=== PATIENT | male | born 1960 | race Caucasian/White ===

== ENCOUNTER 2023-07-20 21:28 | Observation (INO) | payer OTHER, SELFPAY ==
[2023-07-20 21:35] VITALS: BP 140/88; PULSE 78; RESP 16; TEMP 36.8; O2SAT 96; BMI 32.8
--- NOTE | 2023-07-20 21:43 | XR_ITS ---
The [address] [address] Patient Name: RADHA TARIQ MRN: [id number] date: 1960 Sex: M Assigned Patient Location: ER Current Patient Location: ER Accession/Order Number: [id number] Exam Date: 07/20/2023 22:35 Report Date: 07/20/2023 23:02 At the request of: RYAN ACUÑA Procedure: XR hip RT min 2V EXAM: XR hip RT min 2V HISTORY: fall COMPARISON: None. TECHNIQUE: 2 view study FINDINGS: Overall bony architecture is normal. The right hip joint space is satisfactorily maintained. Soft tissues are unremarkable. XR/XR hip RT min 2V IMPRESSION: No evidence for acute fracture or dislocation. Electronically authenticated by: Fozia REED Date: 07/20/2023 23:02
[2023-07-20] MEDS: ADACEL DIPH,PERTUSS(ACELL),TET VAC/PF 0.5 ML ADULT SYRINGE IM (21:55)
[2023-07-20] MEDS: LIDOCAINE HCL 1% 100 MG/10 ML MDV INJ (21:58)
--- NOTE | 2023-07-20 22:43 | CT_ITS ---
The [address] [address] Patient Name: RADHA TARIQ MRN: [id number] date: 1960 Sex: M Assigned Patient Location: ER Current Patient Location: ER Accession/Order Number: [id number] Exam Date: 07/20/2023 23:35 Report Date: 07/21/2023 00:05 At the request of: RYAN ACUÑA Procedure: CT hip RT wo con EXAM: CT hip RT wo con HISTORY: Right hip pain secondary to fall injury. COMPARISON: Right hip x-rays 07/20/2023 TECHNIQUE: Multiple axial views CT right hip without IV contrast. Coronal and sagittal reformats. FINDINGS: Acute comminuted nondisplaced fracture lines at the right anterior acetabulum with a dominant fracture line extending through the right acetabular table and superiorly into the right lower iliac bone. The fracture lines extends to lateral portion of the right superior pubic ramus. Acute nondisplaced right inferior pubic ramus fracture. Surrounding right hip upper thigh intramuscular swelling/edema. Minimal right hip effusion. No dislocation at the right hip joint. No fracture line through the right femoral neck/neck or trochanter. CT/CT hip RT wo con IMPRESSION: Multiple acute right hip bone fractures, as described above. Please see above. Electronically authenticated by: ALONZO MARTIN Date: 07/21/2023 00:05
[2023-07-20] MEDS: MORPHINE SULFATE 4 MG/ML VIAL IV (22:57)
--- NOTE | 2023-07-21 00:09 | ECG_ITS ---
The [facility] Test Date: 2023-07-21 Pat Name: RADHA TARIQ Department: Room: - Gender: Male Reference And Instruction Librarian: : 1960 Requested By: Order Number: [id number] Reading MD: TIA MONTES Measurements Intervals Reserve Rate: 91 P: 9 MA: 132 QRS: -3 QRSD: 104 T: 30 QT: 362 QTc: 411 Interpretive Statements 1100 Sinus rhythm 9110 normal ECG No previous ECG available for comparison Electronically Signed On 07-21-2023 7:05:28 EDT by TIA MONTES
--- NOTE | 2023-07-21 00:17 | ED.FALL1 ---
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 He hit his right forehead area sustaining a laceration the landed on his right hip and that's his main area of pain. No LOC and he doesn't have a headache or neck pain. No chest pain or shortness of breath. He points to the right hip to indicate area of pain. The left hip does not hurt and neither does either knee or ankle. No abdominal pain. This happened just before coming into the emergency department and he wasn't really able to get himself back up. He needed assistance and was brought in and he cannot bear weight on the right leg. Related Data Home Medications Medication Instructions Recorded Confirmed No Known Home Medications 07/20/23 07/20/23 Allergies Allergy/AdvReac Type Severity Reaction Status Date / Time No Known Drug Allergies Allergy Verified 07/20/23 21:40 Review of Systems ROS Narrative A ten point review of systems is negative except as noted above. PFSH PFS Social History Smoking status: Never smoker Exam Narrative Exam Narrative: Nurses note and vital signs reviewed and patient is not hypoxic. General: The patient appears well and in no apparent distress. Skin: Warm, dry, no pallor noted. There is no rash noted. Head: Normocephalic, C-shaped laceration of the right eyebrow without active bleeding. Total length is 2 cm. Eye: Normal conjunctiva, no drainage Ears, Nose, Mouth, and Throat: oral mucosa is moist. Nares patent. cervical spine nontender Cardiovascular: Regular Rate and Rhythm Respiratory: Patient is in no distress, no accessory muscle use, lungs are clear to auscultation, no wheezing, rales or rhonchi Back: non-tender GI: soft and nontender Musculoskeletal: left hip and knee have full range of motion. Small abrasion present on the left lower leg anteriorly. right hip is tender and he is unable to lift that leg off of the bed because of pain. Neurological: A&O x4, normal speech Psychiatric: Cooperative Constitutional Vital Signs, click to edit/add: Last Vital Signs Temp 98.3 F 07/20/23 21:35 Pulse 78 07/20/23 21:35 Resp 16 07/20/23 21:35 BP 140/88 07/20/23 21:35 Pulse Ox 96 07/20/23 21:35 O2 Del Method Room Air 07/20/23 21:35 Course Vital Signs Vital signs: Vital Signs Temperature 98.3 F 07/20/23 21:35 Pulse Rate 78 07/20/23 21:35 Respiratory Rate 16 07/20/23 21:35 Blood Pressure 140/88 07/20/23 21:35 Pulse Oximetry 96 07/20/23 21:35 Oxygen Delivery Method Room Air 07/20/23 21:35 Temperature 98.3 F 07/20/23 21:35 Pulse Rate 78 07/20/23 21:35 Respiratory Rate 16 07/20/23 21:35 Blood Pressure 140/88 07/20/23 21:35 Pulse Oximetry 96 07/20/23 21:35 Oxygen Delivery Method Room Air 07/20/23 21:35 MDM - Fall MDM Narrative Medical decision making narrative: nondisplaced right acetabular and pelvic fractures are identified. Findings are discussed with the patient and his . Orthopedics consulted and he is being admitted. Differential Diagnosis Differential diagnosis: Likely other (hip fracture, hip contusion, pelvic fracture) Imaging Data right hip x-ray, right hip CT: Radiologist's impression: Procedure: CT hip RT wo con EXAM: CT hip RT wo con HISTORY: Right hip pain secondary to fall injury. COMPARISON: Right hip x-rays 07/20/2023 TECHNIQUE: Multiple axial views CT right hip without IV contrast. Coronal and sagittal reformats. FINDINGS: Acute comminuted nondisplaced fracture lines at the right anterior acetabulum with a dominant fracture line extending through the right acetabular table and superiorly into the right lower iliac bone. The fracture lines extends to lateral portion of the right superior pubic ramus. Acute nondisplaced right inferior pubic ramus fracture. Surrounding right hip upper thigh intramuscular swelling/edema. Minimal right hip effusion. No dislocation at the right hip joint. No fracture line through the right femoral neck/neck or trochanter. IMPRESSION: Multiple acute right hip bone fractures, as described above. Please see above. Electronically authenticated by: ALONZO MARTIN Date: 07/21/2023 00:05 Procedure: XR hip RT min 2V EXAM: XR hip RT min 2V HISTORY: fall COMPARISON: None. TECHNIQUE: 2 view study FINDINGS: Overall bony architecture is normal. The right hip joint space is satisfactorily maintained. Soft tissues are unremarkable. IMPRESSION: No evidence for acute fracture or dislocation. Electronically authenticated by: Fozia REED Date: 07/20/2023 Discharge Plan Discharge Chief Complaint: Fall Clinical Impression: Closed pelvic fracture, Acetabulum fracture, right Patient Disposition: Admitted As Inpatient Time of Disposition Decision: 00:21 Condition: Good Prescriptions / Home Meds: No Action No Known Home Medications Stand Alone Forms: Portal Instructions Referrals: MILLY ROCHA DO [Primary Care Provider] - 1 week Procedures ED Procedure Instructions Procedures Procedures: The following procedure was performed by me. Right forehead laceration repair. Local infiltration was carried out with one percent lidocaine without epinephrine resulting in complete skin anesthesia. The area was prepped with Betadine ?3 and draped sterilely. It was explored for foreign bodies and then closed with three 5-0 Ethilon sutures resulting in good skin reapproximation and no complications. He tolerated the procedure well.
[2023-07-21 00:31] LABS: Basophils Percent Auto 0.1 % (0.2-2.0); Eosinophils Absolute Auto 0.1 10^3/uL (0.0-0.7); Eosinophils Percent Auto 0.7 % (0.9-7.0); Hematocrit 40.4 % (42.0-54.0); Hemoglobin 13.4 g/dL (14.0-18.0); Immature Granulocytes Abs Auto 0.04 10^3/uL (0.00-0.03); Immature Granulocytes Pct Auto 0.4 % (0.0-0.5); Lymphocytes Absolute Auto 1.3 10^3/uL (1.2-3.8); Lymphocytes Percent Auto 13.2 % (20.5-60.0); Mean Corpuscular HGB Conc 33.2 g/dL (29.9-35.2); Mean Corpuscular Hemoglobin 32.1 pg (25.9-34.0); Mean Corpuscular Volume 96.9 fL (80.0-94.0); Mean Platelet Volume 10.3 fL (9.5-13.5); Monocytes Absolute Auto 0.8 10^3/uL (0.3-0.8); Monocytes Percent Auto 7.4 % (1.7-12.0); Neutrophils Absolute Auto 7.9 10^3/uL (1.4-6.5); Neutrophils Percent Auto 78.2 % (43.0-75.0); Platelet Count 157 10^3/uL (150-450); Red Blood Count 4.17 10^6/uL (4.70-6.10); Red Cell Distribution Width 12.4 % (11.0-15.0); White Blood Count 10.1 10^3/uL (4.0-11.0)
[2023-07-21] MEDS: MORPHINE SULFATE 4 MG/ML VIAL IV (00:46)
[2023-07-21 00:50] LABS: Anion Gap 9.4; Calcium 7.9 mg/dL (8.5-10.1); Carbon Dioxide 27.3 mmol/L (21.0-32.0); Chloride 106 mmol/L (98-107); Estimated GFR (African America >60 (>=60); Estimated GFR (Non-African Ame >60 (>=60); Glucose 121 mg/dL (74-106); Potassium 3.7 mmol/L (3.5-5.1); Sodium 139 mmol/L (136-145)
[2023-07-21 01:11] VITALS: BP 135/73; PULSE 91; RESP 16; TEMP 36.8; O2SAT 96
[2023-07-21 02:00] VITALS: BP 138/84; PULSE 95; RESP 16; TEMP 37.1; O2SAT 93; BMI 33.7
--- NOTE | 2023-07-21 02:48 | P.PN_ITS ---
Progress Note: Subjective Subjective Interval history: CC: Rt LE pain HPI: This is usually healthy 63-year-old male who presents with above complaints. Patient fell from the ladder while working in his household. Patient stating that since a fall he not been able to bear weight on his right lower extremity. Trauma work-up in the emergency room has been negative besides right ramipril be and right acetabulum fractures. Dr. Salinas has been consulted by ED and going to see patient in the morning. Medical admission recommended. Exam Narrative Exam Narrative: ROS: 1.General: no fever, chills, not in distress 2.HEENT: no MCMULLEN, no blurry vision, no swallow problems, no nasal congestion, no sore throat 3.Pulmonary: no cough, SOB, wheezes 4.CVS: no CP, no palpitations, no SANTA, no SOB, no intermittent claudication 5.GI: no nausea, vomiting or diarrhea, no abdominal pain, no constipation, no hematemesis or hematochezia 6.: no renal colic, no hematuria, urinary frequency or urgency 7.Extremities: no edema 8.Neurological: no dizziness, vertigo, double or blurry vision, no no focal weakness, no paresthesia, no swallow or speech problems 9.Musculosceletal: See above n 10.Dermatological: no skin rashes, no lesions, no pruritus 11.Hematological: no bleeding, no hx/o clots 12.Endocrinological: no heat/cold intolerance, no hx/o diabetes 13.Psychiatric: no suicidal or homicidal thoughts Physical Exam: Not in distress, pleasant, lucid, cooperative, Head - atraumatic, eyes - pupils equal, round, reactive to light, extra ocular movement intact, MMM Neck - supple, thyroid not enlarged, LN not palpated Lungs - clear to auscultation, no dullness on percussion CVS - heart sounds S1, S2, no additional murmurs gallop, regular rate and rhythm Gastrointestinal?abdomen is soft, non-tender, non-distended, no organomegaly, positive bowel sounds Extremities no clubbing, cyanosis or edema Neurological?cranial nerve II?XII grossly intact, no meningeal signs, no cerebellar signs, no sensory deficit Musculoskeletal - joints, no effusions, ROM limited in the right hip due to pain Dermatological - the skin dry, warm, no rashes Psychiatric?patient is AAO X3, patient has normal affect Constitutional Vital Signs, click to edit/add: Last Vital Signs Temp 98.8 F 07/21/23 02:00 Pulse 95 H 07/21/23 02:00 Resp 16 07/21/23 02:00 BP 138/84 07/21/23 02:00 Pulse Ox 93 L 07/21/23 02:00 O2 Del Method Room Air 07/21/23 02:00 Progress Note: Objective Labs Labs: Short CBC 07/21/23 Range/Units 00:25 WBC 10.1 (4.0-11.0) 10^3/uL Hgb 13.4 L (14.0-18.0) g/dL Hct 40.4 L (42.0-54.0) % Plt Count 157 (150-450) 10^3/uL BMP 07/21/23 00:25 Sodium 139 Potassium 3.7 Chloride 106 Carbon Dioxide 27.3 BUN 14.0 Creatinine 1.00 Glucose 121 H Calcium 7.9 L Progress Note: A&P Assessment and Plan (1) Acetabulum fracture, right: Assessment and Plan: Patient presented after the fall with pain in the right side. Imaging studies revealed right acetabulum and right pelvic fracture. I am going to keep patient nonweightbearing for now. Pain regiment ordered. Adjust as needed. Follow-up with Dr. Herrera for further recommendations. (2) Closed pelvic fracture: Assessment and Plan: See above Plan As the provider for the telehealth service, I attest that I introduced myself to the patient, provided my credentials, disclosed by location and determined that based on a review of the patient's chart and discussion with members of the patient's treatment team, telemedicine via real-time, 2 way, and interactive audio and video platform is an appropriate and effective means of providing the service. ?The patient and I mutually agree this visit is appropriate for telemedicine. ?The virtual encounter was taken place from? [facility] [place]. ?The encounter took approximately 35 minutes. ?The nurse was present during the e ntire time and I was able to move the stethoscope in appropriate directions. ?The patient was evaluated at the Hospital ? Portions of this note may be dictated using [employer] voice recognition software. Variances in spelling and vocabulary are possible and unintentional. Not all errors may be caught and/or corrected. Please notify the author if any discrepancies are noted and/or if the meaning of any statement is unclear.? ? Patient verbally consented for treatment via video visit with patient currently located at the [facility] and provider located in [place]. Telemedicine Attestation Telemedicine Attestation I conducted this encounter from [[place]] via secure live, [id number] video conference with the patient, located at [facility] with [pelvic fracture]. Prior to the interview, the risks and benefits of telemedicine were discussed with the patient and verbal consent was obtained.
[2023-07-21 05:18] LABS: Basophils Percent Auto 0.4 % (0.2-2.0); Eosinophils Absolute Auto 0.1 10^3/uL (0.0-0.7); Eosinophils Percent Auto 1.2 % (0.9-7.0); Hematocrit 39.2 % (42.0-54.0); Hemoglobin 12.9 g/dL (14.0-18.0); Immature Granulocytes Abs Auto 0.03 10^3/uL (0.00-0.03); Immature Granulocytes Pct Auto 0.4 % (0.0-0.5); Lymphocytes Absolute Auto 2.1 10^3/uL (1.2-3.8); Lymphocytes Percent Auto 24.7 % (20.5-60.0); Mean Corpuscular HGB Conc 32.9 g/dL (29.9-35.2); Mean Corpuscular Hemoglobin 31.9 pg (25.9-34.0); Mean Platelet Volume 10.4 fL (9.5-13.5); Monocytes Absolute Auto 0.9 10^3/uL (0.3-0.8); Monocytes Percent Auto 10.5 % (1.7-12.0); Neutrophils Absolute Auto 5.3 10^3/uL (1.4-6.5); Neutrophils Percent Auto 62.8 % (43.0-75.0); Platelet Count 142 10^3/uL (150-450); Red Blood Count 4.04 10^6/uL (4.70-6.10); Red Cell Distribution Width 12.4 % (11.0-15.0); White Blood Count 8.4 10^3/uL (4.0-11.0)
[2023-07-21 05:30] LABS: BUN Creatinine Ratio 14.4; Calcium 7.6 mg/dL (8.5-10.1); Carbon Dioxide 28.6 mmol/L (21.0-32.0); Chloride 105 mmol/L (98-107); Estimated GFR (African America >60 (>=60); Estimated GFR (Non-African Ame >60 (>=60); Glucose 116 mg/dL (74-106); Potassium 3.6 mmol/L (3.5-5.1); Sodium 138 mmol/L (136-145)
[2023-07-21 06:00] VITALS: BP 126/75; PULSE 72; RESP 18; TEMP 36.3; O2SAT 92
--- NOTE | 2023-07-21 06:55 | PM.ORCN ---
History of Present Illness HPI Consult date: 07/21/23 Consult reason: fracture Chief complaint: Fall FX ACETABUL RT UM CLOSED PELVIC FX Narrative: Patient was on the fourth rung from the bottom on a ladder yesterday when he fell off onto his right hip with pain and inability to bear weight. Also sustained a laceration to the scalp. In the emergency room a CT was obtained which showed a right acetabular fracture. Patient has been admitted for further treatment. He denies pain elsewhere. Denies paresthesias in his RLE. Review of Systems ROS Status of ROS 10 or more systems reviewed and unremarkable except as noted in history and below [facility] Surgical History (Updated 07/21/23 @ 02:40 by Hitesh Lee) History of appendectomy ?Z90.49 - Acquired absence of other specified parts of digestive tract (ICD-10) History of bilateral knee arthroplasty ?Z96.653 - Presence of artificial knee joint, bilateral (ICD-10) Family History (Updated 07/21/23 @ 02:42 by Hitesh Lee) Grandmother Family history of cancer Family history of stroke Father Family history of diabetes mellitus Family history of hypertension Mother Family history of diabetes mellitus Family history of hypertension Social History (Updated 07/21/23 @ 02:47 by Hitesh Lee) Within the past year, how often did you have a drink containing alcohol: 2-3 times a week Within the past year, how many standard drinks containing alcohol did you have on a typical day: 1 or 2 Within the past year, how often did you have six or more drinks on one occasion: less than monthly Total score: 1 Score interpretation: A score of 4 or more indicates drinking is likely to affect patient's safety. Smoking status: Never smoker Second hand tobacco smoke exposure: No Non-prescribed substance use: denies use Previous occupational history: [employer], armored truck driver Known occupational exposures/hazards: Yes Known occupational exposures/hazards details: chemical exposure Highest level of school completed/degree received: high school graduate Do you want help with school or training: No Are you now , , , , never or living with a partner: In a typical week, how many times do you talk on the telephone with family, friends, or neighbors: 3 or more times per week How often do you get together with friends or relatives: once per week How often do you attend yazdanism or worship services: 4 or more times per year Do you belong to any clubs or organizations such as yazdanism groups unions, fraternal or athletic groups, or school groups: yes Total score: 4 Score interpretation: A score of greater than or equal to 2 indicates the lowest level of social isolation. Little interest or pleasure in doing things: not at all Feeling down, depressed, or hopeless: not at all Feel stressed/tense/nervous/anxious/difficulty sleeping: to some extent Due to disability, difficulty making decisions: No Do you think of yourself as: straight/heterosexual Gender Identity: male Meds Home Medications and Allergies Home Medications Medication Instructions Recorded Confirmed Type No Known Home Medications 07/20/23 07/20/23 History Allergies Allergy/AdvReac Type Severity Reaction Status Date / Time hay fever Allergy Mild Uncoded 07/21/23 02:48 Exam Narrative Exam Narrative: On exam he is in no obvious distress. RLE skin is intact. Pain with log roll of hip. No knee or ankle tenderness. Palp. PT pulse, good cap. refill. Wiggles toes. No LLE or BLE pain with ROM. Constitutional Vital Signs, click to edit/add: Last Vital Signs Temp 97.4 F L 07/21/23 06:00 Pulse 72 07/21/23 06:00 Resp 18 07/21/23 06:00 BP 126/75 07/21/23 06:00 Pulse Ox 92 L 07/21/23 06:00 O2 Del Method Room Air 07/21/23 06:00 Results Labs Labs: Abnormal lab results 07/21/23 07/21/23 Range/Units 00:25 04:50 RBC 4.17 L 4.04 L (4.70-6.10) 10^6/uL Hgb 13.4 L 12.9 L (14.0-18.0) g/dL Hct 40.4 L 39.2 L (42.0-54.0) % MCV 96.9 H 97.0 H (80.0-94.0) fL Plt Count 142 L (150-450) 10^3/uL Neut % (Auto) 78.2 H (43.0-75.0) % Lymph % (Auto) 13.2 L (20.5-60.0) % Eos % (Auto) 0.7 L (0.9-7.0) % Baso % (Auto) 0.1 L (0.2-2.0) % Neut # (Auto) 7.9 H (1.4-6.5) 10^3/uL [place] # (Auto) 0.9 H (0.3-0.8) 10^3/uL Abs Immat Gran (auto) 0.04 H (0.00-0.03) 10^3/uL Glucose 121 H 116 H (74-106) mg/dL Calcium 7.9 L 7.6 L (8.5-10.1) mg/dL H & H 07/21/23 07/21/23 Range/Units 00:25 04:50 Hgb 13.4 L 12.9 L (14.0-18.0) g/dL Hct 40.4 L 39.2 L (42.0-54.0) % All other labs normal. Diagnostic results Hip CT: other (CT right hip shows nondisplaced acetabular fracture) Assessment and Plan Assessment and Plan (1) Acetabulum fracture, right: (2) Closed pelvic fracture: Plan For his right acetabular fracture he will be non weight bearing for 10 - 12 weeks.. PT for gait, transfer training Pain control D/C home when doing well with therapy Follow up in office on 07/27 to repeat x-rays
--- NOTE | 2023-07-21 08:48 | P.HP_ITS ---
Patient seen and examined. Aggtomasa with findings below. Fall with fractures and ortho states nonsurgical. Will remain NWB and start PT. Pain tolerable. If does well with PT likely home in am. Final diagnosis: 1. Acetabular fracture 2. Pubic rami fracture 3. Hyperglycemia. H&P: HPI History of Present Illness Chief complaint: Fall FX ACETABUL RT UM CLOSED PELVIC FX Narrative: Date/Time of exam: 07/21/23814 This is a 63-year-old male patient with a benign past medical history As noted below, who presented to the ED In the early a.m. hours after suffering a mechanical fall at home. 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 He denies any prodromal symptoms leading to his fall confirming that it was a simple mechanical fall. He did suffer a laceration to the right eyebrow but denies any post fall dizziness or vision changes. Work-up in the ED revealed a comminuted, non-displaced right acetabular fracture of the iliac and superior pubic ramus per CT imaging. His R eyebrow lac was sutured in the ED. He is being admitted to the hospitalist service in observation with orthopedic surgery on consult. At the time of my exam this morning the patient is is in no acute distress. He does note significant pain whenever he tries to lift his right leg or coughs. He has already been seen in consult by Dr. Salinas, orthopedic surgeon, who indicated this is a nonsurgical fracture and the patient must remain nonweightbearing for 10-12 weeks. The patient denies any chest pain, shortness of breath, dizziness, palpitations, N/V/D, or any other acute complaints. His pain is adequately controlled with current modalities. Review of Systems ROS Status of ROS 10 or more systems reviewed and unremarkable except as noted in history and below PFSH PFS Surgical History History of appendectomy ?Z90.49 - Acquired absence of other specified parts of digestive tract (ICD- 10) History of bilateral knee arthroplasty ?Z96.653 - Presence of artificial knee joint, bilateral (ICD-10) Family History Grandmother Family history of cancer Family history of stroke Father Family history of diabetes mellitus Family history of hypertension Mother Family history of diabetes mellitus Family history of hypertension Social History Within the past year, how often did you have a drink containing alcohol: 2-3 times a week Within the past year, how many standard drinks containing alcohol did you have on a typical day: 1 or 2 Within the past year, how often did you have six or more drinks on one occasion: less than monthly Total score: 1 Score interpretation: A score of 4 or more indicates drinking is likely to affect patient's safety. Smoking status: Never smoker Second hand tobacco smoke exposure: No Non-prescribed substance use: denies use Previous occupational history: [employer], truck driver rubbish collector Known occupational exposures/hazards: Yes Known occupational exposures/hazards details: chemical exposure Highest level of school completed/degree received: high school graduate Do you want help with school or training: No Are you now , , , , never or living with a partner: In a typical week, how many times do you talk on the telephone with family, friends, or neighbors: 3 or more times per week How often do you get together with friends or relatives: once per week How often do you attend worship or holiness services: 4 or more times per year Do you belong to any clubs or organizations such as worship groups unions, fraternal or athletic groups, or school groups: yes Total score: 4 Score interpretation: A score of greater than or equal to 2 indicates the lowest level of social isolation. Little interest or pleasure in doing things: not at all Feeling down, depressed, or hopeless: not at all Feel stressed/tense/nervous/anxious/difficulty sleeping: to some extent Due to disability, difficulty making decisions: No Do you think of yourself as: straight/heterosexual Gender Identity: male Meds Home Medications and Allergies Home Medications Medication Instructions Recorded Confirmed Type No Known Home Medications 07/20/23 07/20/23 History Allergies Allergy/AdvReac Type Severity Reaction Status Date / Time hay fever Allergy Mild Uncoded 07/21/23 02:48 Exam Constitutional Vital Signs, click to edit/add: Last Vital Signs Temp 97.4 F L 07/21/23 06:00 Pulse 72 07/21/23 06:00 Resp 18 07/21/23 06:00 BP 126/75 07/21/23 06:00 Pulse Ox 92 L 07/21/23 06:00 O2 Del Method Room Air 07/21/23 06:00 Common normals: no apparent distress, oriented x3, alert and well nourished General appearance: cooperative Orientation/consciousness: Yes awake [facility] Common normals: normocephalic, hearing grossly normal bilaterally, external ears normal, external nose normal and moist oral mucous membranes Head and scalp: normocephalic and laceration (R lateral eyebrown, sutures in place) Face and sinus: normal facial exam Nose: external nose normal External ear: external ears normal Eye Common normals: PERRL, EOMs intact bilaterally, conjunctivae normal and no scleral icterus General eye: normal appearance of both eyes Alignment: alignment normal Eyelid: eyelids normal Conjunctiva: conjunctiva(e) normal Pupil: PERRL Neck & C-Spine Common normals: full ROM, supple and no JVD Chest Common normals: inspection of chest normal Chest: symmetrical chest wall rise Respiratory Common normals: normal respiratory effort, no retractions, no use of accessory muscles and clear to auscultation bilaterally Effort & inspection: able to speak in complete sentences Auscultation: clear to auscultation bilaterally Cardio Common normals: no JVD, regular rate, regular rhythm, S1 normal heart sound, S2 normal heart sound, no gallops, no clicks, no murmurs, no rub and peripheral pulses 2+ throughout Rate: regular rate Rhythm: regular rhythm Heart sounds: S1 normal and S2 normal Peripheral pulses: pulses 2+ throughout GI Common normals: Normal to inspection, nondistended, normoactive bowel sounds present, soft to palpation, non-tender, no hepatosplenomegaly, no masses and no bruits Palpation: soft and no hepatosplenomegaly Bladder/kidney exam: bladder normal to palpation Back & Pelvis Common normals: thoracic and lumbar spine normal to inspection Extremity Common normals: normal capillary refill and no pedal edema General: normal exam except as noted; no clubbing and no cyanosis Right lower extremity: hip joint (Pain w/ minimal movement/rotation) and upper leg (Swelling) Neuro Torres Coma Scale: GCS not evaluated Common normals: oriented x3, CN's II-XII intact bilaterally, moves all extremities, no focal motor deficits and no sensory deficits noted Sensorium/orientation: awake and alert Speech: speech normal Motor exam: strength 5/5 throughout Psych Common normals: mental status grossly normal, thought process normal, affect normal and activity/motor behavior normal Thought process: normal thought process Results Labs Labs: Short CBC 07/21/23 07/21/23 Range/Units 00:25 04:50 WBC 10.1 8.4 (4.0-11.0) 10^3/uL Hgb 13.4 L 12.9 L (14.0-18.0) g/dL Hct 40.4 L 39.2 L (42.0-54.0) % Plt Count 157 142 L (150-450) 10^3/uL BMP 07/21/23 07/21/23 00:25 04:50 Sodium 139 138 Potassium 3.7 3.6 Chloride 106 105 Carbon Dioxide 27.3 28.6 BUN 14.0 14.0 Creatinine 1.00 0.97 Glucose 121 H 116 H Calcium 7.9 L 7.6 L Pulse Oximetry Attestation: I have reviewed the pertinent pulse oximetry results. ECG Attestation: ?I have reviewed the pertinent ECG results. Prior ECG tracings: not available for review Interpretation: Interpretive Statements 1100 Sinus rhythm 9110 normal ECG No previous ECG available for comparison Imaging R Hip XR: Attestation: I have reviewed the pertinent imaging results. Radiologist's impression: IMPRESSION: No evidence for acute fracture or dislocation. R Hip CT: Attestation: I have reviewed the pertinent imaging results. Radiologist's impression: IMPRESSION: Multiple acute right hip bone fractures, as described above. Please see above. Assessment and Plan Assessment and Plan (1) Acetabulum fracture, right: Assessment and Plan: ACUTE * Adm Observation * C/S Dr Salinas, Orthopedic Surgeon - we appreciate his assistance with this pt's care * Pain management and weight bearing/PT instructions deferred to the orthopedic service * NWB instructions x 10-12 wks * PT Eval & treat * PRN stool softener to prevent constipation while on narcotic pain medications (2) Hyperglycemia: Assessment and Plan: ACUTE * Mild hyperglycemia on ED and AM labs * Likely reactive to acute fx * Check A1C in AM to assess for undiagnosed pre-diabetes/diabetes baseline * Likely defer to PCP for follow up, but may initiate glycemic control medications prior to d/c pending result * CBC, CMP in AM
[2023-07-21] MEDS: ACETAMINOPHEN 325 MG TABLET 650 MG PO ×3 (08:53→21:29)
--- NOTE | 2023-07-21 12:36 | CM.NOTE ---
Rounds made with Dr. Rivers, awaiting PT and OT to evaluate pt for discharge needs.
[2023-07-21 13:29] VITALS: BP 123/77; PULSE 75; RESP 20; TEMP 37.2
--- NOTE | 2023-07-21 13:49 | SWNOTE1 ---
GARCIA met with pt to discuss dc needs. Pt lives at home with his , he is a [employer]. He had a fall and his fracture non-surgical. Pt is NWB 10-12 weeks. Pt did work with physical therapy and did well, they recommended home health. Pt is agreeable with HH. Pt did use a walker with therapy, he stated he can borrow one from his sister. SW reviewed HH list from medicare.gov, but stated he does not have a preference on HH companies. SW to figure out which company takes his insruance.
--- NOTE | 2023-07-21 14:00 | SWNOTE1 ---
GARCIA called [facility], they do not accept, GARCIA called [facility] and they do not accept. GARCIA reached out to [facility] and they do accept and will need face sheet to run insurance. GARCIA sent to [facility] .
--- NOTE | 2023-07-21 15:44 | SWNOTE1 ---
[facility] is able to accept. SW provided pt with name and phone number of company.
[2023-07-21 19:09] VITALS: RESP 20
[2023-07-21 19:13] VITALS: BP 134/71; PULSE 78; RESP 20; TEMP 36.8; O2SAT 92
[2023-07-22 04:06] VITALS: BP 159/73; PULSE 88; RESP 18; TEMP 36.9; O2SAT 96
[2023-07-22] MEDS: ACETAMINOPHEN 325 MG TABLET 650 MG PO ×2 (04:07→10:12)
[2023-07-22 05:41] LABS: Estimated Average Glucose 114 mg/dL; Glycohemoglobin A1C 5.6 % (4.5-6.2)
[2023-07-22 08:00] VITALS: RESP 16
--- NOTE | 2023-07-22 10:39 | PT.DAILY ---
Physical Therapy Daily Note PT Daily Note/Assess Start: 07/22/23 10:35 Freq: Status: Active Protocol: Document 07/22/23 10:35 GRICELDA (Rec: 07/22/23 10:39 GRICELDA [id number]) Physical Therapy Daily Note/Assessment Time In/Time Out Time In 10:05 Time Out 10:20 Pain In Pain Level 2 Pain Out Pain Level 2 Subjective Subjective Pt supine upon arrival. Agrees to PT. Pain in R hip is 2/10 currently. Planned dc to home with [facility] today - pending Ortho approval. Therapeutic Exercise Time Therapeutic Exercise Minutes (minutes) 8 Therapeutic Exercise Units 1 Therapeutic Exercise Treatment Therapeutic Exercise Treatment Standing ther ex complete at RW with bilat UE support while maintaining NWB R LE - R LE hip flexion, marches, HS curls and AP 10x. L HR 10x. Seated ex in BS chair AP, marches, add squeezes and LAQ 10x ea. Therapeutic Activity Time Therapeutic Activity Minutes (minutes) 5 Therapeutic Activity Units 0 Therapeutic Activity Treatment Bed Mobility Ability Standby Assistance Chair Transfer Ability Standby Assistance Therapeutic Activity Comments Supine>sit SBA with pt using UEs to advance R LE to sit EOB . Sits EOB unsupported 2 min while nursing gives medication . Pt sit>stand from EOB to RW SBA. Pt amb in room 2 laps for 100' total with RW while maintaining NWB R LE. UEs fatigued with this. Remains in BS chair upon completion with call light in reach and needs met. Total Physical Therapy Time Total Therapy Minutes 13 Total Physical Therapy Units 1 Summary Daily Note Summary Good tolerance with session today. No assistance needed for transfers/gait. Able to maintain NWB throughout entire session. Pain does not increase with activity today.
--- NOTE | 2023-07-22 11:08 | P.DS_ITS ---
Patient seen and examined. Agree with assessment below. DS: Providers Provider Date of admission: 07/21/23 01:35 Primary care physician: MILLY ROCHA DO Admitting clinician: Paz Nina Attending physician on admission: Jasmeet Rivers Consults: 07/21/23 09:15 Physical Therapy Eval and Treat Routine Reason for consultation: R acetabular fx, NWB Has provider been notified: No Attending physician on discharge: Jasmeet Rivers Discharging clinician: Paz Nina Anticipated date of discharge: 07/22/23 DS: Diagnosis Discharge Diagnosis (1) Acetabulum fracture, right: (2) Closed pelvic fracture: (3) Hyperglycemia: DS: Summary Hospital Course Hospital Course: Reason for admission: See ER note and H&P for details. 63 y/o male to ER after a fall. Fell off a ladder and landed on right hip. Severe pain and not able to stand or bear weight. To ER and CT showed pubic rami fracture and fracture of acetabulum. Admitted for treatment. Hospital course: Ortho consulted and not surgical. Recommended NWB for 10-12 weeks. Started PT and did well. Pain tolerable with medication. Moving well and able to remain NWB. Patient reported having both a walker and crutches at home. Discharged home in stable condition. Will f/u with ortho as scheduled. Use pain medication PRN. Status at Discharge Functional status at discharge: uses cane/walker Overall status at discharge: patient is not back to baseline Time Spent with Patient Time attestation: Total time spent providing and/or coordinating discharge services: Time spent: greater than 30 minutes Specific discharge activities: Physical exam, discussion of discharge plan, questions answered. Exam Constitutional Vital Signs, click to edit/add: Last Vital Signs Temp 98.4 F 07/22/23 04:06 Pulse 88 07/22/23 04:06 Resp 16 07/22/23 08:00 BP 159/73 H 07/22/23 04:06 Pulse Ox 96 07/22/23 04:06 O2 Del Method Room Air 07/22/23 04:06 O2 Flow Rate 94 07/21/23 13:29 Common normals: no apparent distress, oriented x3 and alert General appearance: cooperative Orientation/consciousness: Yes awake [facility] Common normals: normocephalic and head/scalp atraumatic Head and scalp: normocephalic and atraumatic Eye Common normals: PERRL, EOMs intact bilaterally, conjunctivae normal and no scleral icterus Conjunctiva: conjunctiva(e) normal Pupil: PERRL Neck & C-Spine Common normals: no JVD Respiratory Common normals: normal respiratory effort, no use of accessory muscles and clear to auscultation bilaterally Effort & inspection: able to speak in complete sentences and symmetric chest movement Auscultation: clear to auscultation bilaterally Cardio Common normals: no JVD, regular rate, regular rhythm, S1 normal heart sound, S2 normal heart sound, no gallops, no clicks, no murmurs, no rub and peripheral pulses 2+ throughout Rate: regular rate Rhythm: regular rhythm Heart sounds: S1 normal and S2 normal Peripheral pulses: pulses 2+ throughout GI Common normals: Normal to inspection, nondistended, normoactive bowel sounds present, soft to palpation and non-tender Palpation: soft Bladder/kidney exam: bladder normal to palpation Extremity Common normals: normal to inspection, normal capillary refill and no pedal edema General: no clubbing and no cyanosis Right lower extremity: hip joint Right hip: palpation (Tender) and ROM (Decreased ROM 2/2 pain) Neuro Common normals: oriented x3, CN's II-XII intact bilaterally, moves all extremities, no focal motor deficits and no sensory deficits noted Sensorium/orientation: awake and alert Speech: speech normal Psych Common normals: mental status grossly normal and activity/motor behavior normal Appearance: grossly normal DS: Data Data Completed and Pending Completed studies during hospitalization: R Hip XR: IMPRESSION: No evidence for acute fracture or dislocation. Hip CT: IMPRESSION: Multiple acute right hip bone fractures, as described above. Please see above. Labs on day of discharge: Labs from last 24 hours 07/22/23 05:13 Estimat Average Glucose 114 Hemoglobin A1c 5.6 Discharge Plan Discharge Disposition: Home Health Service Condition: Good Discharge Medications: New acetaminophen 325 mg Tablet 650 mg PO Q6H PRN (Reason: pain) Qty: 60 0RF hydrocodone-acetaminophen 5-325 mg Tablet 1 tab PO Q6H PRN (Reason: Pain) Qty: 20 0RF sennosides-docusate sodium [Senna Plus] 8.6-50 mg Tablet 1 tab PO BID PRN (Reason: Constipation) Qty: 60 0RF Rx Instructions: May take up to 2 tabs twice daily Patient Instructions: Acetaminophen (By mouth), Hydrocodone/Acetaminophen (By mouth), Senna (By mouth) (Senna, Senna-lax), Pelvic Fracture (ED) Activity Restrictions/Additional Instructions: - Maintain R leg non-weightbearing until instructed otherwise by Dr Perez - Follow up w/ Dr Perez on 07/27/23 at 11 AM - Home health services for PT/OT and intermediate monitoring of pain manageme nt and safety at home [employer] Instructions: Discharge with [facility], phone number is [phone] Forms: Portal Instructions Follow Up Appointments: Dr Perez 07/27/23 @ 11:00 am Discharge Date/Time: 07/22/23 13:08
--- NOTE | 2023-07-22 12:45 | CM.NOTE ---
Rounds made with Dr. Rivers this am, ok to discharge to home. Pt verbalizes that he does have walker and crutches at home and verbalizes being comfortable with using either and his NWB status.
--- NOTE | 2023-07-22 14:10 | SWNOTE1 ---
Pt is discharged today and will discharge with [facility], SW sent discharge orders to home health.
--- NOTE | 2023-07-23 16:12 | CM.DCFOLLOWU ---
Person spoke with: patient How are you feeling? well, pain controlled How is your pain? controlled Did you understand your discharge instructions? yes Do you have any questions about your discharge instructions? no Were you given any prescriptions at discharge? yes Were you able to get your prescriptions filled? yes Do you understand how to take your medications as ordered? yes Do you have any questions about your follow up appointment and do you plan to keep your follow up appointment? no questions, follow up with Dr. Perez on 07/27 Is there anything else that you would like to discuss? not at this time Questions/Comments/Concerns/Other:
== END 2023-07-22 13:08 | disposition home health service (06) ==
LOC: ER 07-21 00:22 → MS 07-21 02:44
PROVIDERS: Admitting Provider Internal Medicine; Emergency Provider Emergency Medicine; PCP Family Medicine; Visit Provider Nurse Practitioner
DX: S32.401A Unspecified fracture of right acetabulum, initial encounter for closed fracture (principal); S32.501A Unspecified fracture of right pubis, initial encounter for closed fracture; R73.9 Hyperglycemia, unspecified; S01.81XA Laceration without foreign body of other part of head, initial encounter; Z23 Encounter for immunization; W11.XXXA Fall on and from ladder, initial encounter; Z90.49 Acquired absence of other specified parts of digestive tract; Z96.653 Presence of artificial knee joint, bilateral
CPT/HCPCS: 12011; 36415; 73502; 73700; 80048; 83036; 85025; 90471; 90715; 93005; 96374; 96376; 97110; 97116; 97161; 97530; 99285; G0378; Q3014

== ENCOUNTER 2023-07-27 10:55 | Outpatient (OUT) | payer OTHER, SELFPAY ==
--- NOTE | 2023-07-27 11:01 | XR_ITS ---
[address] [address] Patient Name: RADHA TARIQ MRN: [id number] date: 1960 Sex: M Assigned Patient Location: [facility] Current Patient Location: Accession/Order Number: [id number] Exam Date: 07/27/2023 11:05 Report Date: 07/28/2023 07:58 At the request of: MARTIN VILLATORO Procedure: XR hip RT 2V w/ pelvis PROCEDURE: XR hip RT 2V w/ pelvis COMPARISON: 07/20/2023 HISTORY: Right hip pain M25.551 FINDINGS: BONES:Right acetabular fractures seen by CT exam are poorly seen on plain x-ray . No new fracture or dislocation. Mild bilateral hip osteoarthropathy. Moderate degenerative changes of the visualized lumbar spine SOFT TISSUES:Negative. No visible soft tissue swelling. EFFUSION:None visible. OTHER: Negative. XR/XR hip RT 2V w/ pelvis IMPRESSION: No definite abnormality observed by X-ray Electronically authenticated by: RADHA CADET Date: 07/28/2023 07:58
== END 2023-07-27 10:56 | disposition home or self-care (01) ==
LOC: RAD 10:55
PROVIDERS: PCP Family Medicine; Visit Provider Orthopaedic Surgery
DX: M25.551 Pain in right hip (principal)
CPT/HCPCS: 73502

== ENCOUNTER 2023-08-03 09:09 | Outpatient (OUT) | payer OTHER, SELFPAY ==
--- NOTE | 2023-08-03 09:13 | XR_ITS ---
The [address] [address] Patient Name: RADHA TARIQ MRN: [id number] date: 1960 Sex: M Assigned Patient Location: [facility] Current Patient Location: [facility] Accession/Order Number: [id number] Exam Date: 08/03/2023 09:45 Report Date: 08/03/2023 13:15 At the request of: MARTIN VILLATORO Procedure: XR hip RT 2V w/ pelvis PROCEDURE: XR hip RT 2V w/ pelvis HISTORY: Closed Displaced Fracture Right Acetabulum S32.401A COMPARISON: XR hip right 07/27/2023 FINDINGS: BONES:Small fracture line extending from anterior acetabulum into right superior pubic ramus. No additional fractures of the anterior acetabulum seen on prior CT study are not visible. SOFT TISSUES:No visible soft tissue swelling. EFFUSION:None visible. OTHER: Negative. XR/XR hip RT 2V w/ pelvis IMPRESSION: 1. Hip radiographs will provide limited follow-up ability of the previously seen nondisplaced right acetabulum fractures. A single fracture line extending into the lateral aspect of the right superior pubic ramus is visible and appears unchanged. Electronically authenticated by: MARTIN TIPTON Date: 08/03/2023 13:15
== END 2023-08-03 09:10 | disposition home or self-care (01) ==
LOC: RAD 09:09
PROVIDERS: PCP Family Medicine; Visit Provider Orthopaedic Surgery
DX: S32.401A Unspecified fracture of right acetabulum, initial encounter for closed fracture (principal)
CPT/HCPCS: 73502

== ENCOUNTER 2023-08-31 08:35 | Outpatient (OUT) | payer OTHER, SELFPAY ==
--- NOTE | 2023-08-31 08:36 | XR_ITS ---
The [address] [address] Patient Name: RADHA TARIQ MRN: [id number] date: 1960 Sex: M Assigned Patient Location: [facility] Current Patient Location: [facility] Accession/Order Number: [id number] Exam Date: 08/31/2023 08:40 Report Date: 08/31/2023 10:35 At the request of: MARTIN VILLATORO Procedure: XR hip RT 2V w/ pelvis PROCEDURE: XR hip RT 2V w/ pelvis HISTORY: Other Specified Fracture Of Right Acetabulum S32.491D ; follow-up acetabular fracture COMPARISON: XR hip right 08/03/2023, CT hip right 07/27/2023a FINDINGS: BONES:Suspected nondisplaced fracture line extending cephalad from the medial aspect of the right acetabulum and also within the superior pubic ramus near the symphysis pubis. SOFT TISSUES:No visible soft tissue swelling. EFFUSION:None visible. OTHER: Negative. XR/XR hip RT 2V w/ pelvis IMPRESSION: 1. Known, nondisplaced right pelvic/acetabular fractures seen on prior CT study. No appreciable displacement on today's plain film studies. Electronically authenticated by: MARTIN TIPTON Date: 08/31/2023 10:35
== END 2023-08-31 08:36 | disposition home or self-care (01) ==
LOC: RAD 08:35
PROVIDERS: PCP Family Medicine; Visit Provider Orthopaedic Surgery
DX: S32.491D Other specified fracture of right acetabulum, subsequent encounter for fracture with routine healing (principal)
CPT/HCPCS: 73502

== ENCOUNTER 2023-09-22 20:00 | Emergency (ER) | payer OTHER, SELFPAY ==
[2023-09-22 20:03] VITALS: BP 144/86; PULSE 93; RESP 16; TEMP 36.3; O2SAT 97; BMI 31.9
--- NOTE | 2023-09-22 20:16 | ED_ITS ---
HPI - Extremity Problem General Chief complaint: Extremity Problem, Nontraumatic Stated complaint: LE PAIN Time Seen by Provider: 09/22/23 20:10 Source: patient Mode of arrival: crutches Limitations: no limitations History of Present Illness HPI Narrative: Patient is a 63-year-old male who presents to the emergency department for 2-day history of swelling to the right lower extremity. Patient was diagnosed with a nonoperative right acetabular fracture 2 months ago and has been using crutches, he has been nonweightbearing. He states since yesterday he has noted swelling and subjective warmth to the right posterior calf. He states he feels as though the leg is swollen distal to the right knee. There has not been any significant redness. No open wounds or drainage. No fevers or vomiting. He states he otherwise feels fine. He has no pain to the area. He denies any new injuries or traumas. He has no history of blood disorder or blood clots. He does not take blood thinners. Related Data Home Medications Medication Instructions Recorded Confirmed calcium 500 mg tablet mg 09/22/23 Previous Rx's Medication Instructions Recorded apixaban 5 mg tablet (Eliquis) See Rx Instructions .Route 09/22/23 .COMPLEX 28 days #70 tabs Allergies Allergy/AdvReac Type Severity Reaction Status Date / Time hay fever Allergy Mild Uncoded 09/22/23 20:09 Review of Systems ROS Constitutional Denies: fever or chills Eyes Denies: change in vision Ears, nose, mouth, and throat Denies: throat pain or nasal congestion Cardiovascular Denies: chest pain Respiratory Denies: shortness of breath Gastrointestinal Denies: nausea or vomiting Musculoskeletal Reports: extremity swelling; Denies: back pain, neck pain or extremity pain Integumentary/Breast Denies: rash, redness, skin pain or skin tenderness Neurological Denies: numbness in extremities or weakness in extremities Hematologic/Lymphatic Denies: easy bruising Allergic/Immunologic Denies: hives PFSH PFSH Surgical History History of appendectomy ?Z90.49 - Acquired absence of other specified parts of digestive tract (ICD- 10) History of bilateral knee arthroplasty ?Z96.653 - Presence of artificial knee joint, bilateral (ICD-10) Family History Grandmother Family history of cancer Family history of stroke Father Family history of diabetes mellitus Family history of hypertension Mother Family history of diabetes mellitus Family history of hypertension Social History Within the past year, how often did you have a drink containing alcohol: 2-3 times a week Within the past year, how many standard drinks containing alcohol did you have on a typical day: 1 or 2 Within the past year, how often did you have six or more drinks on one occasion: less than monthly Total score: 1 Score interpretation: A score of 4 or more indicates drinking is likely to affect patient's safety. Smoking status: Never smoker Second hand tobacco smoke exposure: No Non-prescribed substance use: denies use Previous occupational history: [employer], truck sales manager Known occupational exposures/hazards: Yes Known occupational exposures/hazards details: chemical exposure Highest level of school completed/degree received: high school graduate Do you want help with school or training: No Are you now , , , , never or living with a partner: In a typical week, how many times do you talk on the telephone with family, friends, or neighbors: 3 or more times per week How often do you get together with friends or relatives: once per week How often do you attend bahai or baptism services: 4 or more times per year Do you belong to any clubs or organizations such as bahai groups unions, fraternal or athletic groups, or school groups: yes Total score: 4 Score interpretation: A score of greater than or equal to 2 indicates the lowest level of social isolation. Little interest or pleasure in doing things: not at all Feeling down, depressed, or hopeless: not at all Feel stressed/tense/nervous/anxious/difficulty sleeping: to some extent Due to disability, difficulty making decisions: No Do you think of yourself as: straight/heterosexual Gender Identity: male Exam Narrative Exam Narrative: Gen.: Awake, alert, in no distress Head: Normocephalic, atraumatic ENT: Moist mucous membranes Respiratory: No respiratory distress Extremities: Moves extremities equally, right calf is edematous with no noted erythema or open wounds. No red streaking. No warmth noted. DP pulse is palpable in the right foot. Psych: Normal mood and affect Neuro: No focal neuro deficit Skin: Warm, dry, intact Constitutional Vital Signs, click to edit/add: Last Vital Signs Temp 97.4 F L 09/22/23 20:03 Pulse 87 09/22/23 21:32 Resp 16 09/22/23 20:03 BP 140/87 09/22/23 21:32 Pulse Ox 96 09/22/23 21:32 O2 Del Method Room Air 09/22/23 20:03 Course Vital Signs Vital signs: Vital Signs Temperature 97.4 F L 09/22/23 20:03 Pulse Rate 93 H 09/22/23 20:03 Respiratory Rate 16 09/22/23 20:03 Blood Pressure 144/86 H 09/22/23 20:03 Pulse Oximetry 97 09/22/23 20:03 Oxygen Delivery Method Room Air 09/22/23 20:03 Temperature 97.4 F L 09/22/23 20:03 Pulse Rate 87 09/22/23 21:32 Respiratory Rate 16 09/22/23 20:03 Blood Pressure 140/87 09/22/23 21:32 Pulse Oximetry 96 09/22/23 21:32 Oxygen Delivery Method Room Air 09/22/23 20:03 MDM - Extremity (Nontraumatic) MDM Narrative Medical decision making narrative: Lab studies are unremarkable, patient with stable vital signs, no complaints of chest pain or shortness of breath. Ultrasound shows DVT in the right proximal femoral to right popliteal vein with associated superficial saphenous clot. Patient reevaluated by attending physician. He will be given a dose of Lovenox this evening and started on Eliquis for home. It is recommended he have close follow-up with PCP and return to the ER if symptoms change or worsen. Medical Records Attestation: I reviewed the patient's medical records. Lab Data Attestation: I reviewed the patient's lab results. Labs: Lab Results 09/22/23 Range/Units 20:30 WBC 9.5 (4.0-11.0) 10^3/uL RBC 4.55 L (4.70-6.10) 10^6/uL Hgb 14.0 (14.0-18.0) g/dL Hct 42.3 (42.0-54.0) % MCV 93.0 (80.0-94.0) fL MCH 30.8 (25.9-34.0) pg MCHC 33.1 (29.9-35.2) g/dL RDW 12.4 (11.0-15.0) % Plt Count 148 L (150-450) 10^3/uL MPV 10.1 (9.5-13.5) fL Neut % (Auto) 57.0 (43.0-75.0) % Lymph % (Auto) 31.5 (20.5-60.0) % [place] % (Auto) 7.8 (1.7-12.0) % Eos % (Auto) 2.7 (0.9-7.0) % Baso % (Auto) 0.4 (0.2-2.0) % Neut # (Auto) 5.4 (1.4-6.5) 10^3/uL Lymph # (Auto) 3.0 (1.2-3.8) 10^3/uL [place] # (Auto) 0.7 (0.3-0.8) 10^3/uL Eos # (Auto) 0.3 (0.0-0.7) 10^3/uL Baso # (Auto) 0.0 (0.0-0.1) 10^3/uL Abs Immat Gran (auto) 0.06 H (0.00-0.03) 10^3/uL Imm/Tot Granulo (auto) 0.6 H (0.0-0.5) % PT 10.7 (9.0-11.6) sec INR 1.01 Sodium 139 (136-145) mmol/L Potassium 4.1 (3.5-5.1) mmol/L Chloride 103 (98-107) mmol/L Carbon Dioxide 28.3 (21.0-32.0) mmol/L Anion Gap 11.8 BUN 20.0 H (7.0-18.0) mg/dL Creatinine 1.13 (0.70-1.30) mg/dL Est GFR ( Amer) >60 (>=60) Est GFR (Non-Af Amer) >60 (>=60) BUN/Creatinine Ratio 17.7 Glucose 107 H (74-106) mg/dL Lactate 1.4 (0.4-2.0) mmol/L Calcium 8.6 (8.5-10.1) mg/dL Total Bilirubin 0.6 (0.2-1.0) mg/dL AST 27 (15-37) U/L ALT 16 (16-63) U/L Alkaline Phosphatase 84 (46-116) U/L Total Protein 7.2 (6.4-8.2) g/dL Albumin 3.4 (3.4-5.0) g/dL Globulin 3.8 g/dL Albumin/Globulin Ratio 0.9 Imaging Data Venous US: Attestation: I have reviewed the pertinent imaging results. Radiologist's impression: DVT in the right proximal femoral vein extending to the right popliteal vein with superficial saphenous clot Discharge Plan Discharge Chief Complaint: Extremity Problem, Nontraumatic Clinical Impression: Deep vein thrombosis of lower extremity Patient Disposition: Home, Self-Care Time of Disposition Decision: 21:16 Condition: Good Prescriptions / Home Meds: New Eliquis 5 mg tablet See Rx Instructions .ROUTE .COMPLEX 28 Days Qty: 70 0RF Rx Instructions: 10 mg PO BID x 7 days, then 5 mg BID x 21 days No Action calcium 500 mg tablet Instructions: Deep Vein Thrombosis (ED), Blood Thinners (ED) Additional Instructions: Please follow up closely with your doctor Stand Alone Forms: Portal Instructions Referrals: MILLY ROCHA DO [Primary Care Provider] - 1 week Discharge Date/Time: 09/22/23 21:41
--- NOTE | 2023-09-22 20:16 | US_ITS ---
The [address] [address] Patient Name: RADHA TARIQ MRN: [id number] date: 1960 Sex: M Assigned Patient Location: ER Current Patient Location: Accession/Order Number: [id number] Exam Date: 09/22/2023 20:36 Report Date: 09/22/2023 21:42 At the request of: DIGNA MADDOX Procedure: US venous doppler LE RT US venous doppler LE RT, 09/22/2023 8:36 PM EST INDICATION: DVT COMPARISON: None available at the time of dictation. FINDINGS: Right lower extremity venous duplex. There is extensive deep venous thrombosis identified in the right lower extremity extending from the proximal femoral vein distally into the popliteal vein. There is no evidence of deep venous thrombosis within the posterior tibial, anterior tibial or peroneal veins in the calf. There is superficial venous thrombus identified in the proximal to mid small saphenous vein. US/US venous doppler LE RT IMPRESSION: 1. Deep venous thrombosis in the right lower extremity extending from the proximal femoral vein distally into the popliteal vein. 2. Superficial venous thrombosis in the proximal to mid small saphenous vein. Dr. Maddox, the ordering clinician, was notified by the certified performance technologist at the time of the examination. Electronically authenticated by: REBEKAH GILLIAM Date: 09/22/2023 21:42
[2023-09-22 20:20] VITALS: PULSE 93
[2023-09-22 20:37] LABS: Basophils Percent Auto 0.4 % (0.2-2.0); Eosinophils Absolute Auto 0.3 10^3/uL (0.0-0.7); Eosinophils Percent Auto 2.7 % (0.9-7.0); Hematocrit 42.3 % (42.0-54.0); Immature Granulocytes Abs Auto 0.06 10^3/uL (0.00-0.03); Immature Granulocytes Pct Auto 0.6 % (0.0-0.5); Lymphocytes Percent Auto 31.5 % (20.5-60.0); Mean Corpuscular HGB Conc 33.1 g/dL (29.9-35.2); Mean Corpuscular Hemoglobin 30.8 pg (25.9-34.0); Mean Platelet Volume 10.1 fL (9.5-13.5); Monocytes Absolute Auto 0.7 10^3/uL (0.3-0.8); Monocytes Percent Auto 7.8 % (1.7-12.0); Neutrophils Absolute Auto 5.4 10^3/uL (1.4-6.5); Platelet Count 148 10^3/uL (150-450); Red Blood Count 4.55 10^6/uL (4.70-6.10); Red Cell Distribution Width 12.4 % (11.0-15.0); White Blood Count 9.5 10^3/uL (4.0-11.0)
[2023-09-22 20:51] LABS: INR 1.01; Prothrombin Time 10.7 sec (9.0-11.6)
[2023-09-22 20:52] LABS: Alanine Aminotransferase 16 U/L (16-63); Albumin Globulin Ratio 0.9; Albumin Level 3.4 g/dL (3.4-5.0); Alkaline Phosphatase 84 U/L (46-116); Anion Gap 11.8; Aspartate Amino Transferase 27 U/L (15-37); BUN Creatinine Ratio 17.7; Bilirubin Total 0.6 mg/dL (0.2-1.0); Calcium 8.6 mg/dL (8.5-10.1); Carbon Dioxide 28.3 mmol/L (21.0-32.0); Chloride 103 mmol/L (98-107); Estimated GFR (African America >60 (>=60); Estimated GFR (Non-African Ame >60 (>=60); Globulin 3.8 g/dL; Glucose 107 mg/dL (74-106); Potassium 4.1 mmol/L (3.5-5.1); Sodium 139 mmol/L (136-145); Total Protein 7.2 g/dL (6.4-8.2)
[2023-09-22 20:54] LABS: Lactate/Lactic Acid 1.4 mmol/L (0.4-2.0)
[2023-09-22] MEDS: ENOXAPARIN SODIUM 120 MG/0.8 ML SYRINGE 110 MG SUBQ (21:29)
[2023-09-22 21:32] VITALS: BP 140/87; PULSE 87; O2SAT 96
== END 2023-09-22 21:41 | disposition home or self-care (01) ==
PROVIDERS: Physician Assistant; Emergency Provider Internal Medicine; PCP Family Medicine
DX: I82.411 Acute embolism and thrombosis of right femoral vein (principal); I82.431 Acute embolism and thrombosis of right popliteal vein; I82.811 Embolism and thrombosis of superficial veins of right lower extremity; S32.401D Unspecified fracture of right acetabulum, subsequent encounter for fracture with routine healing; Z96.653 Presence of artificial knee joint, bilateral; X58.XXXD Exposure to other specified factors, subsequent encounter
CPT/HCPCS: 36415; 80053; 83605; 85025; 85610; 93971; 99285

== ENCOUNTER 2023-10-19 08:02 | Outpatient (OUT) | payer OTHER, SELFPAY ==
--- NOTE | 2023-10-19 | XR_ITS ---
The [address] [address] Patient Name: RADHA TARIQ MRN: [id number] date: 1960 Sex: M Assigned Patient Location: RAD Current Patient Location: RAD Accession/Order Number: [id number] Exam Date: 10/19/2023 08:10 Report Date: 10/19/2023 09:30 At the request of: MARTIN VILLATORO Procedure: XR hip RT 1V w/ pelvis EXAM: XR hip RT 1V w/ pelvis HISTORY: RIGHT HIP F/U IMAGING COMPARISON: Right hip and pelvis study dated 08/31/2023 TECHNIQUE: Two-view right hip and AP view pelvis study was performed with 3 images obtained in total. FINDINGS: Previously noted right pelvic/acetabular fractures not convincingly demonstrated which may be related to interval healing. Correlate clinically. Follow-up as needed. Mild degenerative changes about the hip joints. Mild degenerative changes about the visualized lower lumbar spine. A few calcifications overlying the pelvis compatible with phleboliths. Soft tissues are grossly within normal limits. XR/XR hip RT 1V w/ pelvis IMPRESSION: Right hip and AP view pelvis study fails to demonstrate evidence of acute fracture or dislocation. Previously suggested fractures on the right not convincingly demonstrated which may be related to interval healing. Correlate clinically. Follow-up as needed. Electronically authenticated by: EDIL HORN Date: 10/19/2023 09:30
--- OUTSIDE RECORDS SUMMARY | 2023-10-19 08:06 | XMS_ITS | CCD ---
Author Name Unknown Address [address] [place] [address] Organization [facility] Care Team Providers Care Christmas Bell Ringer Name Role Phone SAROJ SANTAMARIA Unavailable Unavailable SAROJ SANTAMARIA Unavailable Unavailable ROCHA, PARKER Unavailable Unavailable FishNura Unavailable Unavailable ROCHA, PARKER Unavailable Unavailable GortyTimmy S Unavailable Unavailable STEPSAROJ MILLER Unavailable Unavailable STEPSAROJ MILLER Unavailable Unavailable Lopez Dorsey Unavailable Unavailable Tomás Evangelista Unavailable Unavailable STEPSAROJ MILLER Unavailable Unavailable Lopez Dorsey Unavailable Unavailable Jac Schumacher Admitting Unavailable Jac Schumacher Attending Unavailable Parker Rocha A Primary Care Unavailable REQUEST, NONE LISTED Admitting Unavaila ble REQUEST, NONE LISTED Attending Unavaila ble REQUEST, NONE LISTED Consulting Unavaila ble Jacey Carolina Unavailable JR. SANTAMARIA GEORGE C Attending Unavaila mari SANTAMARIA JR., GEORGE C Referring Unavaila ble Medications Current Medications Medication Drug Class(es) Dates Sig (Normalized) Sig (Original) methylPREDNISolone 4 mg oral tablet (1 source) Corticosteroid Start: 2 methylPREDNISolone 4 MG as directed Orally as directed for 6 days Oct, Active Problems Problem Classification Problem Date Documented Da te Episodic/Chronic Chronic obstructive pulmonary disease and bronchiectasis (1 source) Bronchitis, not specified as acute or chronic Onset: 10-13-2021 Resolved: 10-13-2021 Episodic Immunizations and screening for infectious disease (1 source) Contact with and (suspected) exposure to other viral communicable diseases Onset: 10-13-2021 Resolved: 10-13-2021 Episodic Results Test Name Value Interpretation Reference Range Facility COVID Quick Testingon 2021 Result Negative [employer] Other CT abdomen pelvis wo conon 0 12-22-2018 CT abdomen pelvis wo con [facility] [address] [place] [address] CT Scan Report Signed Patient: Radha Tariq MR#: [id number] : 1960 Acct:[id number] Age/Sex: 58 / M ADM Date: 12/21/18 Loc: ER Room: Type: [facility] ER Attending Dr: Ordering Provider: Jac Schumacher MD Date of Service: 12/21/18 CT/CT abdomen pelvis wo con: Abdominal Pain Copies to: Jac Schumacher MD CT ABDOMEN AND PELVIS WITHOUT CONTRAST COMPARISON: None CLINICAL DATA: Right lower quadrant pain with right testicular pain and swelling. Previous appendectomy. Spiral images were obtained through the abdomen and pelvis without contrast. This CT exam was performed using one or more following dose reduction techniques: Automated exposure control, adjustment of the mA and/or kV according to patient size, or use of iterative reconstruction technique. Limited cuts through the lung bases show minor dependent atelectasis. Evaluation of the intra-abdominal organs is slightly limited in the absence of contrast. The liver , gallbladder, spleen, pancreas and adrenal glands show no significant findings. There is minor bilateral perinephric fibrofatty stranding. There is a possible tiny right renal stone. No hydronephrosis is noted. There is a tiny exophytic hyperdense nodule at the anterior left kidney measuring 8 mm that may be a hemorrhagic cyst. No ureteral dilatation or stones are seen. The abdominal aorta is mildly tortuous. There are small retrocrural, retroperitoneal and mesenteric lymph nodes. There is no ascites. Small bowel loops are not dilated. There is mild stool along the colon as well as diffuse diverticulosis. Subtle levoscoliosis and mild degenerative changes are present within the spine. Images through the pelvis show no small bowel dilatation. The appendix is surgically absent. There is mild distal colonic stool and additional diverticulosis. The urinary bladder is unremarkable. The prostate is not enlarged and contains calcification. There are bilateral inguinal lymph nodes. There is a left external iliac lymph node with short axis dimension of 1 cm. There are mildly patulous inguinal rings containing fat, left larger than right. No free fluid is seen. The bony pelvis is intact. CT/CT abdomen pelvis wo con IMPRESSION: MODERATE DIVERTICULOSIS. POSSIBLE RIGHT NEPHROLITHIASIS AND LEFT HEMORRHAGIC CYST. NO OBSTRUCTIVE UROPATHY. NONSPECIFIC LYMPH NODES. NO ACUTE FINDINGS. Impression dictated by: Tamera Becerra M.D.12/22/2018 10:04 AM [id number] Transcribed By: [facility] 12/22/18 1004 Dictated By: Tamera Becerra MD 12/22/18 0923 Signed By: 12/22/18 1004 Normal [facility] Amylaseon 12-21-2018 Amylase enzyme act/vol 38 U/L Normal 28-100 [facility] Comment on above: Performed By: #### H EPATIC, NATALIE, LIPASE #### [address] Basic Metabolic Panelon 12-10 Calcium mass conc 8.8 mg/dL Normal 8.2-10.2 [facility] Comment on above: Performed By: #### C BC, BMP #### [address] Chloride molar conc 102 mmol/L Normal 95-114 [facility] Comment on above: Performed By: #### C BC, BMP #### [address] CO2 molar conc 23.5 mmol/L Normal 22.0-30.0 [facility] Comment on above: Performed By: #### C BC, BMP #### [address] Creatinine mass conc 115.1990071663 mg/dL Normal [facility] Comment on above: Result Comment: PERF ORMED BY: [place] [address] PATHOLOGIST PR[employer]ED CIRCUIT PHOTOGRAPHER HAROLDO LAGUNA M.D. Performed By: #### C BC, BMP #### [address] Creatinine mass conc 0.90 mg/dL Normal 0.64-1.27 [facility] Comment on above: Performed By: #### C BC, BMP #### [facility] [address] Estimated GFR ( Juanita > 60 Normal [facility] Comment on above: Result Comment: GFR estimated reference range: According to KDOQI guidelines, <60 ml/min/1.73m2 is sufficient to diagnose a patient with chronic kidney disease. Performed By: #### C BC, BMP #### [address] Estimated GFR (Non- Am > 60 Normal [facility] Comment on above: Performed By: #### C BC, BMP #### [address] Glucose mass conc 136 mg/dL High 70-100 [facility] Comment on above: Result Comment: [place] om Glucose Reference Range is dependent on time and content of last meal. Glucose of more than 200 mg/dL in a nonstressed, ambulatory subject supports the diagnosis of Diabetes Mellitus. ADA recommended reference range Performed By: #### C BC, BMP #### [address] Potassium molar conc 3.5 mmol/L Normal 3.5-5.1 [facility] Comment on above: Performed By: #### C BC, BMP #### [address] Sodium molar conc 136 mmol/L Normal 136-146 [facility] Comment on above: Performed By: #### C BC, BMP #### [place] [address] [place] Urea nitrogen mass conc 12 mg/dL Normal 9-23 [facility] Comment on above: Performed By: #### C BC, BMP #### [address] Complete Blood Count Auto Di ffon 12-21-2018 Basophils #/vol (Bld) 0.0 10*3/uL Normal 0.0-0.2 [facility] Comment on above: Result Comment: PERF ORMED BY: [place] [address] PATHOLOGIST PR[employer] CIRCUIT PHOTOGRAPHER JIANLAN SUN M.D. Performed By: #### C BC, BMP #### [facility] [address] Basophils/100 WBC (Bld) 0.1 % Normal . [facility] Comment on above: Performed By: #### C BC, BMP #### [facility] [address] Eosinophils #/vol (Bld) 0.0 10*3/uL Normal 0.0-0.45 [facility] Comment on above: Performed By: #### C BC, BMP #### [address] Eosinophils/100 WBC (Bld) 0.0 % Normal . [facility] Comment on above: Performed By: #### C BC, BMP #### [address] Erythrocyte distribution width Ratio (RBC) 15.0 % High 12.0-14.8 [facility] Comment on above: Performed By: #### C BC, BMP #### [address] Hematocrit Volume Fraction (Bld) 40.5 % Normal 38.8-50.0 [facility] Comment on above: Performed By: #### C BC, BMP #### [address] Hemoglobin mass conc (Bld) 13.0 g/dL Normal 13.0-17.0 [facility] Comment on above: Performed By: #### C BC, BMP #### [address] Lymphocytes #/vol (Bld) 0.7 10*3/uL Low 1.00-4.8 [facility] Comment on above: Performed By: #### C BC, BMP #### [address] Lymphocytes/100 WBC (Bld) 4.5 % Normal . [facility] Comment on above: Performed By: #### C BC, BMP #### [place] [id number] [place] MCH Entitic mass (RBC) 32.2 g/dL Low 32.5-35.6 [facility] Comment on above: Performed By: #### C BC, BMP #### [address] MCH Entitic mass (RBC) 29.2 pg Normal 27.5-35.2 [facility] Comment on above: Performed By: #### C BC, BMP #### [address] MCV Entitic volume (RBC) 90.6 fL Normal 83.5-101 [facility] Comment on above: Performed By: #### C BC, BMP #### [address] Monocytes #/vol (Bld) 0.9 10*3/uL High 0.0-0.8 [facility] Comment on above: Performed By: #### C BC, BMP #### [address] Monocytes/100 WBC (Bld) 5.9 % Normal . [facility] Comment on above: Performed By: #### C BC, BMP #### [address] Neutrophils #/vol (Bld) 13.1 10*3/uL High 1.8-7.7 [facility] Comment on above: Performed By: #### C BC, BMP #### [address] Neutrophils/100 WBC (Bld) 89.5 % Normal . [facility] Comment on above: Performed By: #### C BC, BMP #### [address] Nucleated RBC/100 WBC Ratio (Bld) 0.0 % Normal 0-0.5 [facility] Comment on above: Performed By: #### C BC, BMP #### [address] Platelet mean volume Entitic volume (Bld) 7.9 fL Normal 6.6-10.1 [facility] Comment on above: Performed By: #### C BC, BMP #### [facility] [address] [place] [address] Platelets #/vol (Bld) 170 10*3/uL Normal 150-450 [facility] Comment on above: Performed By: #### C BC, BMP #### [facility] [address] [place] [address] RBC #/vol (Bld) 4.47 10*6/uL Normal 3.90-5.60 [facility] Comment on above: Performed By: #### C BC, BMP #### [address] WBC #/vol (Bld) 14.7 10*3/uL High 4.5-11.0 [facility] Comment on above: Performed By: #### C BC BMP #### [address] Hepatic Panelon 12-21-2018 Albumin mass conc 4.0 g/dL Normal 3.2-5.5 [facility] Comment on above: Performed By: #### H EPATIC, NATALIE, LIPASE #### [address] Albumin/Globulin mass ratio 1.1 {ratio} Normal [facility] Comment on above: Performed By: #### H EPATIC, NATALIE, LIPASE #### [address] ALP enzyme act/vol 65 U/L Normal 32-92 [facility] Comment on above: Performed By: #### H EPATIC, NATALIE, LIPASE #### [address] ALT enzyme act/vol 17 U/L Normal 10-60 [facility] Comment on above: Performed By: #### H EPATIC, NATALIE, LIPASE #### [address] AST enzyme act/vol 22 U/L Normal 10-42 [facility] Comment on above: Performed By: #### H EPATIC, NATALIE, LIPASE #### [address] Bilirubin mass conc 0.6 mg/dL Normal 0.3-1.2 [facility] Comment on above: Performed By: #### H EPATIC, NATALIE, LIPASE #### [address] Bilirubin,Indirec t 0.5 mg/dL Normal [facility] Comment on above: Performed By: #### H EPATIC, NATALIE, LIPASE #### [address] Bilirubin.direct mass conc 0.1 mg/dL Normal 0.0-0.4 [facility] Comment on above: Performed By: #### H EPATIC, NATALIE, LIPASE #### [address] Globulin mass conc (S) 3.8 g/dL Normal [facility] Comment on above: Performed By: #### H EPATIC, NATALIE, LIPASE #### [address] Protein mass conc 7.8 g/dL Normal 6.1-7.9 [facility] Comment on above: Performed By: #### H EPATIC, NATALIE, LIPASE #### [address] Lipaseon 12-21-2018 Lipase enzyme act/vol 21.0 U/L Low 22-51 [facility] Comment on above: Result Comment: PERF ORMED BY: [place] [address] PATHOLOGIST PR[employer] CIRCUIT PHOTOGRAPHER HAROLDO LAGUNA M.D. Performed By: #### H EPATIC, NATALIE, LIPASE #### [address] Urinalysison 12-21-2018 Appearance Nom (U) Clear Normal Clear [facility] Comment on above: Order Comment: Name Collection Type: Clean-Voided Midstream Performed By: #### U A #### [facility] [address] [place] [address] [place] Bilirubin,Urine Negative Normal Negative [facility] Comment on above: Order Comment: Name Collection Type: Clean-Voided Midstream Performed By: #### U A #### [facility] [address] [place] [address] Color Nom (U) Yellow Normal Yellow [facility] Comment on above: Order Comment: Name Collection Type: Clean-Voided Midstream Performed By: #### U A #### [place] [address] [place] Glucose Ql (U) 250 mg/dL High Normal [facility] Comment on above: Order Comment: Name Collection Type: Clean-Voided Midstream Performed By: #### U A #### [address] Ketones Ql (U) 1+ High Negative [facility] Comment on above: Order Comment: Name Collection Type: Clean-Voided Midstream Performed By: #### U A #### [address] Leukocyte esterase Test strip Ql (U) Negative Normal Negative [facility] Comment on above: Order Comment: Name Collection Type: Clean-Voided Midstream Performed By: #### U A #### [place] [address] [place] Nitrite,Urine Negative Normal Negative [facility] Comment on above: Order Comment: Name Collection Type: Clean-Voided Midstream Performed By: #### U A #### [facility] [address] [place] [address] [place] Occult Blood,Urine Negative Normal Negative [facility] Comment on above: Order Comment: Name Collection Type: Clean-Voided Midstream Result Comment: PERF ORMED BY: [place] [address] PATHOLOGIST PR[employer]ED CIRCUIT PHOTOGRAPHER HAROLDO LAGUNA M.D. Performed By: #### U A #### [facility] [address] [place] [address] [place] pH (U) 6.0 [pH] Normal 5.0-9.0 [facility] Comment on above: Order Comment: Name Collection Type: Clean-Voided Midstream Performed By: #### U A #### [address] Protein mass conc (U) Negative Normal Negative [facility] Comment on above: Order Comment: Name Collection Type: Clean-Voided Midstream Performed By: #### U A #### [address] Specific[address] [place],Urine 1.022 Normal 1.001-1.030 [facility] Comment on above: Order Comment: Name Collection Type: Clean-Voided Midstream Performed By: #### U A #### [address] Urobilinogen,Urin e Normal Normal Normal [facility] Comment on above: Order Comment: Name Collection Type: Clean-Voided Midstream Performed By: #### U A #### [address] Provider Orderson 10-21-2018 Protein mass conc [id number]#[id number] [facility] Coding Summaryon 09-28-2018 Coding Summary CODING DATE: 018 [facility] STATUS: Home PAYOR: Commercial Insurance ADMIT DX: REASON FOR VISIT DX: M17.12 Unilateral primary osteoarthritis, left knee FINAL DX: PRINCIPAL: M17.12 Unilateral primary osteoarthritis, left knee SECONDARY: PROCEDURES DOCTOR NAME DATE 54900 Arthroplasty, knee, condyle and STEPANIC, SAROJ 09/17/2018 plateau; medial AND lateral compartments with or without patella resurfacing (total knee arthroplasty) LT Left side (used to identify procedures performed on the left side of the body) NOTE: The code number assigned matches the documented diagnosis and / or procedure in the patient's chart. However, the narrative phrase printed from the coding software may appear abbreviated, or result in slightly different terminology. Coded By: Jazmyne Teixeira Date Saved: 09/28/2018 07:34 am [facility] Lab - AP Resultson 8 Lab - AP Results [id number]#[id number] History and Physicalon 09-24 History and Physical [id number]#[id number] Sendout Teston Pathology Send Out. See Report [facility] Comment on above: Order Comment: LEFT KNEE BONE AND TISSUE Performed By: #### [id number], [id number] ####[facility] (DEFAULT)[address] [place] [address] Coding Summaryon 09-21-2018 Coding Summary CODING DATE: 018 [facility] STATUS: Home PAYOR: Commercial Insurance ADMIT DX: REASON FOR VISIT DX: M17.12 Unilateral primary osteoarthritis, left knee FINAL DX: PRINCIPAL: M17.12 Unilateral primary osteoarthritis, left knee SECONDARY: PROCEDURES DOCTOR NAME DATE 13601 Arthroplasty, knee, condyle and SAROJ SANTAMARIA plateau; medial AND lateral compartments with or without patella resurfacing (total knee arthroplasty) LT Left side (used to identify procedures performed on the left side of the body) NOTE: The code number assigned matches the documented diagnosis and / or procedure in the patient's chart. However, the narrative phrase printed from the coding software may appear abbreviated, or result in slightly different terminology. Revised Coded By: Jazmyne Teixeira Revised Date Saved: 09/21/2018 09:26 am [facility] MAGR Intraoperative Recordon 09-21-2018 MAGR Intraoperative Record MAGR Intra-Op Record Summary Primary Physician: SAROJ SANTAMARIA Finalized Date/Time: 09/21/18 14:05:16 Pt. Name: RADHA TARIQ/Sex: 1960 MALE Med Rec #: [id number] Physician: SAROJ SANTAMARIA Financial #: [id number] Pt. Type: O Room/Bed: 220/1 Admit/Disch: 09/17/18 07:40:24 - 09/18/18 13:07:00 Institution: Case Times MAGR Entry 1 Patient In Room Time 09/17/18 11:50:00 Out Room Time 09/17/18 15:31:00 Anesthesia Start Time 09/17/18 11:50:00 Stop Time 09/17/18 15:31:00 Surgery Start Time 09/17/18 12:45:00 Stop Time 09/17/18 15:24:00 Last Modified By: Jacey Taylor RN 09/17/18 15:45:21 Case Attendance MAGR Entry 1 Entry 2 Entry 3 Case Attendee SAROJ SANTAMARIA James D MD Ricci RN, Virginia Swain Role Performed Surgeon - Primary Anesthesiologist of [employer] Record Time In 09/17/18 11:50:00 09/17/18 11:50:00 09/17/18 11:50:00 Time Out 09/17/18 15:31:00 09/17/18 15:31:00 09/17/18 15:31:00 Procedure Arthroplasty Knee Arthroplasty Knee Arthroplasty Knee Total(Left) Total(Left) Total(Left) Last Modified By: Jacey Taylor RN, Stephanie RN Sauer, Stephanie RN 09/17/18 15:45:53 09/17/18 15:45:53 09/17/18 15:45:53 Entry 4 Entry 5 Entry 6 Case Attendee Jacey Taylor RN, Gowitzka, Liberty G Regina GATE AGENT/CSFA Role Performed [employer] Expediter Scrub Personnel Time In 09/17/18 11:50:00 09/17/18 11:50:00 09/17/18 11:50:00 Time Out 09/17/18 15:31:00 09/17/18 15:31:00 09/17/18 15:31:00 Procedure Arthroplasty Knee Arthroplasty Knee Arthroplasty Knee Total(Left) Total(Left) Total(Left) Last Modified By: Jacey Taylor RN, Stephanie RN Sauer, Stephanie RN 09/17/18 15:45:53 09/17/18 15:45:53 09/17/18 15:45:53 Entry 7 Case Attendee Jodi Anand GATE AGENT Role Performed Parts Expediter Time In 09/17/18 11:50:00 Time Out 09/17/18 15:31:00 Procedure Arthroplasty Knee Total(Left) Last Modified By: Jacey Taylor RN 09/17/18 15:45:53 General Comments: TREVA RUSSO & DELMA MAYORGA ELIDIA REPS Surgical Procedures MAGR Pre-Care Text: A.20 Verifies operative procedure, surgical site, and laterality Im.150 Develops individualized plan of care Entry 1 Procedure Arthroplasty Knee Total Primary Procedure Yes Primary Surgeon SAROJ SANTAMARIA Left Surgeon Comment LEFT TOTAL KNEE Start 09/17/18 12:45:00 ARTHROPLASTY Stop 09/17/18 15:24:00 Anesthesia Type General Surgical Service Orthopedics Wound Class Clean Last Modified By: Linn Patiño RN 09/21/18 14:05:09 Post-Care Text: O.730 The patient's care is consistent with the individualized perioperative plan of care General Case Data MAGR Pre-Care Text: A.350.1 Classifies surgical wound Entry 1 Case Information OR MAGR OR 01 Case Level Level 5 Wound Class Clean Specialty Orthopedics ASA Class 2 Diagnosis Preop Diagnosis DEGENERATIVE JOINT Postop Same As Preop Yes DISEASE Postop Diagnosis DEGENERATIVE JOINT DISEASE Last Modified By: Virginia Álvarez RN 09/17/18 12:56:09 Post-Care Text: O.760 Patient receives consistent and comparable care regardless of the setting Time Out MAGR Entry 1 Time out date/time 09/17/18 12:40:00 All team members Yes have introduced themselves by name and role Surgeon, Yes Surgeon reviews Yes anesthesia, nurse critical or confirm patient, unexpected steps, site, procedure operative duration, anticipated blood loss Anesthesia team Yes Nursing team Yes reviews any reviews sterility patient-specific (including concerns indicator results) and equipment issues/concerns Antibiotic Antibiotic Yes Administration Time 12:00 prophylaxis given within the last 60 minutes Is essential Yes imaging displayed? Last Modified By: Virginia Álvarez RN 09/17/18 12:56:47 Patient Positioning MAGR Pre-Care Text: A.280 Identifies baseline musculoskeletal status Im.40 Positions the patient Im.80 Applies safety devices Entry 1 Procedure Arthroplasty Knee Body Position Supine Total(Left) Left Arm Position Extended on padded arm Right Arm Position Extended on padded arm board board Left Leg Position Held on field Right Leg Position Extended Feet Uncrossed? Yes Press Points Checked Yes Positioning Device Arm Boards, Arm Strap, Outcome Met (O.80) Yes Pillow, Safety Strap Last Modified By: Virginia Álvarez RN 09/17/18 12:57:04 Post-Care Text: E.290 Evaluates musculoskeletal status O.80 Patient is free from signs and symptoms of injury related to positioning Skin Prep MAGR Pre-Care Text: A.30 Verifies allergies Im.270 Performs skin preparation Im.270.1 Implements protective measures to prevent skin and tissue injury due to chemical sources Entry 1 Skin Prep Syntegrity Prep Agents (Im.270) Chlorhexidine Gluconate Prep By Virginia Álvarez RN and Alcohol Prep Area (Im.270) Knee Prep Area Details Left Skin Prep Agent Dry Yes Without Pooling Hair Removal Syntegrity Hair Removal Methods No hair removal performed Outcome Met (O.100) Yes Last Modified By: Virginia Álvarez RN 09/17/18 12:57:27 Post-Care Text: E.10 Evaluates for signs and symptoms of physical injury to skin and tissue O.100 Patient is free from signs and symptoms of chemical injury Counts Verification MAGR Pre-Care Text: A.20 Verifies operative procedure, surgical site, and laterality A.20.2 Assesses the risk for unintended retained foreign body Im.20 Performs required counts Entry 1 Procedure Arthroplasty Knee Total(Left) Counts Verification Initial Counts Items included in Sponges, Sharps Initial Counts Manual the Initial Count Method Initial Counts Virginia Álvarez RN Initial Count Time 09/17/18 11:50:00 Performed By Ade Tsai Counts Verification Final Counts Items Included in Sponges, Sharps Final Count Method Manual Final Count Final Count Status Correct Final Counts Ade Tsai, Performed By Jacey Taylor RN Final Count Time 09/17/18 14:52:00 Surgeon notified of Yes final counts status Outcome Met (O.20) Yes Last Modified By: Jacey Taylor RN 09/17/18 14:52:10 Post-Care Text: E.50 Evaluates results of the surgical count O.20 Patient is free from unintended retained foreign objects Patient Care Devices MAGR Pre-Care Text: A.200 Assesses risk for normothermia regulation A.40 Verifies presence of prosthetics or corrective devices Im.280 Implements thermoregulation measures Im.60 Uses supplies and equipment within safe parameters Entry 1 Entry 2 Equipment Type FORCED WARM AIR UNIT INTERMITTENT COMPRESSION DEVICE Serial ?# [id number] Equipment Setting 43 DEGREES DEFAULT Last Modified By: Virginia Álvarez RN, RN, Jessica L 09/17/18 12:58:47 09/17/18 12:58:47 Post-Care Text: E.10 Evaluates signs and symptoms of physical injury to skin and tissue O.700 Patient is free from signs and symptoms of injury caused by extraneous objects Tourniquet MAGR Pre-Care Text: A.240 Assesses baseline skin condition Im.120 Implements protective measures to prevent skin or tissue injury due to mechanical sources Entry 1 Tourniquet Type TOURNIQUET Cuff Size 76 cm Serial Number [id number] Setting 350 mmHg Placement Leg upper Padding (Im.120) Yes Placement Details Left Tourniquet Times Inflated 09/17/18 12:41:00 Deflated 09/17/18 14:44:00 Total Time 123 Applied By SAROJ SANTAMARIA Removed By SAROJ SANTAMARIA Outcome Met (O.60) Yes Last Modified By: Jacey Taylor RN 09/17/18 14:51:42 Post-Care Text: E.10 Evaluates for signs and symptoms of physical injury to skin and tissue O.60 Patient is free from sign and symptoms of injury caused by extraneous objects Cautery MAGR Pre-Care Text: A.240 Assesses baseline skin condition A.40 Verifies presence of prosthetics or corrective devices Im.50 Implements protective measures to prevent injury due to electrical sources Entry 1 ESU Type Electrosurgical Unit Identification [id number] Number ESU Settings Syntegrity Cut Setting 75 Coag Setting 75 Grounding Pad Details Grounding Pad Yes Verified By Virginia Álvarez RN Needed? Grounding Pad Site Table Grounding Pad Within Expiration Yes Date? Outcome Met (O.10) Yes Last Modified By: Virginia Álvarez RN 09/17/18 13:00:10 Post-Care Text: E.10 Evaluates for signs and symptoms of physical injury to skin and tissue O.10 Patient is free from signs and symptoms of injury related to thermal sources Catheters, Drains & Tubes MAGR Pre-Care Text: A.310 Identifies factors associated with an increased risk for hemorrhage or fluid and electrolyte imbalance Im.250 Administers care to invasive device sites Entry 1 Device Description TRAY URINE METER MAGUIRE Location Bladder Present on Arrival? No Inserted By Jacey Taylor RN Inserted Date/Time 12/07/18 12:30:00 DC'd at End of Case? No Drainage Details Drainage? Yes Drainage System Dependent drainage bag Urinary Catheter Hand Hygiene Performed Outcome Met (O.60) Yes Checklist Before and After Insertion, Aseptic Technique and Sterile Equipment Used, Perineal Area Cleansed Before Insertion, Catheter Properly Secured, Collection Bag Positioned Below Bladder Last Modified By: Jacey Taylor RN 09/17/18 14:56:08 Post-Care Text: E.340 Evaluates tubes and drains are intact and functioning as planned O.60 Patient is free from signs and symptoms of injury caused by extraneous objects Cultures and Specimens MAGR Pre-Care Text: A.350 Assesses susceptibility for infection A.10 Confirms patient identity Im.320 Manages culture specimen collection Im.330 Manages specimen handling and disposition Entry 1 Cultures Ordered No Specimens Ordered Yes Outcome Met (O.40) Yes Last Modified By: Virginia Álvarez RN 09/17/18 13:00:18 Post-Care Text: E.40 Evaluates correct processes have been performed for specimen handling and disposition O.40 Patient's specimen(s) is managed in the appropriate manner Medication Administration MAGR Pre-Care Text: A.210 Identifies physiological status Im.220 Administers prescribed medications Entry 1 Entry 2 Time Administered 09/17/18 14:25:00 09/17/18 15:18:00 Medication NS 40ml, Epi 1:1,000 BACITRACIN 0.4ml, Ketorolac 30mg 1 ml, Ropivicaine 5mg/ml x 40 ml, Clonidine 1000mcg/ 10 ml x 0.8ml Route of Admin IA TOP Dose Volume 75 mL By SAROJ SANTAMARIA Regina GATE AGENT/CSFA Outcome Met (O.130) Yes Yes Last Modified By: Virginia Álvarez RN, Stephanie RN 09/17/18 14:37:13 09/17/18 15:21:41 Post-Care Text: E.20 Evaluates response to medications O.130 Patient receives appropriately administered medication(s) Implant Log MAGR Pre-Care Text: A.20 Verifies operative procedure, surgical site, and laterality Im.350 Records implants inserted during the operative or invasive procedure Entry 1 Entry 2 Entry 3 Procedure Arthroplasty Knee Arthroplasty Knee Arthroplasty Knee Total(Left) Total(Left) Total(Left) Implant Action Explant Explant Explant Implant Information Description ELIDIA QUAD SPARING ELIDIA SELF TAPPING ELIDIA SELF TAPPING SCREW BONE SCREW BONE SCREW Implant/Explant 09/17/18 13:14:00 09/17/18 13:14:00 09/17/18 13:14:00 Date/Time Implanted/Explanted SAROJ SANTAMARIA GEORGE STEPANIC, GEORGE By: Size 48MM 6.5X30MM 6.5X30MM Physical Therapy Director ELIDIA ELIDIA ELIDIA Catalog # Lot Number [id number] Expiration Date 04/10/28 07/11/28 08/11/28 Serial Number REF REF REF Device Identifier Human Readable ADEBAYO Machine Readable ADEBAYO MR Class Implant Usage Data Site Knee L Knee L Knee L Quantity 1 1 1 Reason for Explant Reason Not Retained Explant Disposition Education Trainer Sterility External Indicator Result Internal Indicator Results Outcome Met (O.30) Yes Yes Yes Last Modified By: Henri LAN, Virginia Álvarez RN, Virginia Angelo RN 09/17/18 13:23:07 09/17/18 14:30:33 09/17/18 13:23:07 Entry 4 Entry 5 Entry 6 Procedure Arthroplasty Knee Arthroplasty Knee Arthroplasty Knee Total(Left) Total(Left) Total(Left) Implant Action Explant Explant Implant Implant Information Description ELIDIA QUAD SPARING ELIDIA PATELLA REAMING ELIDIA NEXGEN ALL POLY SCREW SYSTEM PATELLA Implant/Explant 09/17/18 13:14:00 09/17/18 13:14:00 09/17/18 14:16:00 Date/Time Implanted/Explanted SAROJ SANTAMARIA GEORGE STEPANIC, GEORGE By: Size 48MM 32MM 32MM Physical Therapy Director ELIDIA ELIDIA ELIDIA Catalog # Lot Number [id number] Expiration Date 04/10/28 11/11/27 05/11/26 Serial Number REF REF REF Device Identifier Human Readable ADEBAYO Machine Readable ADEBAYO MR Class Implant Usage Data Site Knee L Knee L Knee L Quantity 1 1 1 Reason for Explant Reason Not Retained Explant Disposition Education Trainer Sterility External Indicator Result Internal Indicator Results Outcome Met (O.30) Yes Yes Yes Last Modified By: Henri LAN, Virginia Álvarez RN, Virginia Álvarez RN, Virginia Swain 09/17/18 13:23:07 09/17/18 13:23:07 09/17/18 13:23:07 Entry 7 Entry 8 Entry 9 Procedure Arthroplasty Knee Arthroplasty Knee Arthroplasty Knee Total(Left) Total(Left) Total(Left) Implant Action Implant Implant Implant Implant Information Description ELIDIA NEXGEN TIBIAL ELIDIA NEXGEN LPS-FLEX ELIDIA NEXGEN LPS-FLEX COMPONENT ARTICULAR SURFACE FEMORAL COMPONENT Implant/Explant 09/17/18 14:16:00 09/17/18 14:16:00 09/17/18 14:16:00 Date/Time Implanted/Explanted SAROJ SANTAMARIA, SAROJ HOUSE By: Size 6 E F 10MM HEIGHT F Physical Therapy Director ELIDIA ELIDIA ELIDIA Catalog # Lot Number [id number] Expiration Date 02/09/28 06/11/22 03/11/25 Serial Number REF REF REF Device Identifier Human Readable ADEBAYO Machine Readable ADEBAYO MR Class Implant Usage Data Site Knee L Knee L Knee L Quantity 1 1 1 Reason for Explant Reason Not Retained Explant Disposition Education Trainer Sterility External Indicator Result Internal Indicator Results Outcome Met (O.30) Yes Yes Yes Last Modified By: Henri LAN, Virginia Álvarez RN, Virginia Angelo RN 09/17/18 14:22:36 09/17/18 14:22:36 09/17/18 14:22:36 Entry 10 Procedure Arthroplasty Knee Total(Left) Implant Action Implant Implant Information Description ELIDIA PALACOS BONE CEMNET Implant/Explant 09/17/18 14:48:00 Date/Time Implanted/Explanted SAROJ SANTAMARIA By: Size Physical Therapy Director ELIDIA Catalog # Lot Number [id number] Expiration Date 12/09/22 Serial Number Device Identifier Human Readable ADEBAYO Machine Readable ADEBAYO MR Class Implant Usage Data Site Knee L Quantity 2 Reason for Explant Reason Not Retained Explant Disposition Education Trainer Sterility External Indicator Result Internal Indicator Results Outcome Met (O.30) Yes Last Modified By: Virginia Álvarez RN 09/17/18 14:22:36 Post-Care Text: E.30 Evaluates verification process for correct patient, site, side and level surgery O.30 Patient's procedure is performed on the correct site, side, and level Dressing/Packing MAGR Pre-Care Text: A.350 Assesses susceptibility for infection Im.290 Administer care to wound sites Entry 1 Skin Prep Agent Yes Site Knee Removed Prior to Dressing? Site Details Left Wound closure Primary Dressing Item Details Dressing Item 4x4's, ABD, Tape (Im.290) Elastic Sports Bandage (Im.290) Non-adhesive dressing Outcome Met Yes Last Modified By: Virginia Álvarez RN 09/17/18 13:01:42 Post-Care Text: E.200 Evaluates progress of wound healing O.200 Patient's wound perfusion is consistent with or improved from baseline levels Departure from OR MAGR Entry 1 Present on Depart Oxygen Via Bed Post-op Destination PACU Skin DFO Condition Dry Description Condition Intact Description Report Given To Vita Hamilton RN Airway Maintenance Patient Status Stable Oxygen in Use? Yes Airway Device Simple mask Flow Rate 15 L/min Last Modified By: Virginia Álvarez RN 09/17/18 13:02:02 Case Comments Finalized By: Linn Patiño RN Document Signatures Signed By: Linn Patiño RN 09/21/18 14:01 Linn Patiño RN 09/21/18 14:00 Jacey Taylor RN 09/17/18 15:47 Linn Patiño RN 09/21/18 14:05 Unfinalized History Date/Time Username Reason for Unfinalizing Freetext Reason for Unfinalizing 09/21/18 13:59 MOY Modify [facility] List 09/21/18 14:01 MHCYNDIONG Modify [facility] List 09/21/18 14:04 MHBLONG Modify [facility] Consent Formson 09-20-2018 Consent Forms [id number] 8 Telemetry Strips [id number]#1.00OT[facility] .Auto Diff 1on 09-18-2018 Auto Baso % 0.0 % Low 0.2-2.0 [facility] Comment on above: Performed By: #### 7 [id number], [id number], [id number], [id number] ####[facility] (DEFAULT)[address] [place] [address] Auto Roberts % 9 % Normal 1-12 [facility] Comment on above: Performed By: #### 7 [id number], [id number], 9094462, [id number] ####[facility] (DEFAULT)[address] [place] [address] Auto Neut % 80 % Normal 44-88 [facility] Comment on above: Performed By: #### 7 649229, [id number], [id number], [id number] ####[facility] (DEFAULT)[address] [place] [address] Baso Abs# 0.0 x10 Normal 0.0-0.2 [facility] Comment on above: Performed By: #### 7 136232, [id number], 3033529, [id number] ####[facility] (DEFAULT)[address] [place] [address] Eos Abs# 0.0 x10 Normal 0.0-0.4 [facility] Comment on above: Performed By: #### 7 608879, [id number], 2306429, [id number] ####[facility] (DEFAULT)[address] [place] [address] Eosinophils/100 WBC Auto (Bld) 0.1 % Low 0.9-4.0 [facility] Comment on above: Performed By: #### 7 252917, [id number], 1347620, [id number] ####[facility] (DEFAULT)[address] [place] [address] Lymphocytes Auto #/vol (Bld) 1.2 x10 Low 1.3-2.9 [facility] Comment on above: Performed By: #### 7 740479, [id number], 3143713, [id number] ####[facility] (DEFAULT)[address] [place] [address] Lymphocytes/100 WBC Auto (Bld) 11 % Low 14-48 [facility] Comment on above: Performed By: #### 7 348043, 16344496, 9491853, [id number] ####[facility] (DEFAULT)[address] [place] [address] Roberts Abs# 1.0 x10 High 0.0-0.8 [facility] Comment on above: Performed By: #### 7 725479, 87156924, 8185317, [id number] ####[facility] (DEFAULT)[address] [place] [address] Neut Abs# 8.8 x10 Normal 1.5-9.2 [facility] Comment on above: Performed By: #### 7 256841, 11338574, 2494749, [id number] ####[facility] (DEFAULT)[address] [place] [address] CBC w/ Auto Diffon 8 Erythrocyte distribution width Auto Ratio (RBC) 12.4 % Normal 11.5-15.0 [facility] Comment on above: Performed By: #### 7 436775, 40758999, 5469396, [id number] ####[facility] (DEFAULT)[address] [place] [address] Hematocrit Auto Volume Fraction (Bld) 38.5 % Normal 34.8-51.9 [facility] Comment on above: Performed By: #### 7 487702, 69305100, 6727250, [id number] ####[facility] (DEFAULT)[address] [place] [address] Hemoglobin mass conc (Bld) 13.1 g/dL Normal 11.8-17.7 [facility] Comment on above: Performed By: #### 7 865253, 69100739, 1736743, [id number] ####[facility] (DEFAULT)[address] [place] [address] Man Diff? Auto Normal [facility] Comment on above: Performed By: #### 7 791419, 59936489, 1714531, [id number] ####[facility] (DEFAULT)[address] [place] [address] MCH Auto Entitic mass (RBC) 31 pg Normal 24-34 [facility] Comment on above: Performed By: #### 7 616315, 54746871, 5757115, [id number] ####[facility] (DEFAULT)[address] [place] [address] MCHC Auto mass conc (RBC) 34 g/dL Normal 26-37 [facility] Comment on above: Performed By: #### 7 487873, 96068716, 4115116, [id number] ####[facility] (DEFAULT)[address] [place] [address] MCV Auto Entitic volume (RBC) 91 fL Normal 81-100 [facility] Comment on above: Performed By: #### 7 178062, 84965254, 2569371, [id number] ####[facility] (DEFAULT)[address] [place] [address] Platelet mean volume Auto Entitic volume (Bld) 9.4 fL Normal 6.3-10.2 [facility] Comment on above: Performed By: #### 7 610985, 50065065, 4839012, [id number] ####[facility] (DEFAULT)[address] [place] [address] Platelets Auto #/vol (Bld) 171 x10 Normal 138-427 [facility] Comment on above: Performed By: #### 7 864869, 22767728, 2962795, [id number] ####[facility] (DEFAULT)[address] [place] [address] RBC Auto #/vol (Bld) 4.25 x10 Normal 3.70-5.30 [facility] Comment on above: Performed By: #### 7 404712, 77089995, 9883717, [id number] ####[facility] (DEFAULT)[address] [place] [address] WBC Auto #/vol (Bld) 11.0 x10 Invalid Interpretation Code [facility] Comment on above: Performed By: #### 7 750605, 39602469, 6556107, [id number] ####[facility] (DEFAULT)[address] [place] [address] Education Noteon 09-18-2018 Education Note Education MaterialsP OST OPERATIVE TOTAL KNEE/HIP DISCHARGE INTRUCTIONSSURGEONS WRITTEN INSTRUCTIONS:Walk with walker; bear weight to tolerance on operative extremityElevate extremity 1 hour 3 times/day to control pain and swelling and apply cyrocuffRange of motion to ankle 10 times/hourRange of motion to knee hourlyChange dressing daily.Pravin hose (compression stockings) for 6 weeksPhysical therapy as prescribedMay shower, no tub bath. Do not rub/scrub incision. Wash gentlyTake Aspirin 325mg once daily to prevent blood clots, coated or uncoated per patient preference.Get up every 2 hours while awake and walk around house in a safe area for 1-2 minutesFlexion/extend knee over edge of bed 10?3 times a dayProceed immediately to the emergency department for chest pain or shortness of breath.Call my office during office hours if you have any questions [phone] after office hours, call [facility] [phone] and have them page Mehdi may take Motrin jpbi-agd-purtcue in addition to the Percocet to supplement pain controlWHAT YOU SHOULD KNOW AFTER YOUR OPERATION:If you need pain pills, start before the pain becomes intense. Pain pills are frequently less upsetting to your stomach if you take them with food such as crackers or bread.If you have excessive or persistent pain, swelling, bleeding, nausea, vomiting or any other problems, you should first call your surgeon for advice. If you are unable to contact your surgeon, seek help from the emergency room.FOR THE PREVENTION OF DVT AFTER LOWER EXTREMITY SURGERYWhat is a DVT?There is always the risk of DVT after lower extremity surgery. DVT, or deep vein thrombosis, is a blood blot in a major vein that may partially or completely block the flow of blood. The clot occurs in the legs or pelvis, in areas where blood flow is slow, or in an injured blood vessel. DVT can be life-threatening should pieces of the clot break away and travel to the lungs. This is called pulmonary embolismWhat are the symptoms of DVT?The area affected by the blood clot may become swollen and painful, and possibly turn red as the normal flow of blood is blocked. You may also develop edema, which is the build up of fluid in the skin tissues surrounding the clot. If the clot is somewhere other than your leg, there may be no physical signs of DVT. If the clot breaks away and travels to your lungs, you may experience shortness of breath and chest pain. If this occurs you should call your doctor immediately or go to the emergency room.How can I prevent DVT?You should keep active. Moving the ankle and foot and bending the knee as tolerated when you are in bed and walking as tolerated. Take medication, especially the Aspirin, as prescribed by your doctor.What should I do if I think I have a DVT?You should call your doctor or go to the emergency room any time you have a sudden and unusual shortness of breath that is not related to exercise, exertion or anxiety. If you have swelling with redness and pain in your leg, you should call your doctor immediately. If there is concern then a test called ?Venous Doppler? can be done to rule of a DVT. Normal [facility] Electrolyte Panel Standardon 09-18-2018 Anion gap 3 molar conc 13.0 mmol/L Normal 5.0-19.0 [facility] Comment on above: Performed By: #### 7 [id number], 18631178, 6801033, [id number] ####[facility] (DEFAULT)[address] [place] [address] Chloride molar conc 101 mmol/L Normal 101-111 [facility] Comment on above: Performed By: #### 7 938700, [id number], 3368593, [id number] ####[facility] (DEFAULT)[address] [place] [address] CO2 molar conc 26 mmol/L Normal 21-32 [facility] Comment on above: Performed By: #### 7 621861, 70830990, 9735732, [id number] ####[facility] (DEFAULT)[address] [place] [address] Potassium molar conc 4.2 mmol/L Normal 3.6-5.1 [facility] Comment on above: Performed By: #### 7 222216, 95391426, 3666065, [id number] ####[facility] (DEFAULT)[address] [place] [address] Sodium molar conc 136.0 mmol/L Normal 136.0-144.0 [facility] Comment on above: Performed By: #### 7 957616, 71249150, 5097865, [id number] ####[facility] (DEFAULT)[address] [place] [address] Inpatient Patient Summaryon 09-18-2018 Inpatient Patient Summary [facility] [place] [address] patient Discharge InstructionsName: RADHA TARIQ GDOB: [birth year] [address]: [address] [place] [address] Care Provider:Name: PARKER ROCHAPhone: After you are discharged if you find you have any questions, please, call [phone] ext [phone] to speak to a nurse.Discharge Diagnosis: Status post left knee replacementIf you received any narcotics, sedation, or any other medication that causes drowsiness for the next 24 hours, unless otherwise directed:? Do not drive a car.? Do not operate machinery such as power tools, lawn mowers, drills, sewing machines, or stoves? Avoid alcoholic beverages and drugs for allergies, nerves, or sleep? Do not make important personal or business decisions or sign any legal documentsOhiohealth [facility]heastern [facility] would like to thank you for allowing us to assist you with your healthcare needs. The following includes patient education materials and information regarding your injury/illness.RADHA TARIQ Benny has been given the following list of follow-up instructions, prescriptions, and patient education materials:Follow-up InstructionsWith: Address: When:Jacob Tolentino [address] [place] [address], [address] [place], [place] [address] Business (1) 10/01/2018 10:00 AMWith: Address: When:PARKER ROCHA [address] [place] [id number] Business (1)MedicationsDuring the course of your visit, your medication list was updated with the most current information. The details of those changes are reflected below:Medications to Continue That Have Not ChangedPrinted Prescriptionsacetaminophen- oxycodone (Percocet 5/325 oral tablet) 1 tab(s) Oral every 6 hours as needed for pain. Refills: 0.Other Medicationsferrous sulfate 1 tab(s) Oral every day.No Longer Take the Following Medicationsascorbic acid (Vitamin C 500 mg oral tablet) 1 tab(s) Oral every day.naproxen (Aleve 220 mg oral tablet) 1 cap(s) Oral every day as needed as needed for pain.It is important to always keep an active list of medications available so that you can share with other providers and manage your medications appropriately. As an additional courtesy, we are also providing you with your final active medications list that you can keep with you.acetaminophen-oxycodone (Percocet 5/325 oral tablet) 1 tab(s) Oral every 6 hours as needed for pain. Refills: 0.ferrous sulfate 1 tab(s) Oral every day.Take only the medications listed above. Contact your doctor prior to taking any medications not on this list.Medication leaflets, if any, will display belowDiet & ActivityPatient Activity Level: As ToleratedPatient Diet: RegularPatient Activity Restrictions: Discontinue Alcohol Use, No driving, No Heavy Lifting Over 50lbsPatient education materials, if any, will display belowPOST OPERATIVE TOTAL KNEE/HIP DISCHARGE INTRUCTIONSSURGEONS WRITTEN INSTRUCTIONS:Walk with walker; bear weight to tolerance on operative extremityElevate extremity 1 hour 3 times/day to control pain and swelling and apply cyrocuffRange of motion to ankle 10 times/hourRange of motion to knee hourlyChange dressing daily.Pravin hose (compression stockings) for 6 weeksPhysical therapy as prescribedMay shower, no tub bath. Do not rub/scrub incision. Wash gentlyTake Aspirin 325mg once daily to prevent blood clots, coated or uncoated per patient preference.Get up every 2 hours while awake and walk around house in a safe area for 1-2 minutesFlexion/extend knee over edge of bed 10?3 times a dayProceed immediately to the emergency department for chest pain or shortness of breath.Call my office during office hours if you have any questions [phone] after office hours, call [facility] [phone] and have them page You may take Motrin alam-cah-bzjoaqj in addition to the Percocet to supplement pain controlWHAT YOU SHOULD KNOW AFTER YOUR OPERATION:If you need pain pills, start before the pain becomes intense. Pain pills are frequently less upsetting to your stomach if you take them with food such as crackers or bread.If you have excessive or persistent pain, swelling, bleeding, nausea, vomiting or any other problems, you should first call your surgeon for advice. If you are unable to contact your surgeon, seek help from the emergency room.FOR THE PREVENTION OF DVT AFTER LOWER EXTREMITY SURGERYWhat is a DVT?There is always the risk of DVT after lower extremity surgery. DVT, or deep vein thrombosis, is a blood blot in a major vein that may partially or completely block the flow of blood. The clot occurs in the legs or pelvis, in areas where blood flow is slow, or in an injured blood vessel. DVT can be life-threatening should pieces of the clot break away and travel to the lungs. This is called pulmonary embolismWhat are the symptoms of DVT?The area affected by the blood clot may become swollen and painful, and possibly turn red as the normal flow of blood is blocked. You may also develop edema, which is the build up of fluid in the skin tissues surrounding the clot. If the clot is somewhere other than your leg, there may be no physical signs of DVT. If the clot breaks away and travels to your lungs, you may experience shortness of breath and chest pain. If this occurs you should call your doctor immediately or go to the emergency room.How can I prevent DVT?You should keep active. Moving the ankle and foot and bending the knee as tolerated when you are in bed and walking as tolerated. Take medication, especially the Aspirin, as prescribed by your doctor.What should I do if I think I have a DVT?You should call your doctor or go to the emergency room any time you have a sudden and unusual shortness of breath that is not related to exercise, exertion or anxiety. If you have swelling with redness and pain in your leg, you should call your doctor immediately. If there is concern then a test called ?Venous Doppler? can be done to rule of a DVT.Viruses or BacteriaWhat?s got you sick?Antibiotics only treat bacterial infections. Viral illnesses cannot be treated with antibiotics. When an antibiotic is not prescribed, ask your healthcare professional for tips on how to relieve symptoms and feel better. Usual CauseIllness Viruses Bacteria Antibiotic NeededCold/Runny Nose NOBronchitis/Chest Cold (in otherwise healthy children and adults) NOWhooping Cough YesFlu NOStrep Throat YesSore Throat (except strep) NOFluid in the middle ear (otitis media with effusion) NOUrinary Tract Infection YesAntibiotics Aren?t Always the Answerwww.cdc.gov/getsmart GETSMARTKnow When Antibiotics [place]ureen.[place] Department of Health and Human ServicesCenters for Disease Control and Prevention June 2014 [facility] Pharmacy Noteon 09-18-2018 Pharmacy Note This patient being discharged was counseled on their medications. I reviewed uses and possible side effects. I discussed the importance of compliance and left our contact information as well as a blank personal medication record for home use. All questions were answered.Take home points to remember include: Care of constipation and pain control[Electronically Signed on: 09/18/2018 15:47 EST] Amilcar Abbasi RPh[Verified on: 09/18/2018 15:47 EST] Amilcar Abbasi RPh [facility] Progress Note - Nurseon Protein mass conc Dressing change comp lete to left knee. Old dressing contained a small amt. of dry brown drainage. No bruising or redness noted to incision. Incision well approximated. [place] intact. Pt. able to stand to walker and sit to chair with stand by assist only. Pt. steady with ambulation. Pt. reports pain tolerable to left knee. Circ checks WNL. Polar care, foot pumps, and pravin hose in place.[Electronically Signed on: 09/18/2018 15:24 EST] Jamar Dolan RN[Verified on: 09/18/2018 15:24 EST] Jamar Dolan RN [facility] Anesthesia Noteon 09-17-2018 Anesthesia Note Patient: BRANDAN TARIQ : 58 years Sex: MALE : 64Associated Diagnoses: NoneAuthor: Nura Edmond MDPreoperative InformationAnesthesia history: Patient history: No history of anesthesia complications. Family history: No family history of anesthesia complications.Review of SystemsRespiratory: Negative, No shortness of breath, No cough.Cardiovascular: Negative, No chest pain.Gastrointestinal: Negative.All other systems are negativeHealth StatusAllergies:Allergic Reactions (All)No known allergiesCurrent medications:Home Medications (2) Activeferrous sulfate 1 tab(s), PO, DailyPercocet 5/325 oral tablet 1 tab(s), PRN, PO, q6hr (int)Problem list (past medical history):All ProblemsArthritis / SNOMED CT 2553282 / ConfirmedChronic knee pain / SNOMED CT 16210398 / ConfirmedHistoriesFamily History:Heart diseaseFatherCHF (congestive heart failure)FatherDiabetesFathe rProcedure history:Arthroscopy of knee ([id number]) in 1999 at 40 Years.Comments:08/26/2018 13:12 - Frances Russo RNright knee08/26/2018 13:11 - Frances Russo RNtorn acl and meniscusAppendectomy ([id number]).Comments:2017 13:10 - Frances Russo RN1990sArthroscopy of knee ([id number]).Comments:2017 13:11 - Frances Russo RNtorn meniscus on leftSocial History Alcohol Assessment Use: Current. Beer, Wine, Liquor, Daily, 1 drinks/episode average. Substance Abuse Assessment Substance use: Never. Employment/School Assessment Employed Home/Environment Assessment Lives with Spouse. Living situation: Home/Independent. Nutrition/Health Assessment Regular, Caffeine intake amount: 2 cups daily..Social & Psychosocial JlwmkgXhjtctm02/15/2018 Alcohol Use: Current Type: Beer, Liquor, Wine Frequency: Daily Average drinks per episode in last year: 1Employment/Uybhap53 8 Status: EmployedHome/Pqwqealortt96/ 15/2018 Lives with: Spouse Living situation: Home/IndependentNutrition/H ealth110/26/2017 Type of diet: Regular Caffeine intake amount: 2 cups dailySubstance Abuse08/26/2018 Substance use: Never.Physical ExaminationVS/MeasurementsV ital Signs (last 24 hrs) Last Charted Heart Rate Peripheral 79 bpm (SEP 17 08:00)Resp Rate 16 br/min (SEP 17 08:)SBP 117 mmHg (SEP 17:40)DBP 74 mmHg (SEP 17:40)SpO2 97 % (SEP 17:40)Airway: Mallampati classification: II (soft palate, fauces, uvula visible). Mouth: Adequate opening, Teeth ( Within normal limits ). Neck: decreased neck ROM.Respiratory: Lungs are clear to auscultation.Cardiovascular : Normal rate, Regular rhythm, No murmur, No edema.Review / ManagementLaboratory ResultsPlanAmerican Society of Anesthesiologists#(ASA) physical status classification: Class II.Anesthetic Preoperative PlanAnesthesia: Combined technique (Spinal, adductor canal block). Anesthetic plan, risks, benefits, and alternatives discussed with the patient and/or family. Patient verbalized understanding. Consent was signed by the patient.[Electronically Signed on: 09/17/2018 13:08 EST] Nura Edmond MD[Verified on: 09/17/2018 13:08 EST] Nura Edmond MD [facility] MAGR Intraoperative Recordon 09-17-2018 MAGR Intraoperative Record MAGR Intra-Op Record Summary Primary Physician: Finalized Date/Time: 09/17/18 12:07:10 Pt. Name: RADHA TARIQ D.O.B./Sex: 1960 MALE Med Rec #: [id number] Physician: SAROJ SANTAMARIA Financial #: [id number] Pt. Type: D Room/Bed: 220/1 Admit/Disch: 09/17/18 07:40:24 - Institution: Case Times MAGR Entry 1 Patient In Room Time 09/17/18 11:30:00 Out Room Time 09/17/18 11:40:00 Anesthesia Start Time 09/17/18 11:32:00 Stop Time 09/17/18 11:39:00 Surgery Start Time 09/17/18 11:32:00 Stop Time 09/17/18 11:39:00 Last Modified By: Kaila Barrera RN 09/17/18 12:03:48 Case Attendance MAGR Entry 1 Entry 2 Case Attendee Nura Edmond MD, Ruth RN Role Performed Anesthesiologist of Punch Machine Hand Record Time In 09/17/18 11:30:00 09/17/18 11:30:00 Time Out 09/17/18 11:40:00 09/17/18 11:40:00 Procedure Adductor Canal Adductor Canal Block(Left) Block(Left) Last Modified By: Kaila Barrera RN 09/17/18 Kaila Barrera RN 09/17/18 12:06:21 12:06:21 Surgical Procedures MAGR Pre-Care Text: A.20 Verifies operative procedure, surgical site, and laterality Im.150 Develops individualized plan of care Entry 1 Procedure Adductor Canal Block Primary Procedure Yes Primary Surgeon Sid Allen MD Modifiers Left Surgeon Comment ADDUCTOR CANAL BLOCK Start 09/17/18 11:32:00 PRIOR TO LEFT TOTAL KNEE ARTHROPLASTY Stop 09/17/18 11:39:00 Anesthesia Type Regional Block Surgical Service Anesthesia Wound Class Clean Last Modified By: Kaila Barrera RN 09/17/18 12:04:30 Post-Care Text: O.730 The patient's care is consistent with the individualized perioperative plan of care General Case Data MAGR Pre-Care Text: A.350.1 Classifies surgical wound Entry 1 Case Information OR MAGR Proc Room Case Level None Wound Class Clean Specialty Anesthesia ASA Class 2 Diagnosis Preop Diagnosis ADDUCTOR CANAL BLOCK Postop Same As Preop Yes PRIOR TO LEFT TOTAL KNEE ARTHROPLASTY Postop Diagnosis ADDUCTOR CANAL BLOCK PRIOR TO LEFT TOTAL KNEE ARTHROPLASTY Last Modified By: Kaila Barrera RN 09/17/18 12:04:43 Post-Care Text: O.760 Patient receives consistent and comparable care regardless of the setting Time Out MAGR Entry 1 Time out date/time 09/17/18 11:31:00 All team members Yes have introduced themselves by name and role Surgeon, Yes Surgeon reviews Yes anesthesia, nurse critical or confirm patient, unexpected steps, site, procedure operative duration, anticipated blood loss Anesthesia team Yes Nursing team Yes reviews any reviews sterility patient-specific (including concerns indicator results) and equipment issues/concerns Antibiotic Antibiotic N/A prophylaxis given within the last 60 minutes Last Modified By: Kaila Barrera RN 09/17/18 12:05:03 Patient Positioning MAGR Pre-Care Text: A.280 Identifies baseline musculoskeletal status Im.40 Positions the patient Im.80 Applies safety devices Entry 1 Procedure Adductor Canal Body Position Supine Block(Left) Left Arm Position Resting at Side Right Arm Position Resting at Side Left Leg Position Extended Right Leg Position Extended Feet Uncrossed? Yes Press Points Checked Yes Outcome Met (O.80) Yes Last Modified By: Kaila Barrera RN 09/17/18 12:05:13 Post-Care Text: E.290 Evaluates musculoskeletal status O.80 Patient is free from signs and symptoms of injury related to positioning Skin Prep MAGR Pre-Care Text: A.30 Verifies allergies Im.270 Performs skin preparation Im.270.1 Implements protective measures to prevent skin and tissue injury due to chemical sources Entry 1 Skin Prep Syntegrity Prep Agents (Im.270) Chlorhexidine Gluconate Prep By Nura Edmond MD and Alcohol Prep Area (Im.270) Thigh Prep Area Details Left Skin Prep Agent Dry Yes Without Pooling Hair Removal Syntegrity Hair Removal Methods No hair removal performed Outcome Met (O.100) Yes Last Modified By: Kaila Barrera RN 09/17/18 12:05:32 Post-Care Text: E.10 Evaluates for signs and symptoms of physical injury to skin and tissue O.100 Patient is free from signs and symptoms of chemical injury Departure from OR MAGR Entry 1 Present on Depart N/A Via Stretcher Post-op Destination [place] Skin DFO Condition Warm Description Condition Dry Description Report Given To Jacey Taylor RN Airway Maintenance Patient Status Stable Oxygen in Use? Yes Airway Device Nasal cannula Flow Rate 3 L/min Last Modified By: Kaila Barrera RN 09/17/18 12:06:16 General Comments: Patient taken to OR 2 Case Comments Finalized By: Kaila Barrera RN Document Signatures Signed By: Kaila Barrera RN 09/17/18 12:07 [facility] PACU Record MAGR PACU Record [facility] Primary Physician: SAROJ SANTAMARIA Finalized Date/Time: 09/17/18 16:45:45 Pt. Name: RADHA TARIQ/Sex: 1960 MALE Med Rec #: [id number] Physician: SAROJ SANTAMARIA Financial #: [id number] Pt. Type: D Room/Bed: 220/1 Admit/Disch: 09/17/18 07:40:24 - Institution: PACU Case Times MAGR Entry 1 In PACU I 09/17/18 15:30:00 Ready for PACU I 09/17/18 16:30:00 Discharge Discharge from PACU 09/17/18 16:30:00 I Last Modified By: Vita Hamilton RN 09/17/18 16:45:41 General Comments: Discharge to nursing unit per Dr Edmond using discharge criteria. Finalized By: Vita Hamilton RN Document Signatures Signed By: Vita Hamilton RN 09/17/18 16:45 [facility] [place] [place] MAGR Pre-Op Record Summary Primary Physician: SAROJ SANTAMARIA Finalized Date/Time: 09/17/18 12:08:48 Pt. Name: RADHA TARIQ/Sex: 1960 MALE Med Rec #: [id number] Physician: SAROJ SANTAMARIA Financial #: [id number] Pt. Type: D Room/Bed: 220/1 Admit/Disch: 09/17/18 07:40:24 - Institution: Pre-Op Case Times MAGR Pre-Care Text: Patient will be optimally prepared for surgery. Patient is free from s/s of injury. Provide information to patient/family related to plan of care. Verify patient allergies. Confirm identity and verify consent before the operative or invasive procedure. Entry 1 Patient Arrival Time 09/17/18 08:00:00 Preop Departure 09/17/18 11:40:00 Last Modified By: Kaila Barrera RN 09/17/18 12:08:46 Post-Care Text: Patient is prepared mentally and physically and is ready for surgery. The patient remains free from s/s of injury. Patient/family express understanding of plan of care and participate in decisions affecting his or her perioperrative plan of care. Allergies documented appropriately. Patient identifiers and consent correct. General Comments: Patient arrived ambulatory. Pt denies SOB, chest pain, flu like symptoms, sleep apnea, or pacemaker. Finalized By: Kaila Barrera RN Document Signatures Signed By: Kaila Barrera RN 09/17/18 12:08 [facility] Nutrition Noteon 09-17-2018 Protein mass conc 58 year old male adm . for Surgery for L Total Knee Arthroplasty. No recent wt. changes identified, nor problems chewing/swallowing or GI issues. Pt. is at low nutritional risk currently and normal events are to adv diet as tolerated and may have a nutritional supplement to boost calories/pro for wound healing. Continue to follow. [facility] Progress Note - Nurseon Protein mass conc Arrived in room 220 from surgery. Awake et talking, pain free. Drsg. dry et intact on left knee, aidee wrap. Polar care to Left knee also. Toes are pink et warm, pulses 2+. Indwelling urinary catheter patent. Urine cloudy yellow. Pt reports pain level at 2-3. Taking food et liquids without nausea. Dr. Santamaria visited, Repeat X-ray of knee, drsg. reapplied per Dr. Santamaria. Pt. resting quietly in semi-ken's position.[Electronically Signed on: 09/17/2018 19:30 EST] Lyla Varela RN[Verified on: 09/17/2018 19:30 EST] Lyla Varela RN [facility] UA w Culture if Ind Standard on 09-17-2018 Breakpoint UA Normal [facility] Comment on above: Order Comment: MAGUIRE INSERT Performed By: #### 7 [id number], [id number], [id number], [id number] ####[facility] (DEFAULT)[address] [place] [address] 92255 Color Nom (U) YELLOW Invalid Interpretation Code [facility] Comment on above: Order Comment: MAGUIRE INSERT Performed By: #### 7 [id number], [id number], [id number], [id number] ####[facility] (DEFAULT)[address] [place] [address] 35548 Culture? Not Indicated Invalid Interpretation Code [facility] Comment on above: Order Comment: MAGUIRE INSERT Performed By: #### 7 [id number], [id number], [id number], [id number] ####[facility] (DEFAULT)[address] [place] [address] 11163 Glucose mass conc (U) Negative Invalid Interpretation Code [facility] Comment on above: Order Comment: MAGUIRE INSERT Performed By: #### 7 [id number], [id number], [id number], [id number] ####[facility] (DEFAULT)[address] [place] [address] 19290 Ketones Ql (U) Negative Invalid Interpretation Code [facility] Comment on above: Order Comment: MAGUIRE INSERT Performed By: #### 7 [id number], [id number], [id number], [id number] ####[facility] (DEFAULT)[address] [place] [address] 42803 Micro? Not Indicated Invalid Interpretation Code [facility] Comment on above: Order Comment: MAGUIRE INSERT Performed By: #### 7 [id number], [id number], [id number], [id number] ####[facility] (DEFAULT)[address] [place] [address] 29729 UA Bilirubin Negative Normal [facility] Comment on above: Order Comment: MAGUIRE INSERT Performed By: #### 7 [id number], [id number], [id number], [id number] ####[facility] (DEFAULT)[address] [place] [address] 28078 UA Blood Negative Normal NEGATIVE [facility] Comment on above: Order Comment: MGAUIRE INSERT Performed By: #### 7 [id number], [id number], [id number], [id number] ####[facility] (DEFAULT)[address] [place] [address] UA Clarity CLEAR Normal CLEAR [facility] Comment on above: Order Comment: MAGUIRE INSERT Performed By: #### 7 [id number], [id number], [id number], [id number] ####[facility] (DEFAULT)[address] [place] [address] UA Leuk Est Negative Normal NEGATIVE [facility] Comment on above: Order Comment: MAGUIRE INSERT Performed By: #### 7 [id number], [id number], [id number], [id number] ####[facility] (DEFAULT)[address] [place] [address] UA Nitrite Negative Normal NEGATIVE [facility] Comment on above: Order Comment: MAGUIRE INSERT Performed By: #### 7 [id number], [id number], [id number], [id number] ####[facility] (DEFAULT)[address] [place] [address] UA pH 5.5 Invalid Interpretation Code 5-8 [facility] Comment on above: Order Comment: MAGUIRE INSERT Performed By: #### 7 [id number], [id number], [id number], [id number] ####[facility] (DEFAULT)[address] [place] [address] UA Protein Negative Normal NEGATIVE [facility] Comment on above: Order Comment: MAGUIRE INSERT Performed By: #### 7 [id number], [id number], [id number], [id number] ####[facility] (DEFAULT)[address] [place] [address] 56094 UA Spec Grav >=1.030 Invalid Interpretation Code 1.001-1.035 [facility] Comment on above: Order Comment: MAGUIRE INSERT Performed By: #### 7 [id number], [id number], [id number], [id number] ####[facility] (DEFAULT)[address] [place] [address] 44862 UA Urobilinogen 0.2 mg/dL Normal 0.2-1.0 [facility] Comment on above: Order Comment: MAGUIRE INSERT Performed By: #### 7 150104, [id number], [id number], [id number] ####[facility] (DEFAULT)[address] [place] [address] Urine Source Maguire Catheter [facility] Comment on above: Order Comment: MAGUIRE INSERT Performed By: #### 7 [id number], [id number], [id number], [id number] ####[facility] (DEFAULT)[address] [place] [address] XR Knee One or Two Views [place]ef ton 09-17-2018 XR Knee One or Two Views Left KNEE ONE OR TWO VIEWS LEFTCLINICAL DATA: Left knee arthroplasty today, opacity overlying theposteromedial soft tissue noted previously.AP and lateral views of the left knee were obtained and compared to the priorexam performed earlier on 09/17/2018. Previously noted opacity within theposteromedial soft tissue is no longer identified. This may have beenoutside the patient, correlate clinically. There are prosthetic devicesabout the distal femur and proximal tibia in satisfactory position andalignment. Postoperative change about the posterior patellar region appearsunremarkable. There is soft tissue swelling and air noted primarilyanteriorly compatible with recent surgery. Postoperative mary kay are notedanteriorly. Previously noted overlying opacity is no longer identifiedcompatible with interval removal.IMPRESSION: UNREMARKABLE POST ARTHROPLASTY APPEARANCE OF THE LEFT KNEE.SHAN Canas #: [id number]: 09/18/2018T: 09/18/2018 Final Dictated by: Varinder Ureña MD SDictated DT/TM: 09/18/18 6:14Signed (Electronic Signature): Varinder Ureña MD 09/18/18 7:58 amTechnologist: RASHID [facility] XR Knee One or Two Views Left KNEE ONE OR TWO VIEWS LEFTCLINICAL DATA: Chronic left knee pain.AP and lateral views of the left knee were obtained with portable techniqueat 1602 hours and compared to the prior exam dated 08/26/2018. There areprosthetic devices about the distal femur and proximal tibia in satisfactoryposition and alignment. Postoperative change about the posterior patellarregion appears unremarkable. There is soft tissue swelling anteriorly withoverlying gauze like density with postoperative mary kay. There is opacitynoted posteriorly, medially within the soft tissue likely representing smalldrain, correlate clinically.IMPRESSION: UNREMARKABLE POST ARTHROPLASTY APPEARANCE OF THE LEFT KNEE.SHAN Canas #: [id number]: 09/17/2018T: 09/17/2018 Final Dictated by: Varinder Ureña MD SDictated DT/TM: 09/17/18 4:34Signed (Electronic Signature): Varinder Ureña MD S 09/17/18 4:54 pmTechnologist: [facility] ABORhon 09-16-2018 ABO and Rh group Nom (Bld) Hx Check: Not Found Anti-A: 4+ Anti-B: 0 Anti-D: 4+ DCon: NT A1: 0 B: 2+ ABORh Interp: A POS Invalid Interpretation Code [facility] Comment on above: Performed By: #### 7 [id number], [id number], [id number], [id number] ####[facility] (DEFAULT)[address] [place] [address] ABORh Retypeon 09-16-2018 ABO and Rh group Nom (Bld) Ordered by Discern. Anti-A: 4+ Anti-B: 0 Anti-D: 4+ DCon: NT A1: 0 B: 2+ ABORh Retype: A POS Invalid Interpretation Code [facility] Comment on above: Performed By: #### 7 [id number], [id number], [id number], [id number] ####[facility] (DEFAULT)[address] [place] [address] ABSC Gelon 09-16-2018 ABSC Gel Negative [facility] Comment on above: Performed By: #### 7 [id number], [id number], [id number], [id number] ####[facility] (DEFAULT)[address] [place] [address] Blood Bank IDon 09-16-2018 Blood Bank ID BBID: [id number] Invalid Interpretation Code [facility] Comment on above: Performed By: #### 7 [id number], [id number], [id number], [id number] ####[facility] (DEFAULT)[address] [place] [address] Hgbon 09-16-2018 Hemoglobin mass conc (Bld) 15.0 g/dL Normal 11.8-17.7 [facility] Comment on above: Performed By: #### 2 [id number] ####[facility] (DEFAULT)[address] [place] [address] 43164 Progress Note - Nurseon Protein mass conc Spoke with pt and in formed him to be here at 8am and NPO after MN, he verbalizes understanding.[Electronical ly Signed on: 09/16/2018 09:29 EST] Yajaira Ellsworth RN[Verified on: 09/16/2018 09:29 EST] Yajaira Ellsworth RN [facility] Coding Summaryon 09-03-2018 Coding Summary CODING DATE: [facility] STATUS: Home PAYOR: Commercial Insurance APC DESCRIPTION 5521 Level 1 Imaging without Contrast ADMIT DX: REASON FOR VISIT DX: Z01.818 Encounter for other preprocedural examination FINAL DX: PRINCIPAL: Z01.818 Encounter for other preprocedural examination SECONDARY: M25.462 Effusion, left knee PYMT PROC APC STAT DESCRIPTION DOCTOR NAME DATE NOTE: The code number assigned matches the documented diagnosis and / or procedure in the patient's chart. However, the narrative phrase printed from the coding software may appear abbreviated, or result in slightly different terminology. Revised Coded By: Yessica Tang Revised Date Saved: 08/30/2018 08:56 am [facility] Progress Note - Nurseon 08-[address] Salgado reviews ch art and pat results for surgery on 09/17/18. No orders received.[Electronically Signed on: 08/31/2018 12:57 EST] Frances Russo RN[Verified on: 08/31/2018 12:57 EST] Frances Russo RN Normal [facility] .Auto Diff 1on 08-26-2018 Auto Baso % 0.3 % Normal 0.2-2.0 [facility] Comment on above: Performed By: #### 7 [id number], [id number], [id number], [id number] ####[facility] (DEFAULT)[address] [place] [address] Auto Roberts % 9 % Normal 1-12 [facility] Comment on above: Performed By: #### 7 [id number], [id number], [id number], [id number] ####[facility] (DEFAULT)[address] [place] [address] Auto Neut % 51 % Normal 44-88 [facility] Comment on above: Performed By: #### 7 854496, [id number], 3390750, [id number] ####[facility] (DEFAULT)[address] [place] [address] Baso Abs# 0.0 x10 Normal 0.0-0.2 [facility] Comment on above: Performed By: #### 7 068751, [id number], 8544800, [id number] ####[facility] (DEFAULT)[address] [place] [address] Eos Abs# 0.2 x10 Normal 0.0-0.4 [facility] Comment on above: Performed By: #### 7 932461, 17498932, 8257976, [id number] ####[facility] (DEFAULT)[address] [place] [address] Eosinophils/100 WBC Auto (Bld) 2.4 % Normal 0.9-4.0 [facility] Comment on above: Performed By: #### 7 212407, 79073295, 3849956, [id number] ####[facility] (DEFAULT)[address] [place] [address] Lymphocytes Auto #/vol (Bld) 2.9 x10 Normal 1.3-2.9 [facility] Comment on above: Performed By: #### 7 276300, 56609765, 3180701, [id number] ####[facility] (DEFAULT)[address] [place] [address] Lymphocytes/100 WBC Auto (Bld) 37 % Normal 14-48 [facility] Comment on above: Performed By: #### 7 424760, 71635957, 1695136, [id number] ####[facility] (DEFAULT)[address] [place] [address] Roberts Abs# 0.7 x10 Normal 0.0-0.8 [facility] Comment on above: Performed By: #### 7 286465, 54780594, 2715372, [id number] ####[facility] (DEFAULT)[address] [place] [address] Neut Abs# 4.0 x10 Normal 1.5-9.2 [facility] Comment on above: Performed By: #### 7 535534, 16328377, 8616382, [id number] ####[facility] (DEFAULT)[address] [place] [address] CBC w/ Auto Diffon 8 Erythrocyte distribution width Auto Ratio (RBC) 12.6 % Normal 11.5-15.0 [facility] Comment on above: Performed By: #### 7 889795, 12160509, 0519238, [id number] ####[facility] (DEFAULT)[address] [place] [address] Hematocrit Auto Volume Fraction (Bld) 44.7 % Normal 34.8-51.9 [facility] Comment on above: Performed By: #### 7 727292, 05889256, 5493497, [id number] ####[facility] (DEFAULT)[address] [place] [address] Hemoglobin mass conc (Bld) 15.0 g/dL Normal 11.8-17.7 [facility] Comment on above: Performed By: #### 7 077728, 40514049, 5394256, [id number] ####[facility] (DEFAULT)[address] [place] [address] Man Diff? Auto Normal [facility] Comment on above: Performed By: #### 7 094528, 39109649, 0179906, [id number] ####[facility] (DEFAULT)[address] [place] [address] MCH Auto Entitic mass (RBC) 30 pg Normal 24-34 [facility] Comment on above: Performed By: #### 7 337810, 19642027, 6796042, [id number] ####[facility] (DEFAULT)[address] [place] [address] MCHC Auto mass conc (RBC) 34 g/dL Normal 26-37 [facility] Comment on above: Performed By: #### 7 957754, 83702350, 2590939, [id number] ####[facility] (DEFAULT)[address] [place] [address] MCV Auto Entitic volume (RBC) 91 fL Normal 81-100 [facility] Comment on above: Performed By: #### 7 193741, 80846696, 2876056, [id number] ####[facility] (DEFAULT)[address] [place] [address] Platelet mean volume Auto Entitic volume (Bld) 10.0 fL Normal 6.3-10.2 [facility] Comment on above: Performed By: #### 7 895374, 73716558, 7286330, [id number] ####[facility] (DEFAULT)[address] [place] [address] Platelets Auto #/vol (Bld) 174 x10 Normal 138-427 [facility] Comment on above: Performed By: #### 7 296591, 19475874, 2608451, [id number] ####[facility] (DEFAULT)[address] [place] [address] RBC Auto #/vol (Bld) 4.93 x10 Normal 3.70-5.30 [facility] Comment on above: Performed By: #### 7 695384, 22300106, 1400072, [id number] ####[facility] (DEFAULT)[address] [place] [address] 07905 WBC Auto #/vol (Bld) 7.8 x10 Normal 3.5-10.5 [facility] Comment on above: Performed By: #### 7 197289, 18390675, 2297932, [id number] ####[facility] (DEFAULT)[address] [place] [address] CMP Standardon 08-26-2018 eGFR Non AA >60 Invalid Interpretation Code [facility] Comment on above: Performed By: #### 7 783429, 36465188, 0731086, [id number] ####[facility] (DEFAULT)[address] [place] [address] eGFR AA >60 Invalid Interpretation Code [facility] Comment on above: Result Comment: [employer]fter leila Kidney disease could be indicated at eGFRs of less than 60 ml/min/1.73m2. Kidney Failure is indicated at less than 15 ml/min/1.73m2 Performed By: #### 7 654072, 44868020, 4551382, [id number] ####[facility] (DEFAULT)[address] [place] [address] 73754 Albumin mass conc 4.2 g/dL Normal 3.5-5.0 [facility] Comment on above: Performed By: #### 7 251398, 65447570, 0845189, [id number] ####[facility] (DEFAULT)[address] [place] [address] 99527 Albumin/Globulin mass ratio 1.4 {ratio} Normal 1.4-2.6 [facility] Comment on above: Performed By: #### 7 303438, 49142228, 0541223, [id number] ####[facility] (DEFAULT)[address] [place] [address] 35675 Alk Phos 56 IU/L Normal 32-91 [facility] Comment on above: Performed By: #### 7 796255, 00774671, 8282552, [id number] ####[facility] (DEFAULT)[address] [place] [address] 14949 ALT/SGPT 28.0 IU/L Normal 17.0-63.0 [facility] Comment on above: Performed By: #### 7 910774, 42242537, 7965739, [id number] ####[facility] (DEFAULT)[address] [place] [address] Anion gap 3 molar conc 12.0 mmol/L Normal 5.0-19.0 [facility] Comment on above: Performed By: #### 7 882505, 97030035, 5291388, [id number] ####[facility] (DEFAULT)[address] [place] [address] AST/SGOT 22 IU/L Normal 15-41 [facility] Comment on above: Performed By: #### 7 770783, 41781638, 2153298, [id number] ####[facility] (DEFAULT)[address] [place] [address] 75664 Bili Total 1.1 mg/dL Normal 0.3-1.2 [facility] Comment on above: Performed By: #### 7 223788, 70148847, 9485987, 7125102731 ####[facility] (DEFAULT)[address] [place] [address] 86725 Calcium mass conc 8.5 mg/dL Low 8.9-10.3 [facility] Comment on above: Performed By: #### 7 023100, 81151955, 4216810, [id number] ####[facility] (DEFAULT)[address] [place] [address] 59525 Chloride molar conc 105 mmol/L Normal 101-111 [facility] Comment on above: Performed By: #### 7 766425, 27323984, 8417895, [id number] ####[facility] (DEFAULT)[address] [place] [address] 13296 CO2 molar conc 25 mmol/L Normal 21-32 [facility] Comment on above: Performed By: #### 7 463130, 43362266, 3443587, [id number] ####[facility] (DEFAULT)[address] [place] [address] 58889 Creatinine mass conc 0.82 mg/dL Low 0.90-1.30 [facility] Comment on above: Performed By: #### 7 103544, 00704557, 1771598, [id number] ####[facility] (DEFAULT)[address] [place] [address] 36207 Globulin Calculated mass conc (S) 3.1 g/dL Normal 1.5-4.3 [facility] Comment on above: Performed By: #### 7 417613, 87515169, 8260266, [id number] ####[facility] (DEFAULT)[address] [place] [address] 61320 Glucose mass conc 85.0 mg/dL Normal 74.0-118.0 [facility] Comment on above: Performed By: #### 7 160182, 67012274, 2768651, [id number] ####[facility] (DEFAULT)[address] [place] [address] 01059 Osmolality 279 mOsm/L Invalid Interpretation Code [facility] Comment on above: Performed By: #### 7 019148, 07453831, 7734684, [id number] ####[facility] (DEFAULT)[address] [place] [address] 78464 Potassium molar conc 3.7 mmol/L Normal 3.6-5.1 [facility] Comment on above: Performed By: #### 7 301180, 63627982, 5178285, 2702644344 ####[facility] (DEFAULT)[address] [place] [address] 28323 Protein mass conc 7.3 g/dL Normal 6.5-8.1 [facility] Comment on above: Performed By: #### 7 287767, 15832636, 6356767, [id number] ####[facility] (DEFAULT)[address] [place] [address] 11915 Sodium molar conc 138.0 mmol/L Normal 136.0-144.0 [facility] Comment on above: Performed By: #### 7 529868, 23816771, 0660523, [id number] ####[facility] (DEFAULT)[address] [place] [address] Urea nitrogen mass conc 23 mg/dL Normal 8-26 [facility] Comment on above: Performed By: #### 7 791876, 49999815, 4594007, [id number] ####[facility] (DEFAULT)[address] [place] [address] Urea nitrogen/Creatini ne mass ratio 28.0 mg/mg High 4.6-16.2 [facility] Comment on above: Performed By: #### 7 416385, 66485441, 1143694, [id number] ####[facility] (DEFAULT)[address] [place] [address] PT/PTTon 08-26-2018 aPTT Coag time (Bld) 27 second(s) Normal 25-35 [facility] Comment on above: Performed By: #### 7 729152, 33651418, 9438694, [id number] ####[facility] (DEFAULT)[address] [place] [address] INR Coag RelTime (PPP) 1.03 {INR} Normal 0.91-1.11 [facility] Comment on above: Performed By: #### 7 997143, 73794306, 9170938, [id number] ####[facility] (DEFAULT)[address] [place] [address] 74738 Prothrombin time (PT) Coag time (PPP) 10.8 second(s) Normal 9.7-11.8 [facility] Comment on above: Performed By: #### 7 561619, 29177516, 9130284, [id number] ####[facility] (DEFAULT)[address] [place] [address] UA Standardon 08-26-2018 Breakpoint UA Normal [facility] Comment on above: Performed By: #### 1 [id number] ####[facility] (DEFAULT)[address] [place], [place] [address] Color Nom (U) YELLOW Invalid Interpretation Code [facility] Comment on above: Performed By: #### 1 [id number] ####[facility] (DEFAULT)[address] [place] [address] 24325 Glucose mass conc (U) Negative Invalid Interpretation Code [facility] Comment on above: Performed By: #### 1 [id number] ####[facility] (DEFAULT)[address] [place] [address] 29970 Ketones Ql (U) TRACE Invalid Interpretation Code [facility] Comment on above: Performed By: #### 1 [id number] ####[facility] (DEFAULT)[address] [place] [address] 37289 UA Bilirubin Negative Normal [facility] Comment on above: Performed By: #### 1 [id number] ####[facility] (DEFAULT)[address] [place] [address] 92882 UA Blood Negative Normal NEGATIVE [facility] Comment on above: Performed By: #### 1 [id number] ####[facility] (DEFAULT)[address] [place] [address] 51809 UA Clarity CLEAR Normal CLEAR [facility] Comment on above: Performed By: #### 1 [id number] ####[facility] (DEFAULT)[address] [place] [address] 48908 UA Leuk Est Negative Normal NEGATIVE [facility] Comment on above: Performed By: #### 1 [id number] ####[facility] (DEFAULT)[address] [place] [address] 77970 UA Nitrite Negative Normal NEGATIVE [facility] Comment on above: Performed By: #### 1 [id number] ####[facility] (DEFAULT)[address] [place] [address] 27061 UA pH 5.5 Invalid Interpretation Code 5-8 [facility] Comment on above: Performed By: #### 1 [id number] ####[facility] (DEFAULT)[address] [place] [address] 30078 UA Protein Negative Normal NEGATIVE [facility] Comment on above: Performed By: #### 1 [id number] ####[facility] (DEFAULT)[address] [place] [address] UA Spec Grav >=1.030 Invalid Interpretation Code 1.001-1.035 [facility] Comment on above: Performed By: #### 1 [id number] ####[facility] (DEFAULT)[address] [place] [address] UA Urobilinogen 0.2 mg/dL Normal 0.2-1.0 [facility] Comment on above: Performed By: #### 1 [id number] ####[facility] (DEFAULT)[address] [place] [address] Urine Source Clean Catch Normal [facility] Comment on above: Performed By: #### 1 [id number] ####[facility] (DEFAULT)[address] [place] [address] XR Chest 2 Viewson 8 XR Chest 2 Views ADDENDUM:CHEST 2 VIEWSCLINICAL DATA: Required preoperative chest clearance prior to left kneearthroplasty.PA and lateral views of the chest were obtained. Heart and mediastinalcontours are unremarkable in appearance. No acute infiltrate orconsolidations are seen. The bony structures are grossly intact. There aremild degenerative changes about the visualized upper lumbar spine.IMPRESSION: NO ACUTE PROCESS SEEN IN THE CHEST.Varinder Ureña MDJOB #: [id number]: 09/16/2018T: 09/16/2018 Final Dictated by: Varinder Ureña MD SDictated DT/TM: 09/16/18 1:55Signed (Electronic Signature): Varinder Ureña MD 09/16/18 2:01 pmTechnologist: [facility] ONE OR TWO VIEWS LEFT AND CHEST TWO VIEWSCLINICAL DATA: Chronic left knee pain, required preoperative chest clearanceprior to left knee arthroplastyStanding AP and lateral views of the left knee were obtained. There ismoderate to marked medial compartment narrowing with mild sclerosis of theadjacent bony structures medially. There is mild to moderate medial and mildlateral spurring. There is mild hypertrophic degenerative change of thedistal femur anteriorly. There is moderate posterior patellar spurring withpatellofemoral narrowing. There is mild to moderate spurring about theintercondylar notch of the distal femur. Small suprapatellar joint effusionis seen. There is mild prepatellar soft tissue swelling.IMPRESSION:1. LEFT KNEE STUDY DEMONSTRATES DEGENERATIVE CHANGES DESCRIBED.2. SMALL SUPRAPATELLAR JOINT EFFUSION SUGGESTED.3. FOLLOW-UP NEEDED.SHAN Canas #: [id number]: 08/26/2018T: 08/26/2018 Final Dictated by: Varinder Ureña MD SDictated DT/TM: 08/26/18 2:53Signed (Electronic Signature): Varinder Ureña MD S 08/27/18 5:33 amTechnologist: [facility] Vital Signs Date Time Vital Sign Value Performing Clinician Facility 10-13-2021 14:00-0500 Body height 182.88 cm Jacey Jensenault Other [facility] Other 10-13-2021 14:00-0500 Body mass index (BMI) [Ratio] 33.22 kg/m2 Jacey Caity Other [facility] Other 10-13-2021 14:00-0500 Body temperature 97.6 [degF] Jacey Jensenault Other [facility] Other 10-13-2021 14:00-0500 Body weight 111.13 kg Jacey Caity Other [facility] Other 10-13-2021 14:00-0500 Respiratory rate 18 /min Jacey Jensenault Other [facility] Other 10-13-2021 14:00-0500 SaO2% (BldA) [Mass fraction] 96 % Jacey Caity Other [facility] Other Encounters Encounter Date Encounter Type Care Provider Facility Start: 08-31-2023 End: 09-01-2023 ambulatory JRBarbara, SAROJ TEJEDAANIC Not Available Start: 10-13-2021 End: 10-13-2021 ambulatory Jacey Caity Other [facility] Other Start: 10-13-2021 Office outpatient visit 15 minutes Jacey Jensenault [facility] Start: 12-31-2020 End: 05-17-[address] NONE LISTED REQUEST Facility: Start: 12-21-2018 End: 12-22-2018 Emergency department patient visit Jac Schumacher Facility:[facility] Start: 09-18-2018 End: 09-18-2018 [facility] Start: 08-27-2018 End: 08-27-2018 Patient encounter procedure [facility] Facility:[facility] Payers Date Payer Category Payer Private Health Insurance [id number] 2018 Private Health Insurance [id number] 2018 Self-pay [employer] 2018 Unknown [id number] 1960 Unknown [id number] 2.16.84 [id number]. 1962 Unknown [id number] 2.16.84 [id number] 1962 Unknown [id number] 2.16.84 [id number] 1962 Unknown [id number] 2.16.840 .[id number] 1962 Unknown [id number] 2.16.840 .[id number] 1962 Unknown [id number] 2.16.840 .[id number] 1959 Self-pay Unknown [id number] 2.16.840 .[id number] Unknown [id number] 2.16.84 [id number] Unknown [id number] 2.16 .[id number] Social History Date Type Detail Facility Unknown if ever smoked [facility] Other Sex Assigned At Sex Assigned At Bir th [facility] Other Evaluation note 10-13-2021 Note Date & Type Note Facility 10-13-2021 Evaluation note Encounter Date Diagnosis Assessment Notes Oct, Contact with and (suspected) exposure to other viral communicable diseases (ICD-10 - Z20.828) Even though COVID RAPID test is NEGATIVE, I am highly suspicious at this time you may be positive due to the symptoms. Recommend patient follow Quarantine guidelines until you follow up with PCP.. Recommend OTC medication such as Mucinex, Sea salt nasal spray, Cepecol, Tylenol, Zyrtec, as they can help with symptoms VIRAL URI HANDOUT GIVEN TO PATIENT THAT RECOMMENDS OTC MEDICATIONS, FOLLOW UP AND WHEN TO SEEK EMERGENCY TREATMENT Oct, Bronchitis (ICD-10 - J40) Sent over steroid pack to help with inflammation in lungs since it is just starting hopefully this will prevent symtpoms from worsening Oct, Other Additional time spent conducting pre-visit phone call, screening for symptoms, instructions on social distancing, application and removal of PPE, and cleaning of examination room, equipment and supplies was preformed. Patient education given for testing methodology and results. Patient care instructions given in writting by [facility] At Home document. [facility] Other History general Narrative - Reported Note Date & Type Note Facility History general Narrative - Reported Type Surgical History knee replacement x2 [facility] Other Summary Purpose Family History No Family History Records FoundNo Family History Records FoundNo Family History Records FoundNo Family History Records Found Advance Directives No Advanced Directives Records FoundNo Advanced Directives Records FoundNo Advanced Directives Records FoundNo Advanced Directives Records Found Hospital Course Note [facility]OUTHCl inical Discharge SummaryPERSON INFORMATIONName RADHA TARIQ Age 58 Years 64Sex MALE Language Cymro PCP Андрей ROCHA [facility]# Arrival 09/17/18 07:40:24Visit Reason SURGERY - LEFT TOTAL KNEE ARTHROPLASTY Acuity LOSAddress:[address] [address]Bcpujok:PROVIDER INFORMATIONVITALS INFORMATIONVital Sign Triage LatestTemp Oral 36.5 DegC 36.5 DegCTemp Temporal 36.6 DegC 37.1 DegCTemp IntravascularTemp AxillaryTemp [id number] Sat 94 % 97 %Respiratory Rate 16 br/min 16 br/minPeripheral Pulse Rate 68 bpm 66 bpmApical Heart Rate 72 bpm 72 bpmBlood Pressure 142 mmHg / 90 mmHg 132 mmHg / 81 mmHgComment:MEDICAL INFORMATIONAllergy Info:Allergies No known allergiesPrescriptions Given:Prescription Displayacetaminophen-oxycodone (Percocet 5/325 oral tablet) 1 tab(s), PO, q6hr (int), PRN: for pain, # 28 tab(s), 0 Refill(s), 09/25/18Home Meds Displayferrous sulfate 1 tab (more content not included)... Note Patient: RADHA TARIQ MR N: : 58 years Sex: MALE : 64Associated Diagnoses: NoneAuthor: Nura Edmond MDPostoperative InformationPost Operative Note: Post Anesthesia Care Unit.AssessmentAnesthetic outcomeNo anesthetic complications noted.AwakePain controlledVSSNausea controlledRespiratory non-labored.[Electronically Signed on: 09/17/2018 16:31 EST] Nura Edmond MD[Verified on: 09/17/2018 16:31 EST] Nura Edmond MD Procedure Findings Note Patient: RADHA TARIQ MR N: 16 : 58 years Sex: MALE : 64Associated Diagnoses: NoneAuthor: Nura Edmond MDPostoperative InformationPost Operative Note: Post Anesthesia Care Unit.AssessmentAnesthetic outcomeNo anesthetic complications noted.AwakePain controlledVSSNausea controlledRespiratory non-labored.[Electronically Signed on: 09/17/2018 16:31 EST] Nura Edmond MD[Verified on: 09/17/2018 16:31 EST] Nura Edmond MD Additional Source Comments (unrecognized sect ion and content) No Status Records FoundNo Status Records FoundNo Status Records FoundNo Status Records Found INFORMATION SOURCE (unrecogn ized section and content) DATE CREATED AUTHOR 10/22/2018 [facility] DATE CREATED AUTHOR AUTHOR'S ORGANIZ ATION 12/23/2018 [facility] DATE CREATED AUTHOR AUTHOR'S ORGANIZ ATION [facility]20[facility] DATE CREATED AUTHOR AUTHOR'S ORGANIZ ATION 09/05/2023 [facility] REASON FOR VISIT (unrecogniz ed section and content) #[address] [employer] - cough , congestion, sore throat, COVID Provider Visit FOR RECORDS PERTAINING TO PATIENTS WHO ARE OR HAVE BEEN ENROLLED IN A CHEMICAL DEPENDENCY/SUBSTANCEABUSE PROGRAM, SOME INFORMATION MAY BE OMITTED. This clinical summary was aggregated from multiple sources. Caution should be exercised in using it in the provision of clinical care. This summary normalizes information from multiple sources, and as a consequence, information in this document may materially change the coding, format and clinical context of patient data. In addition, data may be omitted in some cases. CLINICAL DECISIONS SHOULD BE BASED ON THE PRIMARY CLINICAL RECORDS. [employer] provides no warranty or guarantee of the accuracy or completeness of information in this document.
== END 2023-10-19 08:03 | disposition home or self-care (01) ==
LOC: RAD 08:02
PROVIDERS: PCP Family Medicine; Visit Provider Orthopaedic Surgery
DX: S32.491D Other specified fracture of right acetabulum, subsequent encounter for fracture with routine healing (principal)
CPT/HCPCS: 73501

== ENCOUNTER 2023-11-18 15:37 | Emergency (ER) | payer OTHER, SELFPAY ==
[2023-11-18 15:42] VITALS: BP 153/82; PULSE 85; RESP 20; TEMP 36.4; O2SAT 95; BMI 32.5
--- OUTSIDE RECORDS SUMMARY | 2023-11-18 15:58 | XMS_ITS | CCD ---
Author Name Unknown Address [address] [place] [address] Organization [facility] Care Team Providers Care Conduit Cleaner Name Role Phone SAROJ SANTAMARIA Unavailable Unavailable [...] Facility COVID Quick Testingon 2021 Result Negative [employer] Other CT abdomen pelvis wo conon 0 12-22-2018 CT abdomen pelvis wo con [facility] [place] [address] [place] [address] CT Scan Report Signed Patient: Radha Tariq MR#: [id number] : 1960 Acct:[id number] Age/Sex: 58 / M ADM Date: 12/21/18 Loc: ER Room: Type: [facility] ER Attending Dr: Ordering Provider: Jac Schumacher [...] Tamera Becerra M.D.12/22/2018 10:04 AM Dictation Location: [id number] Transcribed By: [facility] 12/22/18 1004 Dictated By: Tamera Becerra MD 12/22/18 0923 Signed By: 12/22/18 1004 Normal [facility] Amylaseon 12-21-2018 Amylase enzyme act/vol 38 U/L Normal 28-100 [facility] Comment on above: Performed By: #### H EPATIC, NATALIE, LIPASE #### [address] Basic Metabolic Panelon 12-10 Calcium mass conc 8.8 mg/dL Normal 8.2-10.2 [facility] Comment on above: Performed By: #### C BC, BMP #### [address] Chloride molar conc 102 mmol/L Normal 95-114 [facility] Comment on above: Performed By: #### C BC, BMP #### [address] CO2 molar conc 23.5 mmol/L Normal 22.0-30.0 [facility] Comment on above: Performed By: #### C BC, BMP #### [address] Creatinine mass conc 115.4032477235 mg/dL Normal [facility] Comment on above: Result Comment: PERF ORMED BY: [place] [address] PATHOLOGIST DISTRICT CLAIMS MANAGER HAROLDO LAGUNA M.D. Performed By: #### C BC, BMP #### [address] Creatinine mass conc 0.90 mg/dL Normal 0.64-1.27 [facility] Comment on above: Performed By: #### C BC, BMP #### [address] [place] [address] [place] Estimated GFR ( Juanita > 60 Normal [facility] Comment on above: Result Comment: GFR estimated reference range: According to KDOQI guidelines, <60 ml/min/1.73m2 is sufficient to diagnose a patient with chronic kidney disease. Performed By: #### C BC, BMP #### [address] Estimated GFR (Non- Am > 60 Normal [facility] Comment on above: Performed By: #### C BC, BMP #### [address] Glucose mass conc 136 mg/dL High 70-100 [facility] Comment on above: Result Comment: [place] om Glucose Reference Range is dependent on time and content of last meal. Glucose of more than 200 mg/dL in a nonstressed, ambulatory subject supports the diagnosis of Diabetes Mellitus. ADA recommended reference range Performed By: #### C BC, BMP #### [address] Potassium molar conc 3.5 mmol/L Normal 3.5-5.1 [facility] Comment on above: Performed By: #### C BC, BMP #### [address] Sodium molar conc 136 mmol/L Normal 136-146 [facility] Comment on above: Performed By: #### C BC, BMP #### [place] [address] [place] Urea nitrogen mass conc 12 mg/dL Normal 9-23 [facility] Comment on above: Performed By: #### C BC, BMP #### [address] Complete Blood Count Auto Di ffon 12-21-2018 Basophils #/vol (Bld) 0.0 10*3/uL Normal 0.0-0.2 [facility] Comment on above: Result Comment: PERF ORMED BY: [place] [address] PATHOLOGIST DISTRICT CLAIMS MANAGER JIANLAN SUN M.D. Performed By: #### C BC, BMP #### [address] Basophils/100 WBC (Bld) 0.1 % Normal . [facility] Comment on above: Performed By: #### C BC, BMP #### [facility] [address] Eosinophils #/vol (Bld) 0.0 10*3/uL Normal 0.0-0.45 [facility] Comment on above: Performed By: #### C BC, BMP #### [address] Eosinophils/100 WBC (Bld) 0.0 % Normal . [facility] Comment on above: Performed By: #### C BC, BMP #### [address] Erythrocyte distribution width Ratio (RBC) 15.0 % High 12.0-14.8 [facility] Comment on above: Performed By: #### C BC, BMP #### [address] Hematocrit Volume Fraction (Bld) 40.5 % Normal 38.8-50.0 [facility] Comment on above: Performed By: #### C BC, BMP #### [address] Hemoglobin mass conc (Bld) 13.0 g/dL Normal 13.0-17.0 [facility] Comment on above: Performed By: #### C BC, BMP #### [address] Lymphocytes #/vol (Bld) 0.7 10*3/uL Low 1.00-4.8 [facility] Comment on above: Performed By: #### C BC, BMP #### [address] Lymphocytes/100 WBC (Bld) 4.5 % Normal . [facility] Comment on above: Performed By: #### C BC, BMP #### [place] [address] [place] MCH Entitic mass (RBC) 32.2 g/dL Low 32.5-35.6 [facility] Comment on above: Performed By: #### C BC, BMP #### [address] MCH Entitic mass (RBC) 29.2 pg Normal 27.5-35.2 [facility] Comment on above: Performed By: #### C BC, BMP #### [address] MCV Entitic volume (RBC) 90.6 fL Normal 83.5-101 [facility] Comment on above: Performed By: #### C BC, BMP #### [address] Monocytes #/vol (Bld) 0.9 10*3/uL High 0.0-0.8 [facility] Comment on above: Performed By: #### C BC, BMP #### [address] Monocytes/100 WBC (Bld) 5.9 % Normal . [facility] Comment on above: Performed By: #### C BC, BMP #### [address] Neutrophils #/vol (Bld) 13.1 10*3/uL High 1.8-7.7 [facility] Comment on above: Performed By: #### C BC, BMP #### [address] Neutrophils/100 WBC (Bld) 89.5 % Normal . [facility] Comment on above: Performed By: #### C BC, BMP #### [address] Nucleated RBC/100 WBC Ratio (Bld) 0.0 % Normal 0-0.5 [facility] Comment on above: Performed By: #### C BC, BMP #### [address] Platelet mean volume Entitic volume (Bld) 7.9 fL Normal 6.6-10.1 [facility] Comment on above: Performed By: #### C BC, BMP #### [facility] [address] [place] [address] Platelets #/vol (Bld) 170 10*3/uL Normal 150-450 [facility] Comment on above: Performed By: #### C BC, BMP #### [facility] [address] [place] [address] RBC #/vol (Bld) 4.47 10*6/uL Normal 3.90-5.60 [facility] Comment on above: Performed By: #### C BC BMP #### [address] WBC #/vol (Bld) 14.7 10*3/uL High 4.5-11.0 [facility] Comment on above: Performed By: #### C BC BMP #### [address] Hepatic Panelon 12-21-2018 Albumin mass conc 4.0 g/dL Normal 3.2-5.5 [facility] Comment on above: Performed By: #### H EPATIC, NATALIE, LIPASE #### [address] Albumin/Globulin mass ratio 1.1 {ratio} Normal [facility] Comment on above: Performed By: #### H EPATIC, NATALIE, LIPASE #### [address] ALP enzyme act/vol 65 U/L Normal 32-92 [facility] Comment on above: Performed By: #### H EPATIC, NATALIE, LIPASE #### [address] ALT enzyme act/vol 17 U/L Normal 10-60 [facility] Comment on above: Performed By: #### H EPATIC, NATALIE, LIPASE #### [address] AST enzyme act/vol 22 U/L Normal 10-42 [facility] Comment on above: Performed By: #### H EPATIC, NATALIE, LIPASE #### [address] Bilirubin mass conc 0.6 mg/dL Normal 0.3-1.2 [facility] Comment on above: Performed By: #### H EPATIC, NATALIE, LIPASE #### [address] Bilirubin,Indirec t 0.5 mg/dL Normal [facility] Comment on above: Performed By: #### H EPATIC, NATALIE, LIPASE #### [address] Bilirubin.direct mass conc 0.1 mg/dL Normal 0.0-0.4 [facility] Comment on above: Performed By: #### H EPATIC, NATALIE, LIPASE #### [address] Globulin mass conc (S) 3.8 g/dL Normal [facility] Comment on above: Performed By: #### H EPATIC, NATALIE, LIPASE #### [address] Protein mass conc 7.8 g/dL Normal 6.1-7.9 [facility] Comment on above: Performed By: #### H EPATIC, NATALIE, LIPASE #### [address] Lipaseon 12-21-2018 Lipase enzyme act/vol 21.0 U/L Low 22-51 [facility] Comment on above: Result Comment: PERF ORMED BY: [place] [address] PATHOLOGIST DISTRICT CLAIMS MANAGER HAROLDO LAGUNA M.D. Performed By: #### H EPATIC, NATALIE, LIPASE #### [address] Urinalysison 12-21-2018 Appearance Nom (U) Clear Normal Clear [facility] Comment on above: Order Comment: Name Collection Type: Clean-Voided Midstream Performed By: #### U A #### [facility] [address] [place] [address] [place] Bilirubin,Urine Negative Normal Negative [facility] Comment on above: Order Comment: Name Collection Type: Clean-Voided Midstream Performed By: #### U A #### [address] Color Nom (U) Yellow Normal Yellow [facility] Comment on above: Order Comment: Name Collection Type: Clean-Voided Midstream Performed By: #### U A #### [place] [address] [place] Glucose Ql (U) 250 mg/dL High Normal [facility] Comment on above: Order Comment: Name Collection Type: Clean-Voided Midstream Performed By: #### U A #### [address] Ketones Ql (U) 1+ High Negative [facility] Comment on above: Order Comment: Name Collection Type: Clean-Voided Midstream Performed By: #### U A #### [address] Leukocyte esterase Test strip Ql (U) Negative Normal Negative [facility] Comment on above: Order Comment: Name Collection Type: Clean-Voided Midstream Performed By: #### U A #### [place] [address] [place] Nitrite,Urine Negative Normal Negative [facility] Comment on above: Order Comment: Name Collection Type: Clean-Voided Midstream Performed By: #### U A #### [facility] [address] [place] [address] [place] Occult Blood,Urine Negative Normal Negative [facility] Comment on above: Order Comment: Name Collection Type: Clean-Voided Midstream Result Comment: PERF ORMED BY: [place] [address] PATHOLOGIST DISTRICT CLAIMS MANAGER HAROLDO LAGUNA M.D. Performed By: #### U A #### [facility] [address] [place] [address] [place] pH (U) 6.0 [pH] Normal 5.0-9.0 [facility] Comment on above: Order Comment: Name Collection Type: Clean-Voided Midstream Performed By: #### U A #### [address] Protein mass conc (U) Negative Normal Negative [facility] Comment on above: Order Comment: Name Collection Type: Clean-Voided Midstream Performed By: #### U A #### [address] Specificy [place],Urine 1.022 Normal 1.001-1.030 [facility] Comment on above: Order Comment: Name Collection Type: Clean-Voided Midstream Performed By: #### U A #### [address] Urobilinogen,Urin e Normal Normal Normal [facility] Comment on above: Order Comment: Name Collection Type: Clean-Voided Midstream Performed By: #### U A #### [address] Provider [place] 10-21-2018 Protein mass conc [id number]#[id number] [facility] Coding Summaryon 09-28-2018 Coding Summary CODING DATE: 018 [facility] STATUS: Home PAYOR: Commercial Insurance ADMIT DX: REASON FOR VISIT DX: M17.12 Unilateral primary osteoarthritis, left knee FINAL DX: PRINCIPAL: M17.12 Unilateral primary osteoarthritis, left knee SECONDARY: PROCEDURES DOCTOR NAME DATE 25087 Arthroplasty, knee, condyle and STEPANIC, SAROJ 09/17/2018 [...] Jazmyne Teixeira Date Saved: 09/28/2018 07:34 am [facility] Lab - AP Resultson 8 Lab - AP Results [id number]#1.00[facility] History and Physicalon 09-24 History and Physical [id number] Path[facility] Sendout Teston Pathology Send Out. See Report [facility] Comment on above: Order Comment: LEFT KNEE BONE AND TISSUE Performed By: #### 7 759125, [id number], [id number], [id number] ####[facility] (DEFAULT)[address] [place] [address] Coding Summaryon 09-21-2018 Coding Summary CODING DATE: 018 [facility] STATUS: Home PAYOR: Commercial Insurance ADMIT DX: REASON FOR VISIT DX: M17.12 Unilateral primary osteoarthritis, left knee FINAL DX: PRINCIPAL: M17.12 Unilateral primary osteoarthritis, left knee SECONDARY: PROCEDURES DOCTOR NAME DATE 91705 Arthroplasty, knee, condyle and SAROJ SANTAMARIA plateau; [...] Teixeira Revised Date Saved: 09/21/2018 09:26 am [facility] MAGR Intraoperative Recordon 09-21-2018 MAGR Intraoperative Record MAGR Intra-Op Record Summary Primary Physician: SAROJ SANTAMARIA Finalized Date/Time: 09/21/18 14:05:16 Pt. Name: RADHA TARIQ/Sex: 1960 MALE Med Rec #: [id number] Physician: SAROJ SANTAMARIA Financial #: [id number] Pt. Type: O Room/Bed: 220/1 Admit/Disch: 09/17/18 [...] Role Performed Surgeon - Primary Anesthesiologist of [employer] Record Time In 09/17/18 11:50:00 09/17/18 11:50:00 09/17/18 11:50:00 Time Out 09/17/18 15:31:00 09/17/18 15:31:00 09/17/18 15:31:00 Procedure Arthroplasty Knee Arthroplasty Knee Arthroplasty Knee Total(Left) Total(Left) Total(Left) Last Modified By: Jacey Taylor RN, Stephanie RN Sauer, Stephanie RN 09/17/18 15:45:53 09/17/18 15:45:53 09/17/18 15:45:53 Entry 4 Entry 5 Entry 6 Case Attendee Jacey Taylor RN, Gowitzka, Liberty G Regina ACCOUNT OFFICER/CSFA Role Performed [employer] Biometrics Specialist Scrub Personnel Time In 09/17/18 11:50:00 09/17/18 11:50:00 09/17/18 11:50:00 Time Out 09/17/18 15:31:00 09/17/18 15:31:00 09/17/18 15:31:00 Procedure Arthroplasty Knee Arthroplasty Knee Arthroplasty Knee Total(Left) Total(Left) Total(Left) Last Modified By: Jacey Taylor RN, Stephanie RN Sauer, Stephanie RN 09/17/18 15:45:53 09/17/18 15:45:53 09/17/18 15:45:53 Entry 7 Case Attendee Jodi Anand ACCOUNT OFFICER Role Performed Biometrics Specialist Time In 09/17/18 11:50:00 Time Out 09/17/18 [...] Initial Count Method Initial Counts Virginia Álvarez RN, Initial Count Time 09/17/18 11:50:00 Performed By [...] Inserted By Jacey Taylor RN Inserted Date/Time 09/17/18 12:30:00 DC'd at End of Case? No [...] Volume 75 mL By SAROJ SANTAMARIA Regina ACCOUNT OFFICER/CSFA Outcome Met (O.130) Yes Yes Last Modified [...] STEPANIC, GEORGE By: Size 48MM 6.5X30MM 6.5X30MM Driver ELIDIA ELIDIA ELIDIA Catalog # Lot Number [id number] Expiration Date 04/10/28 07/11/28 08/11/28 Serial Number REF REF REF Device Identifier Human Readable ADEBAYO Machine Readable ADEBAYO MR Class Implant Usage Data Site Knee L Knee L Knee L Quantity 1 1 1 Reason for Explant Reason Not Retained Explant Disposition Full Roll Inspector Sterility External Indicator Result Internal Indicator Results [...] STEPANIC, GEORGE By: Size 48MM 32MM 32MM Driver ELIDIA ELIDIA ELIDIA Catalog # Lot Number [id number] Expiration Date 04/10/28 11/11/27 05/11/26 Serial Number REF REF REF Device Identifier Human Readable ADEBAYO Machine Readable ADEBAYO MR Class Implant Usage Data Site Knee L Knee L Knee L Quantity 1 1 1 Reason for Explant Reason Not Retained Explant Disposition Full Roll Inspector Sterility External Indicator Result Internal Indicator Results [...] Size 6 E F 10MM HEIGHT F Driver ELIDIA ELIDIA ELIDIA Catalog # Lot Number [id number] Expiration Date 02/09/28 06/11/22 03/11/25 Serial Number REF REF REF Device Identifier Human Readable ADEBAYO Machine Readable ADEBAYO MR Class Implant Usage Data Site Knee L Knee L Knee L Quantity 1 1 1 Reason for Explant Reason Not Retained Explant Disposition Full Roll Inspector Sterility External Indicator Result Internal Indicator Results Outcome Met (O.30) Yes Yes Yes Last Modified By: Henri LAN, Virginia Álvarez RN, Virginia Angelo RN 09/17/18 14:22:36 09/17/18 14:22:36 09/17/18 14:22:36 Entry 10 Procedure Arthroplasty Knee Total(Left) Implant Action Implant Implant Information Description ELIDIA [employer] Implant/Explant 09/17/18 14:48:00 Date/Time Implanted/Explanted SAROJ SANTAMARIA By: Size Driver ELIDIA Catalog # Lot Number [id number] Expiration Date 12/09/22 Serial Number Device Identifier Human Readable ADEBAYO Machine Readable ADEBAYO MR Class Implant Usage Data Site Knee L Quantity 2 Reason for Explant Reason Not Retained Explant Disposition Full Roll Inspector Sterility External Indicator Result Internal Indicator Results [...] Unfinalizing Freetext Reason for Unfinalizing 09/21/18 13:59 SAMMYBLONG Modify [facility] 09/21/18 14:01 MHBLONG Modify [facility] 09/21/18 14:04 MHBLONG Modify [facility] Consent Formson 09-20-2018 Consent Forms [id number]#[id number] Telemetry Stripson 8 Telemetry Strips [id number]#1.00[facility] .Auto Diff 1on 09-18-2018 Auto Baso % 0.0 % Low 0.2-2.0 [facility] Comment on above: Performed By: #### 7 284248, [id number], 3574796, [id number] ####[facility] ([facility])[address] [place] [address] Auto Loíza % 9 % Normal 1-12 [facility] Comment on above: Performed By: #### 7 244498, 20510139, 2103090, [id number] ####[facility] ([facility])[address] [place] [address] Auto Neut % 80 % Normal 44-88 [facility] Comment on above: Performed By: #### 7 499724, 10677869, 6226772, [id number] ####[facility] ([facility])[address] [place] [address] Baso Abs# 0.0 x10 Normal 0.0-0.2 [facility] Comment on above: Performed By: #### 7 856009, 85657874, 4377401, [id number] ####[facility] ([facility])[address] [place] [address] Eos Abs# 0.0 x10 Normal 0.0-0.4 [facility] Comment on above: Performed By: #### 7 359666, 91452665, 0716770, [id number] ####[facility] ([facility])[address] [place] [address] Eosinophils/100 WBC Auto (Bld) 0.1 % Low 0.9-4.0 [facility] Comment on above: Performed By: #### 7 133744, 93949839, 0304726, [id number] ####[facility] ([facility])[address] [place] [address] Lymphocytes Auto #/vol (Bld) 1.2 x10 Low 1.3-2.9 [facility] Comment on above: Performed By: #### 7 800618, 26972944, 5612007, [id number] ####[facility] ([facility])[address] [place] [address] Lymphocytes/100 WBC Auto (Bld) 11 % Low 14-48 [facility] Comment on above: Performed By: #### 7 031898, 44190247, 9844414, [id number] ####[facility] ([facility])[address] [place] [address] Loíza Abs# 1.0 x10 High 0.0-0.8 [facility] Comment on above: Performed By: #### 7 956958, 50497257, 0636093, [id number] ####[facility] ([facility])[address] [place] [address] Neut Abs# 8.8 x10 Normal 1.5-9.2 [facility] Comment on above: Performed By: #### 7 045759, 00652523, 6546120, [id number] ####[facility] ([facility])[address] [place] [address] CBC w/ Auto Diffon 8 Erythrocyte distribution width Auto Ratio (RBC) 12.4 % Normal 11.5-15.0 [facility] Comment on above: Performed By: #### 7 846702, 76207130, 5445754, [id number] ####[facility] ([facility])[address] [place] [address] Hematocrit Auto Volume Fraction (Bld) 38.5 % Normal 34.8-51.9 [facility] Comment on above: Performed By: #### 7 934544, 92002300, 0036169, [id number] ####[facility] ([facility])[address] [place] [address] Hemoglobin mass conc (Bld) 13.1 g/dL Normal 11.8-17.7 [facility] Comment on above: Performed By: #### 7 619596, 35348954, 4266697, [id number] ####[facility] ([facility])[address] [place] [address] Man Diff? Auto Normal [facility] Comment on above: Performed By: #### 7 426488, 16500658, 5330396, [id number] ####[facility] ([facility])[address] [place] [address] MCH Auto Entitic mass (RBC) 31 pg Normal 24-34 [facility] Comment on above: Performed By: #### 7 958655, 98782392, 3569556, [id number] ####[facility] ([facility])[address] [place] [address] MCHC Auto mass conc (RBC) 34 g/dL Normal 26-37 [facility] Comment on above: Performed By: #### 7 262311, 65794821, 6145628, [id number] ####[facility] ([facility])[address] [place] [address] MCV Auto Entitic volume (RBC) 91 fL Normal 81-100 [facility] Comment on above: Performed By: #### 7 661891, 63191089, 8589535, [id number] ####[facility] ([facility])[address] [place] [address] Platelet mean volume Auto Entitic volume (Bld) 9.4 fL Normal 6.3-10.2 [facility] Comment on above: Performed By: #### 7 493923, 09952961, 5705576, [id number] ####[facility] ([facility])[address] [place] [address] Platelets Auto #/vol (Bld) 171 x10 Normal 138-427 [facility] Comment on above: Performed By: #### 7 763063, 01906360, 7043734, [id number] ####[facility] ([facility])[address] [place] [address] RBC Auto #/vol (Bld) 4.25 x10 Normal 3.70-5.30 [facility] Comment on above: Performed By: #### 7 843713, 44976993, 6874183, [id number] ####[facility] ([facility])[address] [place] [address] WBC Auto #/vol (Bld) 11.0 x10 Invalid Interpretation Code [facility] Comment on above: Performed By: #### 7 675235, 90952783, 9070555, [id number] ####[facility] ([facility])[address] [place] [address] Education Noteon 09-18-2018 Education Note Education MaterialsP [...] office hours if you have any questions [phone] after office hours, call [facility] [phone] and have them page Mehdi may take Motrin [id number] in addition to the Percocet to supplement [...] done to rule of a DVT. Normal [facility] Electrolyte Panel Standardon 09-18-2018 Anion gap 3 molar conc 13.0 mmol/L Normal 5.0-19.0 [facility] Comment on above: Performed By: #### 7 133312, 94271877, 0680219, [id number] ####[facility] ([facility])[address] [place] [address] Chloride molar conc 101 mmol/L Normal 101-111 [facility] Comment on above: Performed By: #### 7 997221, 97471386, 0785721, [id number] ####[facility] ([facility])[address] [place] [address] CO2 molar conc 26 mmol/L Normal 21-32 [facility] Comment on above: Performed By: #### 7 985988, 83348194, 9440640, [id number] ####[facility] ([facility])[address] [place] [address] Potassium molar conc 4.2 mmol/L Normal 3.6-5.1 [facility] Comment on above: Performed By: #### 7 563796, 62922740, 9144754, [id number] ####[facility] ([facility])[address] [place] [address] Sodium molar conc 136.0 mmol/L Normal 136.0-144.0 [facility] Comment on above: Performed By: #### 7 012649, 47137650, 0219147, [id number] ####[facility] ([facility])[address] [place] [address] Inpatient Patient Summaryon 09-18-2018 Inpatient Patient Summary [facility] [place] [address] patient Discharge InstructionsName: RADHA TARIQ GDOB: 64 Address: [address] [place] [address] Care Provider:Name: PARKER ROCHAPhone: After you are discharged if you find you have any questions, please, call [phone] ext [phone] to speak to a nurse.Discharge Diagnosis: Status [...] or business decisions or sign any legal documentsK[facility] would like to thank you for allowing us to assist you with your healthcare needs. The following includes patient education materials and information regarding your injury/illness.RADHA TARIQ has been given the following list of follow-up instructions, prescriptions, and patient education materials:Follow-up InstructionsWith: Address: When:Jacob Tolentino [address] [place] [address], [address] [place], [place] [address] Business (1) 10/01/2018 10:00 AMWith: Address: When:PARKER ROCHA [address] [place] [address] Business (1)MedicationsDuring the course of your [...] office hours if you have any questions [phone] after office hours, call [facility] [phone] and have them page You may take Motrin [id number] in addition to the Percocet to supplement [...] for Disease Control and Prevention June 2014 [facility] Pharmacy Noteon 09-18-2018 Pharmacy Note This patient [...] on: 09/18/2018 15:47 EST] Amilcar Abbasi RPh [facility] Progress Note - Nurseon Protein mass conc Dressing change comp lete to left knee. Old dressing contained a small amt. of dry brown drainage. No bruising or redness noted to incision. Incision well approximated. Triston intact. Pt. able to stand to walker and sit to chair with stand by assist only. Pt. steady with ambulation. Pt. reports pain tolerable to left knee. Circ checks WNL. Polar care, foot pumps, and pravin hose in place.[Electronically Signed on: 09/18/2018 15:24 EST] Jamar Dolan RN[Verified on: 09/18/2018 15:24 EST] Jamar Dolan RN [facility] Anesthesia Noteon 09-17-2018 Anesthesia Note Patient: BRANDAN [...] (past medical history):All ProblemsArthritis / SNOMED CT 3971798 / ConfirmedChronic knee pain / SNOMED CT 96188733 / ConfirmedHistoriesFamily History:Heart diseaseFatherCHF (congestive heart failure)FatherDiabetesFathe rProcedure history:Arthroscopy of knee (443209988) in 1999 at 40 Years.Comments:08/26/2018 13:12 - Frances Russo RNright knee08/26/2018 13:11 - Frances Russo RNtorn acl and meniscusAppendectomy ([id number]).Comments:2017 13:10 - Frances Russo RN1990sArthroscopy of knee (350175447).Comments:2017 13:11 - Frances Russo RNtorn meniscus on leftSocial History Alcohol Assessment Use: Current. Beer, Wine, Liquor, Daily, 1 drinks/episode average. Substance Abuse Assessment Substance use: Never. Employment/School Assessment Employed Home/Environment Assessment Lives with Spouse. Living situation: Home/Independent. Nutrition/Health Assessment Regular, Caffeine intake amount: 2 cups daily..Social & Psychosocial XligktCspfqul22/15/2018 Alcohol Use: Current Type: Beer, Liquor, Wine Frequency: Daily Average drinks per episode in last year: 1Employment/Gkiqwy06 8 Status: EmployedHome/Caaearyfdma17/ 15/2018 Lives with: Spouse Living situation: Home/IndependentNutrition/H [...] on: 09/17/2018 13:08 EST] Nura Edmond MD [facility] MAGR Intraoperative Recordon 09-17-2018 MAGR Intraoperative Record MAGR Intra-Op Record Summary Primary Physician: Finalized Date/Time: 09/17/18 12:07:10 Pt. Name: CHANDNIRADHA Gallegos D.O.B./Sex: 1960 MALE Med Rec #: [id number] Physician: SAROJ SANTAMARIA Financial #: [id number] Pt. Type: D Room/Bed: 220/1 Admit/Disch: 09/17/18 [...] MD, Ruth RN Role Performed Anesthesiologist of [employer] Record Time In 09/17/18 11:30:00 09/17/18 11:30:00 [...] By: Kaila Barrera RN 09/17/18 12:07 [facility] MAGR PACU Record MAGR PACU Record [facility] Primary Physician: SAROJ SANTAMARIA Finalized Date/Time: 09/17/18 16:45:45 Pt. Name: RADHA TARIQ/Sex: 1960 MALE Med Rec #: [id number] Physician: SAROJ SANTAMARIA Financial #: [id number] Pt. Type: D Room/Bed: 220/1 Admit/Disch: 09/17/18 [...] Signed By: Vita Hamilton RN 09/17/18 16:45 [facility] [place] [place] MAGR Pre-Op Record Summary Primary Physician: SAROJ SANTAMARIA Finalized Date/Time: 09/17/18 12:08:48 Pt. Name: RADHA TARIQ/Sex: 1960 MALE Med Rec #: [id number] Physician: SAROJ SANTAMARIA Financial #: [id number] Pt. Type: D Room/Bed: 220/1 Admit/Disch: 09/17/18 [...] Signed By: Kaila Barrera RN 09/17/18 12:08 [facility] Nutrition Noteon 09-17-2018 Protein mass conc 58 year old male adm . for Surgery for L Total Knee Arthroplasty. No recent wt. changes identified, nor problems chewing/swallowing or GI issues. Pt. is at low nutritional risk currently and normal events are to adv diet as tolerated and may have a nutritional supplement to boost calories/pro for wound healing. Continue to follow. [facility] Progress Note - Nurseon Protein mass conc [...] on: 09/17/2018 19:30 EST] Lyla Varela RN [facility] UA w Culture if Ind Standard on 09-17-2018 Breakpoint UA Normal [facility] Comment on above: Order Comment: MAGUIRE INSERT Performed By: #### 7 [id number], 57914811, 2130448, [id number] ####[facility] ([facility])[address] [place] [address]690 Color Nom (U) YELLOW Invalid Interpretation Code [facility] Comment on above: Order Comment: MAGUIRE INSERT Performed By: #### 7 502234, 25840590, 3060229, [id number] ####[facility] (DEFAULT)[address] [place] [address] 46607 Culture? Not Indicated Invalid Interpretation Code [facility] Comment on above: Order Comment: MAGUIRE INSERT Performed By: #### 7 609813, 75722089, 5105705, [id number] ####[facility] (DEFAULT)[address] [place] [address] 99163 Glucose mass conc (U) Negative Invalid Interpretation Code [facility] Comment on above: Order Comment: MAGUIRE INSERT Performed By: #### 7 241044, 58804720, 1937772, [id number] ####[facility] (DEFAULT)[address] [place] [address] 67874 Ketones Ql (U) Negative Invalid Interpretation Code [facility] Comment on above: Order Comment: MAGUIRE INSERT Performed By: #### 7 694838, 22733984, 1351712, [id number] ####[facility] (DEFAULT)[address] [place] [address] 60340 Micro? Not Indicated Invalid Interpretation Code [facility] Comment on above: Order Comment: MAGUIRE INSERT Performed By: #### 7 785948, 83841690, 1529094, [id number] ####[facility] (DEFAULT)[address] [place] [address] 75498 UA Bilirubin Negative Normal [facility] Comment on above: Order Comment: MAGUIRE INSERT Performed By: #### 7 704067, 31525060, 2293690, [id number] ####[facility] (DEFAULT)[address] [place] [address] 71879 UA Blood Negative Normal NEGATIVE [facility] Comment on above: Order Comment: MAGUIRE INSERT Performed By: #### 7 312733, 11778168, 6360971, [id number] ####[facility] (DEFAULT)[address] [place] [address] UA Clarity CLEAR Normal CLEAR [facility] Comment on above: Order Comment: MAGUIRE INSERT Performed By: #### 7 246944, 66568164, 5112633, [id number] ####[facility] (DEFAULT)[address] [place] [address] UA Leuk Est Negative Normal NEGATIVE [facility] Comment on above: Order Comment: MAGUIRE INSERT Performed By: #### 7 080650, 68683517, 7989374, [id number] ####[facility] (DEFAULT)[address] [place] [address] UA Nitrite Negative Normal NEGATIVE [facility] Comment on above: Order Comment: MAGUIRE INSERT Performed By: #### 7 293382, 73665478, 9844203, [id number] ####[facility] ([facility])[address] [place] [address] UA pH 5.5 Invalid Interpretation Code 5-8 [facility] Comment on above: Order Comment: MAGUIRE INSERT Performed By: #### 7 696225, 76523963, 5624978, [id number] ####[facility] ([facility])[address] [place] [address] UA Protein Negative Normal NEGATIVE [facility] Comment on above: Order Comment: MAGUIRE INSERT Performed By: #### 7 130689, 53728831, 9834729, [id number] ####[facility] ([facility])[address] [place] [address] UA Spec Grav >=1.030 Invalid Interpretation Code 1.001-1.035 [facility] Comment on above: Order Comment: MAGUIRE INSERT Performed By: #### 7 250883, 69311975, 4537912, [id number] ####[facility] ([facility])[address] [place] [address] UA Urobilinogen 0.2 mg/dL Normal 0.2-1.0 [facility] Comment on above: Order Comment: MAGUIRE INSERT Performed By: #### 7 994906, 31813947, 4508962, [id number] ####[facility] ([facility])[address] [place] [address] Urine Source Maguire Catheter [facility] Comment on above: Order Comment: MAGUIRE INSERT Performed By: #### 7 481183, 57658200, 7905181, [id number] ####[facility] ([facility])[address] [place] [address] XR Knee One or Two Views Lef [...] noted primarilyanteriorly compatible with recent surgery. Postoperative triston are notedanteriorly. Previously noted overlying opacity is no longer identifiedcompatible with interval removal.IMPRESSION: UNREMARKABLE POST ARTHROPLASTY APPEARANCE OF THE LEFT KNEE.SHAN Canas #: [id number]: 09/18/2018T: 09/18/2018 Final Dictated by: Varinder Ureañ MD SDictated DT/TM: 09/18/18 6:14Signed (Electronic Signature): Varinder Ureña MD 09/18/18 7:58 amTechnologist: RASHID [facility] XR Knee One or Two Views Left [...] anteriorly withoverlying gauze like density with postoperative triston. There is opacitynoted posteriorly, medially within the soft tissue likely representing smalldrain, correlate clinically.IMPRESSION: UNREMARKABLE POST ARTHROPLASTY APPEARANCE OF THE LEFT KNEE.SHAN Canas #: [id number]: 09/17/2018T: 09/17/2018 Final Dictated by: Varinder Ureña MD SDictated DT/TM: 09/17/18 4:34Signed (Electronic Signature): Varinder Ureña MD S 09/17/18 4:54 pmTechnologist: [facility] ABORhon 09-16-2018 ABO and Rh group Nom (Bld) Hx Check: Not Found Anti-A: 4+ Anti-B: 0 Anti-D: 4+ DCon: NT A1: 0 B: 2+ ABORh Interp: A POS Invalid Interpretation Code [facility] Comment on above: Performed By: #### 7 569164, 52463212, 0273957, [id number] ####[facility] ([facility])[address] [place] [address] ABORh Retypeon 09-16-2018 ABO and Rh group Nom (Bld) Ordered by Discern. Anti-A: 4+ Anti-B: 0 Anti-D: 4+ DCon: NT A1: 0 B: 2+ ABORh Retype: A POS Invalid Interpretation Code [facility] Comment on above: Performed By: #### 7 416213, 07955790, 6367431, [id number] ####[facility] (DEFAULT)[address] [place] [address] ABSC Gelon 09-16-2018 ABSC Gel Negative [facility] Comment on above: Performed By: #### 7 957016, 79077093, 3035265, [id number] ####[facility] (DEFAULT)[address] [place] [address] Blood Bank IDon 09-16-2018 Blood Bank ID BBID: [id number] Invalid Interpretation Code [facility] Comment on above: Performed By: #### 7 819940, 74736236, 5079575, [id number] ####[facility] ([facility])[address] [place] [address] Hgbon 09-16-2018 Hemoglobin mass conc (Bld) 15.0 g/dL Normal 11.8-17.7 [facility] Comment on above: Performed By: #### 2 669691 ####[facility] (DEFAULT)[address] [place] [address] Progress Note - Nurseon Protein mass conc Spoke with pt and in formed him to be here at 8am and NPO after MN, he verbalizes understanding.[Electronical ly Signed on: 09/16/2018 09:29 EST] Yajaira Ellsworth RN[Verified on: 09/16/2018 09:29 EST] Yajaira Ellsworth RN [facility] Coding Summaryon 09-03-2018 Coding Summary CODING DATE: 018 [facility] STATUS: Home PAYOR: [employer] DESCRIPTION [...] Tang Revised Date Saved: 08/30/2018 08:56 am [facility] Progress Note - Nurseon 08-[address] Salgado reviews ch art and pat results for surgery on 09/17/18. No orders received.[Electronically Signed on: 08/31/2018 12:57 EST] Frances Russo RN[Verified on: 08/31/2018 12:57 EST] Frances Russo RN Normal [facility] .Auto Diff 1on 08-26-2018 Auto Baso % 0.3 % Normal 0.2-2.0 [facility] Comment on above: Performed By: #### 7 781762, 79205860, 1681585, [id number] ####[facility] (DEFAULT)[address] [place] [address] Auto Loíza % 9 % Normal 1-12 [facility] Comment on above: Performed By: #### 7 286784, 36811408, 7368473, [id number] ####[facility] (DEFAULT)[address] [place] [address] Auto Neut % 51 % Normal 44-88 [facility] Comment on above: Performed By: #### 7 998056, 93649635, 2376324, [id number] ####[facility] (DEFAULT)[address] [place] [address] Baso Abs# 0.0 x10 Normal 0.0-0.2 [facility] Comment on above: Performed By: #### 7 245141, 51284855, 8951285, [id number] ####[facility] (DEFAULT)[address] [place] [address] Eos Abs# 0.2 x10 Normal 0.0-0.4 [facility] Comment on above: Performed By: #### 7 812462, 66033196, 0788089, [id number] ####[facility] (DEFAULT)[address] [place] [address] Eosinophils/100 WBC Auto (Bld) 2.4 % Normal 0.9-4.0 [facility] Comment on above: Performed By: #### 7 903699, 21418431, 6152532, [id number] ####[facility] (DEFAULT)[address] [place] [address] Lymphocytes Auto #/vol (Bld) 2.9 x10 Normal 1.3-2.9 [facility] Comment on above: Performed By: #### 7 239397, 75764048, 0191774, [id number] ####[facility] (DEFAULT)[address] [place] [address] Lymphocytes/100 WBC Auto (Bld) 37 % Normal 14-48 [facility] Comment on above: Performed By: #### 7 625301, 22632019, 0962950, 7351152325 ####[facility] ([facility])[address] [place] [address] Loíza Abs# 0.7 x10 Normal 0.0-0.8 [facility] Comment on above: Performed By: #### 7 589296, 84077668, 9465186, [id number] ####[facility] ([facility])[address] [place] [address] Neut Abs# 4.0 x10 Normal 1.5-9.2 [facility] Comment on above: Performed By: #### 7 375814, 01374674, 4825773, 6110220997 ####[facility] (DEFAULT)[address] [place] [address] CBC w/ Auto Diffon 8 Erythrocyte distribution width Auto Ratio (RBC) 12.6 % Normal 11.5-15.0 [facility] Comment on above: Performed By: #### 7 493483, 72397230, 6314023, 6331056052 ####[facility] (DEFAULT)[address] [place] [address] Hematocrit Auto Volume Fraction (Bld) 44.7 % Normal 34.8-51.9 [facility] Comment on above: Performed By: #### 7 506801, 03900652, 3290015, 1773620126 ####[facility] (DEFAULT)[address] [place] [address] Hemoglobin mass conc (Bld) 15.0 g/dL Normal 11.8-17.7 [facility] Comment on above: Performed By: #### 7 442575, 22140168, 6763930, 8625375324 ####[facility] ([facility])[address] [place] [address] Man Diff? Auto Normal [facility] Comment on above: Performed By: #### 7 428449, 57284733, 3069409, 5426685083 ####[facility] ([facility])[address] [place] [address] MCH Auto Entitic mass (RBC) 30 pg Normal 24-34 [facility] Comment on above: Performed By: #### 7 440157, 54149032, 9401749, 6874059908 ####[facility] (DEFAULT)[address] [place] [address] MCHC Auto mass conc (RBC) 34 g/dL Normal 26-37 [facility] Comment on above: Performed By: #### 7 264108, 46504580, 8479249, 2849713400 ####[facility] ([facility])[address] [place] [address] MCV Auto Entitic volume (RBC) 91 fL Normal 81-100 [facility] Comment on above: Performed By: #### 7 517802, 39146426, 4245546, 8264901906 ####[facility] (DEFAULT)[address] [place] [address] Platelet mean volume Auto Entitic volume (Bld) 10.0 fL Normal 6.3-10.2 [facility] Comment on above: Performed By: #### 7 699689, 58767930, 4098468, 6929051654 ####[facility] (DEFAULT)[address] [place] [address] Platelets Auto #/vol (Bld) 174 x10 Normal 138-427 [facility] Comment on above: Performed By: #### 7 761696, 60873265, 9149227, 3959388051 ####[facility] (DEFAULT)[address] [place] [address] RBC Auto #/vol (Bld) 4.93 x10 Normal 3.70-5.30 [facility] Comment on above: Performed By: #### 7 677716, 14937197, 5386564, 7316241355 ####[facility] (DEFAULT)[address] [place] [address] 81461 WBC Auto #/vol (Bld) 7.8 x10 Normal 3.5-10.5 [facility] Comment on above: Performed By: #### 7 036887, 53974843, 6479821, 8169160094 ####[facility] (DEFAULT)[address] [place] [address] 21008 CMP Standardon 08-26-2018 eGFR Non AA >60 Invalid Interpretation Code [facility] Comment on above: Performed By: #### 7 653666, 01647239, 7109141, 4802603789 ####[facility] (DEFAULT)[address] [place] [address] eGFR AA >60 Invalid Interpretation Code [facility] Comment on above: Result Comment: [employer] leila Kidney disease could be indicated at eGFRs of less than 60 ml/min/1.73m2. Kidney Failure is indicated at less than 15 ml/min/1.73m2 Performed By: #### 7 597344, 00253006, 4268522, 3753422360 ####[facility] ([facility])[address] [place] [address] 08080 Albumin mass conc 4.2 g/dL Normal 3.5-5.0 [facility] Comment on above: Performed By: #### 7 136300, 63081125, 6261141, 6195160671 ####[facility] ([facility])[address] [place] [address] 91293 Albumin/Globulin mass ratio 1.4 {ratio} Normal 1.4-2.6 [facility] Comment on above: Performed By: #### 7 941389, 41647502, 2653745, 2235408877 ####[facility] ([facility])[address] [place] [address] 35508 Alk Phos 56 IU/L Normal 32-91 [facility] Comment on above: Performed By: #### 7 124523, 47355350, 1435921, 2446824945 ####[facility] ([facility])[address] [place] [address] 25252 ALT/SGPT 28.0 IU/L Normal 17.0-63.0 [facility] Comment on above: Performed By: #### 7 983419, 47821159, 3218109, 6486840770 ####[facility] (DEFAULT)[address] [place] [address] Anion gap 3 molar conc 12.0 mmol/L Normal 5.0-19.0 [facility] Comment on above: Performed By: #### 7 309634, 19384104, 6722800, 7330375430 ####[facility] (DEFAULT)[address] [place] [address] AST/SGOT 22 IU/L Normal 15-41 [facility] Comment on above: Performed By: #### 7 363885, 32272799, 5127427, 9750865555 ####[facility] ([facility])[address] [place] [address] 69100 Bili Total 1.1 mg/dL Normal 0.3-1.2 [facility] Comment on above: Performed By: #### 7 629805, 66075247, 6611731, 4495620106 ####[facility] ([facility])[address] [place] [address] 99235 Calcium mass conc 8.5 mg/dL Low 8.9-10.3 [facility] Comment on above: Performed By: #### 7 981346, 36822135, 2232064, 4551996006 ####[facility] ([facility])[address] [place] [address] 75442 Chloride molar conc 105 mmol/L Normal 101-111 [facility] Comment on above: Performed By: #### 7 138334, 07736102, 8791717, 1467624006 ####[facility] ([facility])[address] [place] [address] 28054 CO2 molar conc 25 mmol/L Normal 21-32 [facility] Comment on above: Performed By: #### 7 323721, 38056357, 6637729, 8235027249 ####[facility] ([facility])[address] [place] [address] 32707 Creatinine mass conc 0.82 mg/dL Low 0.90-1.30 [facility] Comment on above: Performed By: #### 7 033301, 03058330, 3606993, 4249363756 ####[facility] ([facility])[address] [place] [address] 35139 Globulin Calculated mass conc (S) 3.1 g/dL Normal 1.5-4.3 [facility] Comment on above: Performed By: #### 7 019755, 01092774, 0537521, 2388788931 ####[facility] ([facility])[address] [place] [address] 04467 Glucose mass conc 85.0 mg/dL Normal 74.0-118.0 [facility] Comment on above: Performed By: #### 7 540906, 98471942, 2368424, 0950949996 ####[facility] ([facility])[address] [place] [address] 36427 Osmolality 279 mOsm/L Invalid Interpretation Code [facility] Comment on above: Performed By: #### 7 137270, 32951785, 4415703, 2434153129 ####[facility] ([facility])[address] [place] [address] 64340 Potassium molar conc 3.7 mmol/L Normal 3.6-5.1 [facility] Comment on above: Performed By: #### 7 011885, 07627149, 9411230, 6018476340 ####[facility] ([facility])[address] [place] [address] 49336 Protein mass conc 7.3 g/dL Normal 6.5-8.1 [facility] Comment on above: Performed By: #### 7 691598, 51970369, 0206674, 1758495739 ####[facility] ([facility])[address] [place] [address] 88656 Sodium molar conc 138.0 mmol/L Normal 136.0-144.0 [facility] Comment on above: Performed By: #### 7 434460, 89159283, 5233389, 6398300195 ####[facility] (DEFAULT)[address] [place] [address] Urea nitrogen mass conc 23 mg/dL Normal 8-26 [facility] Comment on above: Performed By: #### 7 201363, 97183789, 0344602, 7873289598 ####[facility] (DEFAULT)[address] [place] [address] Urea nitrogen/Creatini ne mass ratio 28.0 mg/mg High 4.6-16.2 [facility] Comment on above: Performed By: #### 7 136201, 56962987, 2235834, 5794369465 ####[facility] (DEFAULT)[address] [place] [address] PT/PTTon 08-26-2018 aPTT Coag time (Bld) 27 second(s) Normal 25-35 [facility] Comment on above: Performed By: #### 7 586124, 87298208, 9249551, 4806869192 ####[facility] (DEFAULT)[address] [place] [address] INR Coag RelTime (PPP) 1.03 {INR} Normal 0.91-1.11 [facility] Comment on above: Performed By: #### 7 001380, 07366657, 5342722, 8523715397 ####[facility] ([facility])[address] [place] [address] 84156 Prothrombin time (PT) Coag time (PPP) 10.8 second(s) Normal 9.7-11.8 [facility] Comment on above: Performed By: #### 7 684575, 40396355, 1617933, 9349029383 ####[facility] (DEFAULT)[address] [place] [address] UA Standardon 08-26-2018 Breakpoint UA Normal [facility] Comment on above: Performed By: #### 1 [id number] ####[facility] ([facility])[address] [place] [address] Color Nom (U) YELLOW Invalid Interpretation Code [facility] Comment on above: Performed By: #### 1 [id number] ####[facility] ([facility])[address] [place] [address] 03045 Glucose mass conc (U) Negative Invalid Interpretation Code [facility] Comment on above: Performed By: #### 1 [id number] ####[facility] ([facility])[address] [place] [address] 52461 Ketones Ql (U) TRACE Invalid Interpretation Code [facility] Comment on above: Performed By: #### 1 [id number] ####[facility] (DEFAULT)[address] [place] [address] UA Bilirubin Negative Normal [facility] Comment on above: Performed By: #### 1 [id number] ####[facility] (DEFAULT)[address] [place] [address] UA Blood Negative Normal NEGATIVE [facility] Comment on above: Performed By: #### 1 [id number] ####[facility] ([facility])[address] [place] [address]476 UA Clarity CLEAR Normal CLEAR [facility] Comment on above: Performed By: #### 1 [id number] ####[facility] ([facility])[address] [place] [address] 04404 UA Leuk Est Negative Normal NEGATIVE [facility] Comment on above: Performed By: #### 1 [id number] ####[facility] ([facility])[address] [place] [address] 70658 UA Nitrite Negative Normal NEGATIVE [facility] Comment on above: Performed By: #### 1 [id number] ####[facility] (DEFAULT)[address] [place] [address] UA pH 5.5 Invalid Interpretation Code 5-8 [facility] Comment on above: Performed By: #### 1 [id number] ####[facility] (DEFAULT)[address] [place] [address] UA Protein Negative Normal NEGATIVE [facility] Comment on above: Performed By: #### 1 [id number] ####[facility] (DEFAULT)[address] [place] [address] UA Spec Grav >=1.030 Invalid Interpretation Code 1.001-1.035 [facility] Comment on above: Performed By: #### 1 [id number] ####[facility] (DEFAULT)[address] [place] [address] UA Urobilinogen 0.2 mg/dL Normal 0.2-1.0 [facility] Comment on above: Performed By: #### 1 [id number] ####[facility] (DEFAULT)[address] [place] [address] Urine Source Clean Catch Normal [facility] Comment on above: Performed By: #### 1 [id number] ####[facility] (DEFAULT)[address] [place] [address] XR Chest 2 Viewson 8 XR Chest [...] SEEN IN THE CHEST.Varinder Ureña MDJOB #: [id number]: 09/16/2018T: 09/16/2018 Final Dictated by: Varinder Ureña [...] JOINT EFFUSION SUGGESTED.3. FOLLOW-UP NEEDED.SHAN Canas #: [id number]: 08/26/2018T: 08/26/2018 Final Dictated by: Varinder Ureña MD SDictated DT/TM: 08/26/18 2:53Signed (Electronic Signature): Varinder Ureña MD 08/27/18 5:33 amTechnologist: [facility] Vital Signs Date Time Vital Sign Value Performing Clinician Facility 10-13-2021 14:00-0500 Body height 182.88 cm Jacey Caity Other [facility] Other 10-13-2021 14:00-0500 Body mass index (BMI) [Ratio] 33.22 kg/m2 Jacey Caity Other [facility] Other 10-13-2021 14:00-0500 Body temperature 97.6 [degF] Jacey Caity Other [facility] Other 10-13-2021 14:00-0500 Body weight 111.13 kg Jacey Caity Other [facility] Other 10-13-2021 14:00-0500 Respiratory rate 18 /min Jacey Caity Other [facility] Other 10-13-2021 14:00-0500 SaO2% (BldA) [Mass fraction] 96 % Jacey Caity Other [facility] Other Encounters Encounter Date Encounter Type Care Provider Facility Start: 08-31-2023 End: 09-01-2023 ambulatory SAROJ FREY Not Available Start: 10-13-2021 End: 10-13-2021 ambulatory Jacey Caity Other [facility] Other Start: 10-13-2021 Office outpatient visit 15 minutes Jacey Jensenault [facility] Start: 12-31-2020 End: 05-17-[address] NONE LISTED REQUEST Facility: Start: 12-21-2018 End: 12-22-2018 Emergency department patient visit Jac Schumacher Facility:[facility] Start: 09-18-2018 End: 09-18-2018 Patient encounter [facility] Start: 08-27-2018 End: 08-27-2018 Patient encounter procedure [facility] Facility:[facility] Payers Date Payer Category Payer Private Health Insurance [id number] 2018 Private Health Insurance [id number] 2018 Self-pay [facility] 2018 Unknown [id number] 1960 Unknown [id number] 2.16.84 [id number]. 1960 Unknown [id number] 2.16.84 [id number]. 1960 Unknown [id number] 2.16.84 0.1.389812.3.579.2. 1960 Unknown [id number] 2.16.840 .[id number] 1960 Unknown [id number] 2.16.840 .[id number] 1960 Unknown [id number] 2.16.840 .[id number] 1959 Self-pay Unknown [id number] 2.16.840 .[id number] Unknown [id number] 2.16.84 [id number] Unknown [id number] 2.16 .[id number] Social History Date Type Detail Facility Unknown if ever smoked [facility] Other Sex Assigned At Sex Assigned At Bir th [facility] Other Evaluation note 10-13-2021 Note Date & [...] Patient care instructions given in writting by [facility] Care At Home document. [facility] Other History general Narrative - Reported Note Date & Type Note Facility History general Narrative - Reported Type Surgical History knee replacement x2 [facility] Other Summary Purpose Family History No Family History Records FoundNo Family History Records FoundNo Family History Records FoundNo Family History Records Found Advance Directives No Advanced Directives Records FoundNo Advanced Directives Records FoundNo Advanced Directives Records FoundNo Advanced Directives Records Found Hospital Course Note [facility] 2SOUTHCl inical Discharge SummaryPERSON INFORMATIONName RADHA TARIQ Age 58 Years 64Sex MALE Language Chinese PCP Андрей ROCHA Status [facility] Acct# Arrival 09/17/18 07:40:24Visit Reason SURGERY - LEFT TOTAL KNEE ARTHROPLASTY Acuity LOSAddress:[address] [facility] [id number]:PROVIDER INFORMATIONVITALS INFORMATIONVital Sign Triage LatestTemp Oral 36.5 DegC 36.5 DegCTemp Temporal 36.6 DegC 37.1 DegCTemp IntravascularTemp AxillaryTemp Xihikv38 Sat 94 % 97 %Respiratory Rate 16 [...] section and content) DATE CREATED AUTHOR 10/22/2018 [facility] DATE CREATED AUTHOR AUTHOR'S ORGANIZ ATION 12/23/2018 [facility] DATE CREATED AUTHOR AUTHOR'S ORGANIZ ATION 05/18/2021 [facility] DATE CREATED AUTHOR AUTHOR'S ORGANIZ ATION 09/05/2023 [facility] dical Specialists [facility] REASON FOR VISIT (unrecogniz ed section and content) #17 [employer] - cough , congestion, sore throat, [...] BE BASED ON THE PRIMARY CLINICAL RECORDS. [email or web address] provides no warranty or guarantee of the accuracy or completeness of information in this document.
--- NOTE | 2023-11-18 16:03 | US_ITS ---
The [address] [address] Patient Name: RADHA TARIQ MRN: [id number] date: 1960 Sex: M Assigned Patient Location: ER Current Patient Location: ER Accession/Order Number: [id number] Exam Date: 11/18/2023 16:10 Report Date: 11/18/2023 17:33 At the request of: JONELLE DE LA CRUZ Procedure: US venous doppler LE RT Ultrasound venous duplex scan right lower extremity CLINICAL: Right leg swelling. Known DVT from previous study 09/22/2023. TECHNIQUE: Box-scale, color Doppler and Duplex examination of the RIGHT lower extremity was performed with and without provocative maneuvers. FINDINGS: Comparison: Ultrasound 09/22/2023 The proximal common femoral vein and saphenofemoral junction demonstrates normal color flow and compression. There is lack of complete compressibility involving the mid superficial femoral vein extending to the popliteal vein, consistent with deep venous thrombus. There is lack of compressibility involving the peroneal vein, also positive for thrombus. Small saphenous vein in the calf without color flow or compressibility. There is normal compressibility of the proximal profunda femoris vein. US/US venous doppler LE RT IMPRESSION: 1. Positive for deep venous thrombosis in the right leg from the mid superficial femoral vein to the popliteal vein. This finding is known and was seen on previous ultrasound 09/22/2023. There is also thrombus in the peroneal vein. 2. Positive superficial venous thrombus of the small saphenous vein in the right calf. This finding was also present on previous ultrasound 09/22/2023. Electronically authenticated by: HAKAN CHAVIRA Date: 11/18/2023 17:33
--- NOTE | 2023-11-18 17:33 | ED.EXTPRO1 ---
HPI - Extremity Problem General Chief complaint: Extremity Problem, Nontraumatic Stated complaint: Right Leg Edema Time Seen by Provider: 11/18/23 16:02 Source: patient Mode of arrival: walk-in Limitations: no limitations History of Present Illness HPI Narrative: Patient developed swelling and warmth in the right lower leg 3 nights ago. He kept the leg propped up at night while sleeping and the swelling was decreased the next morning. But it continued to swell each day while the patient was active. He was diagnosed with right LE DVT in 10/03 and has been on Eliquis since. He saw the ESTATE PLANNING COUNSELOR with Dr Porras a few weeks later for follow up but no repeat US was ordered/obtained. He stopped wearing compression stockings a few weeks ago. No chest pain, shortness of breath or exertional dyspnea. Inciting event is believed to be multiple right pubic rami and acetabular fractures from a fall in Jul 2023. Related Data Home Medications Medication Instructions Recorded Confirmed calcium 500 mg tablet mg 09/22/23 apixaban 5 mg tablet (Eliquis) 5 mg PO BID 11/18/23 11/18/23 Allergies Allergy/AdvReac Type Severity Reaction Status Date / Time hay fever Allergy Mild Uncoded 09/22/23 20:09 PFSH PFS Surgical History History of appendectomy ?Z90.49 - Acquired absence of other specified parts of digestive tract (ICD-10) History of bilateral knee arthroplasty ?Z96.653 - Presence of artificial knee joint, bilateral (ICD-10) Family History Grandmother Family history of cancer Family history of stroke Father Family history of diabetes mellitus Family history of hypertension Mother Family history of diabetes mellitus Family history of hypertension Social History Within the past year, how often did you have a drink containing alcohol: 2-3 times a week Within the past year, how many standard drinks containing alcohol did you have on a typical day: 1 or 2 Within the past year, how often did you have six or more drinks on one occasion: less than monthly Total score: 1 Score interpretation: A score of 4 or more indicates drinking is likely to affect patient's safety. Smoking status: Never smoker Second hand tobacco smoke exposure: No Non-prescribed substance use: denies use Previous occupational history: [employer], dump truck driver off highway Known occupational exposures/hazards: Yes Known occupational exposures/hazards details: chemical exposure Highest level of school completed/degree received: high school graduate Do you want help with school or training: No Are you now , , , , never or living with a partner: In a typical week, how many times do you talk on the telephone with family, friends, or neighbors: 3 or more times per week How often do you get together with friends or relatives: once per week How often do you attend hinduism or gnosticism services: 4 or more times per year Do you belong to any clubs or organizations such as hinduism groups unions, [employer] or athletic groups, or school groups: yes Total score: 4 Score interpretation: A score of greater than or equal to 2 indicates the lowest level of social isolation. Little interest or pleasure in doing things: not at all Feeling down, depressed, or hopeless: not at all Feel stressed/tense/nervous/anxious/difficulty sleeping: to some extent Due to disability, difficulty making decisions: No Do you think of yourself as: straight/heterosexual Gender Identity: male Exam Narrative Exam Narrative: Nurses notes and vital signs reviewed and patient is not hypoxic. afebrile General: Well-appearing and in no apparent distress. Skin: Warm, dry, no pallor noted. Eye: Pupils are equal, round and EOMI. No scleral icterus. Cardiovascular: Regular Rate and Rhythm without murmur, gallop or rub. Respiratory: No accessory muscle use or respiratory distress. Lungs are clear to auscultation, no wheezing, rales or rhonchi Musculoskeletal: Both LEs with normal ROM. Right LE - swelling and warmth without erythema noted to the right lower leg - 5 cm larger when compared with left calf. No calf or popliteal tenderness. Left LE - no calf or popliteal tenderness, no lower extremity edema/swelling Neurological: A&O x4. No cranial nerve dysfunction observed. No truncal ataxia. Moves all extremities. Sensation intact. Psychiatric: Cooperative and interactive. Normal mood and affect. Constitutional Vital Signs, click to edit/add: Last Vital Signs Temp 97.5 F L 11/18/23 15:42 Pulse 85 11/18/23 15:42 Resp 20 11/18/23 15:42 BP 153/82 H 11/18/23 15:42 Pulse Ox 95 11/18/23 15:42 O2 Del Method Room Air 11/18/23 15:42 Course Vital Signs Vital signs: Vital Signs Temperature 97.5 F L 11/18/23 15:42 Pulse Rate 85 11/18/23 15:42 Respiratory Rate 20 11/18/23 15:42 Blood Pressure 153/82 H 11/18/23 15:42 Pulse Oximetry 95 11/18/23 15:42 Oxygen Delivery Method Room Air 11/18/23 15:42 Temperature 97.5 F L 11/18/23 15:42 Pulse Rate 85 11/18/23 15:42 Respiratory Rate 20 11/18/23 15:42 Blood Pressure 153/82 H 11/18/23 15:42 Pulse Oximetry 95 11/18/23 15:42 Oxygen Delivery Method Room Air 11/18/23 15:42 MDM - Extremity (Nontraumatic) MDM Narrative Medical decision making narrative: Patient was sent for venous Doppler ultrasound of the right lower extremity. Comparison of his current venous ultrasound with the 1 obtained in September 2023 shows that he now has involvement of the peroneal vein in the calf but no extension or increase in the remainder of his deep venous thromboses or superficial thrombosis. I spoke with Dr. MENDEZ, vascular surgeon on-call for [facility] in [place]. We discussed this patient's case. He recommended that the patient be discharged home, instructed to increase his activity while wearing compression stockings and follow-up in the office for reevaluation. He did not recommend increasing the patient's dose of Eliquis. He did recommend 2 to 3 days of NSAID use for any inflammation or pain. Patient was informed of this and discharged home. He was instructed return to the emergency department if he developed chest pain, shortness of breath or any extension of pain into the thigh or groin. In the meantime he will see Dr. Mendez in the office in [place] Imaging Data RIGHT LE TIFF DOPPLER US: Radiologist's impression: ITS Impressions Venous Doppler Study 11/18/23 16:03 IMPRESSION: 1. Positive for deep venous thrombosis in the right leg from the mid superficial femoral vein to the popliteal vein. This finding is known and was seen on previous ultrasound 09/22/2023. There is also thrombus in the peroneal vein. 2. Positive superficial venous thrombus of the small saphenous vein in the right calf. This finding was also present on previous ultrasound 09/22/2023. Electronically authenticated by: HAKAN CHAVIRA Date: 11/18/2023 17:33 Discharge Plan Discharge Chief Complaint: Extremity Problem, Nontraumatic Clinical Impression: Deep vein thrombosis of lower extremity Patient Disposition: Home, Self-Care Time of Disposition Decision: 17:44 Prescriptions / Home Meds: No Action calcium 500 mg tablet Eliquis 5 mg tablet 5 mg PO BID Rx Instructions: 10 mg PO BID x 7 days, then 5 mg BID x 21 days Instructions: Deep Vein Thrombosis (ED) Stand Alone Forms: Portal Instructions Referrals: [facility] [Outside] - 11/19/23 (Call [phone] Mendez (Vascular surgery))
== END 2023-11-18 18:24 | disposition home or self-care (01) ==
PROVIDERS: Emergency Provider Emergency Medicine; PCP Family Medicine
DX: I82.411 Acute embolism and thrombosis of right femoral vein (principal); I82.431 Acute embolism and thrombosis of right popliteal vein; I82.451 Acute embolism and thrombosis of right peroneal vein; I82.811 Embolism and thrombosis of superficial veins of right lower extremity; Z79.01 Long term (current) use of anticoagulants; Z90.49 Acquired absence of other specified parts of digestive tract; Z96.653 Presence of artificial knee joint, bilateral
CPT/HCPCS: 93971; 99284